=== PATIENT | male | born 1965 | race Caucasian/White ===

== ENCOUNTER → 2018-01-11 | Outpatient (CLI) | payer BC ==
[2018-01-11 09:31] LABS: Basophils # (A) 0.1 k/uL (0-0.2); Basophils % (A) 1 %; Eosinophils # (A) 0.2 k/uL (0-0.7); Eosinophils % (A) 3 %; HCT 49.6 % (39.0-53.0); HGB 16.3 gm/dL (13.0-17.5); Lymphocytes % (A) 35 %; MCH 33.2 pg (25.0-35.0); MCHC 32.8 g/dL (31.0-37.0); MCV 101.2 fL (80.0-100.0); Macrocytosis Slight; Mean Platelet Volume 6.8; Monocytes # (A) 0.3 k/uL (0-1.0); Monocytes % (A) 4 %; Neutrophils # (A) 4.7 k/uL (1.3-7.7); Neutrophils % (A) 56 %; Platelet Count 212 k/uL (150-450); RDW 14.2 % (11.5-15.5); WBC 8.5 k/uL (3.8-10.6)
== END | disposition home or self-care (01) ==
LOC: LABWHC1 08:38
PROVIDERS: ATTEND Surgery
DX: Z01.818 Encounter for other preprocedural examination (principal); F17.200 Nicotine dependence, unspecified, uncomplicated; D64.9 Anemia, unspecified; K43.2 Incisional hernia without obstruction or gangrene; Z01.812 Encounter for preprocedural laboratory examination
CPT/HCPCS: 36415; 85025; 93005

== ENCOUNTER 2018-01-12 08:30 | Inpatient (IN) | payer BC ==
[2018-01-10 15:21] VITALS: BMI 38.7
[~2018-01-12 08:30] MED LIST: HEPARIN SODIUM,PORCINE 5,000 UNIT/ML 1 ML VIAL SQ ONE; MORPHINE SULFATE 2 MG/ML SYRINGE IV PRN; ceFAZolin IN SWFI 2 GM/20 ML SYRINGE IVP ONE
[2018-01-12] MEDS: LACTATED RINGERS 1,000 ML IV SCH ×2 (09:44→18:01)
[2018-01-12 09:46] LABS: Glucose,Whole Blood 136 mg/dL (75-99)
[2018-01-12] MEDS ORDERED: DEXAMETHASONE SOD PHOSPHATE 10 MG/ML 1 ML VIAL IV ONE (10:00)
[2018-01-12] MEDS ORDERED: ONDANSETRON 4 MG/2 ML VIAL IVP ONE (10:00)
--- NOTE | 2018-01-12 10:08 | P.GSHP ---
History of Present Illness H&P Date: 01/12/18 Chief Complaint: Incisional hernia This is a 52-year-old male who's developed an incisional hernia in the upper midline. Patient is today for laparoscopic robotic system repair. Past Medical History Past Medical History: COPD, Diabetes Mellitus, Hyperlipidemia, Hypertension, Osteoarthritis (OA), Renal Disease, Sleep Apnea/CPAP/BIPAP Additional Past Medical History / Comment(s): CPAP MACHINE , acute renal failure 2014- History of Any Multi-Drug Resistant Organisms: None Reported Past Surgical History: Bowel Resection, Cholecystectomy Additional Past Surgical History / Comment(s): Laparoscopic R colectomy. HAD FRONT TEETH PULLED UNDER ANESTHESIA, COLONOSCOPY Past Anesthesia/Blood Transfusion Reactions: No Reported Reaction Additional Past Anesthesia/Blood Transfusion Reaction / Comment(s): Pt has never received blood. Smoking Status: Current every day smoker - Past Family History Father Family Medical History: Diabetes Mellitus, Prostate Disorder, Renal Disease Additional Family Medical History / Comment(s): Father is 72 yrs old. Mother Family Medical History: Diabetes Mellitus Additional Family Medical History / Comment(s): Mother is 72 yrs old. She has a murmur. Pt does not know what type of blood disorder but it causes her to bruise easily. Medications and Allergies Home Medications Medication Instructions Recorded Confirmed Type amLODIPine BES/OLMESARTAN MED 1 tab PO DAILY 01/14/15 11/14/15 History [Nica 10-40 mg Tablet] buPROPion XL [Wellbutrin XL] 150 mg PO DAILY 05/10/15 01/10/18 History Atorvastatin [Lipitor] 80 mg PO HS 11/14/15 01/12/18 History Glimepiride [Amaryl] 2 mg PO BID #60 tab 11/19/15 01/12/18 Rx Naproxen [Naprosyn] 500 mg PO Q12HR PRN 01/10/18 01/10/18 History Allergies Allergy/AdvReac Type Severity Reaction Status Date / Time No Known Allergies Allergy Verified 01/10/18 14:35 Surgical - Exam Vital Signs Temp Pulse Resp BP Pulse Ox 98.1 F 97 16 151/96 98 01/12/18 09:43 01/12/18 09:43 01/12/18 09:43 01/12/18 09:43 01/12/18 09:43 - General well developed, no distress - Eyes PERRL - ENT normal pinna - Neck no masses - Respiratory normal expansion - Cardiovascular Rhythm: regular - Abdomen Abdomen: soft, non tender Hernia: incisional (5 cm incisional hernia located in the midline above the umbilicus) Results - Labs Abnormal Lab Results - Last 24 Hours (Table) 01/12/18 Range/Units 09:41 POC Glucose (mg/dL) 136 H (75-99) mg/dL Assessment and Plan Assessment: Incisional hernia. We'll perform laparoscopic robotic system repair.
[2018-01-12] MEDS ORDERED: MIDAZOLAM 2 MG/2 ML VIAL IVP ONE (10:23)
[2018-01-12] MEDS ORDERED: SUCCINYLCHOLINE CHLORIDE 100 MG/5 ML SYR IV ONE (10:55)
[2018-01-12] MEDS ORDERED: NEOSTIGMINE 1 MG/ML 10 ML VIAL ONE (10:55)
[2018-01-12] MEDS ORDERED: ROCURONIUM BROMIDE 10 MG/ML 10 ML VIAL IV ONE (10:55)
[2018-01-12] MEDS ORDERED: ePHEDrine SULFATE/0.9% NACL/PF 50 MG/5 ML SYRINGE IV ONE (10:55)
[2018-01-12] MEDS ORDERED: PROPOFOL 10 MG/ML 20 ML VIAL IV ONE (10:55)
[2018-01-12] MEDS ORDERED: PHENYLEPHRINE-0.9% NACL SYG 1 MG/10 ML SYRINGE ONE (10:55)
[2018-01-12] MEDS ORDERED: MIDAZOLAM 2 MG/2 ML VIAL ONE (10:55)
[2018-01-12] MEDS ORDERED: fentaNYL (PF) 50 MCG/ML 2 ML AMP ONE (10:55)
[2018-01-12] MEDS ORDERED: KETOROLAC 30 MG/ML 1 ML VIAL ONE (10:55)
[2018-01-12] MEDS ORDERED: GLYCOPYRROLATE 0.2 MG/ML 2 ML VIAL ONE (10:55)
[2018-01-12] MEDS ORDERED: BUPIVACAIN-EPI 0.5%-1:200,000 30 ML VIAL SQ ONE (11:18)
[2018-01-12] MEDS: HYDROmorphone 0.5 MG/0.5 ML SYRINGE IVP PRN ×4 (12:48→13:13)
--- NOTE | 2018-01-12 12:49 | P.OP ---
Date of Procedure: 01/12/18 Preoperative Diagnosis: Incisional hernia Postoperative Diagnosis: Incisional hernia Procedure(s) Performed: Laparoscopic robotic repair of incisional hernia Anesthesia: PAT Surgeon: Tramaine Peña Estimated Blood Loss (ml): 5 Pathology: none sent Condition: stable Disposition: PACU Description of Procedure: The patient was placed on the operating table in the supine position. He received general anesthesia. His abdomen was prepped and draped usual fashion. Using a 5 mm optical trocar under direct visualization the peritoneal cavity was entered in the left upper quadrant. The abdomen was then insufflated. The laparoscope was placed back into the perineal cavity. Next a 8 mm robotic trocar was placed in the left lower quadrant and a 12 mm robotic trocar was placed in the left lateral position. The original 5 mm trocar was exchanged for a 8 mm robotic trocar. The patient's placed in the left side up position. And the patient was docked to the robot. The incisional hernia was visualized. Using hook cautery the peritoneum over the incisional hernia was excised. The fascial opening was repaired using 0V LOC suture. Next a piece of 11 cm round ventral light ST mesh was placed into the. Cavity and secured with 2 OV lock suture. The patient was undocked the robot. The needles were retrieved. The fascia of the 12 mm trocar site was closed with 0 Ethibond suture. Skin was closed interrupted 3-0 Monocryl suture. Dermabond dressings was applied. Patient tolerated procedure well and was sent to recovery room stable condition.
[2018-01-12] MEDS ORDERED: KETOROLAC 30 MG/ML 1 ML VIAL IVP ONE (13:56)
[2018-01-12] MEDS ORDERED: LACTATED RINGERS 1,000 ML IV ONE (14:09)
[2018-01-12 14:47] LABS: Glucose,Whole Blood 167 mg/dL (75-99)
[2018-01-12] MEDS ORDERED: HYDROcodone/APAP 5-325MG 1 EACH TAB PO ONE (15:01)
[2018-01-12] MEDS ORDERED: ONDANSETRON 4 MG/2 ML VIAL IVP PRN (16:45)
[2018-01-12] MEDS ORDERED: NAPROXEN 250 MG TAB PO PRN (17:04)
[2018-01-12] MEDS: HYDROmorphone 1 MG/ML 1 ML SYRINGE IVP PRN ×2 (18:07→21:07)
[2018-01-12] MEDS: GLIMEPIRIDE 2 MG TAB PO SCH (18:30)
[2018-01-12 19:56] LABS: Glucose,Whole Blood 157 mg/dL (75-99)
[2018-01-12] MEDS: ATORVASTATIN 80 MG TAB PO SCH (21:07)
[2018-01-12] MEDS: INSULIN ASPART 100 UNIT/ML 1 ML 10 ML VIAL SQ SCH (21:07)
[2018-01-13] MEDS: HYDROmorphone 1 MG/ML 1 ML SYRINGE IVP PRN ×8 (00:44→22:35)
[2018-01-13 06:56] LABS: Glucose,Whole Blood 115 mg/dL (75-99)
[2018-01-13] MEDS: INSULIN ASPART 100 UNIT/ML 1 ML 10 ML VIAL SQ SCH ×4 (07:47→21:11)
[2018-01-13] MEDS: LACTATED RINGERS 1,000 ML IV SCH ×3 (07:47→11:29)
[2018-01-13] MEDS: GLIMEPIRIDE 2 MG TAB PO SCH ×2 (07:54→17:35)
[2018-01-13] MEDS ORDERED: OLMESARTAN MED PO SCH (09:00)
[2018-01-13] MEDS ORDERED: AMLODIPINE BES PO SCH (09:00)
[2018-01-13] MEDS: LOSARTAN 50 MG TAB PO SCH (09:46)
[2018-01-13] MEDS: buPROPion XL 150 MG TAB.ER.24H PO SCH (09:46)
[2018-01-13] MEDS: amLODIPine 10 MG TAB PO SCH (09:46)
[2018-01-13] MEDS ORDERED: SODIUM CHLORIDE 0.9% 1,000 ML IV ONE (10:05)
[2018-01-13] MEDS: TAMSULOSIN 0.4 MG CAP.ER.24H PO SCH (10:29)
--- NOTE | 2018-01-13 11:42 | P.PN ---
Subjective Progress Note Date: 01/13/18 52-year-old male standing up at the bedside this morning attempting to urinate patient developed urinary retention straight cath last night. Currently abdomen is distended bladder scan postvoid residual greater than [address] catheter inserted with 600 returning surgical dressing sites dry. Abdominal binder in place Hypoactive bowel tones states not stooling but is passing gas Patient is postop laparoscopic repair of incisional hernia done on January 12 for incisional hernia. Objective - Vital Signs Vital signs: Vital Signs Temp 98.0 F 01/13/18 07:45 Pulse 67 01/13/18 07:45 Resp 18 01/13/18 07:45 BP 125/88 01/13/18 07:45 Pulse Ox 92 L 01/13/18 07:45 Intake & Output 01/12/18 01/13/18 01/13/18 18:59 06:59 18:59 Intake Total 1999 1945 320 Output Total 5 1520 550 Balance 1994 425 -230 Weight 115.666 kg Intake: IV 2000 Intake, IV Titration 975 Amount Lactated Ringers 1,000 ml 975 @ 75 mls/hr IV .[id number] [facility] Rx#:[id number] Oral 970 320 Output: Urine 1520 550 Straight 510 550 Estimated Blood Loss 5 Other: Voiding Method Urinal Urinal Urinal # Voids 1 - Exam GENERAL APPEARANCE:52 year old male standing at the edge of the bed states has a lot of abdominal pain "cannot urinate" VITAL SIGNS: Reviewed HEENT: Head is normocephalic and atraumatic. Pupils are equal and reactive. The nares are patent. Oropharynx is clear without lesions. NECK: Supple without lymphadenopathy. Traches midline. HEART: S1, S2. Regular rate and rhythm. No murmur denying chest pain LUNGS: Posterior diminished at the bases nasal cannula at 3 L sats are 92% ABDOMEN: Soft, obese diffuse tenderness mildly distended surgical dressing site dry states passing gas no stool nausea sensation no emesis. Hypoactive bowel tones. No peritoneal signs. No palpable organomegaly or masses. EXTREMITIES: Normal skin color and turgor. No cyanosis, rash, ulceration, clubbing or edema. Radial pedal pulses are 2/4 bilaterally. NEUROLOGICAL: No focal deficits. Strength and sensation are grossly intact. - Labs Labs: Abnormal Lab Results - Last 24 Hours (Table) 01/12/18 01/12/18 01/13/18 Range/Units 14:38 19:55 06:54 POC Glucose (mg/dL) 167 H 157 H 115 H (75-99) mg/dL Assessment and Plan Assessment: Impression Postop January 12 laparoscopic robotic repair of incisional hernia Morbid obesity BMI 39 History of sleep apnea with the use of CPAP therapy Urinary retention postop unexpected suspect due to anesthesia and analgesics History of incisional hernia Current have a day smoker History of a laparoscopic right colectomy Plan Pain control Continue postop surgical care Fluid bolus 1 L for poor oral intake Flomax 0.4mg daily start now Insert indwelling Street catheter now DVT and GI prophylaxis Encourage ambulation The above impression and plan of care have been discussed and directed by signing physician. Judith Roblero nurse practitioner acting as scribe for signing physician.
[2018-01-13] MEDS: FAMOTIDINE 20 MG TAB PO SCH (12:01)
[2018-01-13] MEDS: HEPARIN SODIUM,PORCINE 5,000 UNIT/ML 1 ML VIAL SQ SCH ×3 (12:01→23:27)
[2018-01-13 13:00] LABS: Glucose,Whole Blood 200 mg/dL (75-99)
[2018-01-13 17:23] LABS: Glucose,Whole Blood 94 mg/dL (75-99)
[2018-01-13 20:24] LABS: Glucose,Whole Blood 104 mg/dL (75-99)
[2018-01-13] MEDS: ATORVASTATIN 80 MG TAB PO SCH (21:15)
--- NOTE | 2018-01-13 22:47 | CONS ---
CONSULTATION I am covering for Dr. Tipton. DATE OF SERVICE: 01/13/2018. REASON FOR CONSULTATION: Advice regarding diabetes and other medical issues requested by Surgery. HISTORY OF PRESENT ILLNESS: This 52 -year-old gentleman with past history of COPD, diabetes, hypertension, hyperlipidemia, history of DJD, sleep apnea, history of anxiety being followed by Dr. Curtis Tipton in the outpatient setting underwent laparoscopic robotic repair of incisional hernia. The patient tolerated the procedure well. Patient being closely monitored. There is no history of chest pain. No history of palpitations, headache, loss of consciousness, seizures. Accu-Cheks have been 157, 159, 200. PAST MEDICAL HISTORY: History of COPD, diabetes, hypertension, hyperlipidemia, DJD, history of sleep apnea. MEDICATIONS ARE: 1. Wellbutrin XR 150 mg daily. 2. Naprosyn 500 mg b.i.d. 3. Amaryl 2 mg b.i.d. 4. Lipitor 80 mg b.i.d. 5. Boulevard 7.5 q.4h p.r.n. 6. Colace 100 mg b.i.d. ALLERGIES: None. FAMILY HISTORY: History of diabetes in the family. SOCIAL HISTORY: History of alcohol, TSH. History of smoking. REVIEW OF SYSTEMS: ENT: No diminished vision. No diminished hearing. CARDIOVASCULAR: No angina or palpitations. RESPIRATORY: No cough. No hemoptysis. GI no nausea or vomiting. no dysuria. Nervous system: No numbness or weakness. ALLERGY/IMMUNOLOGY: No asthma or hayfever. MUSCULOSKELETAL: As mentioned earlier. HEMATOLOGY/ONCOLOGY: No history of anemia. ENDOCRINE: As mentioned earlier. Constitutional: As mentioned earlier. DERMATOLOGY: Negative. RHEUMATOLOGY: Negative. PSYCHIATRIC: As mentioned earlier. PHYSICAL EXAMINATION: GENERAL: The patient is alert, oriented times three. VITAL SIGNS: Pulse 67, blood pressure 120/80, respiration 18, temperature 98 degrees, pulse ox 98% on 3 L. HEENT is conjunctivae normal. Oral mucosa moist. Neck is no jugular venous distention. No carotid bruit. No lymph node enlargement. CARDIOVASCULAR: S1, S2 muffled. RESPIRATORY: Breath sounds diminished in the bases. No rhonchi. No crackles. ABDOMEN: Soft, status post surgery. Legs are no edema. No swelling. NERVOUS SYSTEM: No focal deficits. Moves all four extremities. Lymphatics: No lymph nodes palpable in the neck, axillae or groin. LABS: The preop labs are CBC, MCV 101.2 otherwise, chemistry is sodium 147. Other labs are reviewed. ASSESSMENT: 1. Status post laparoscopic robotic repair of incisional hernia. 2. History of chronic obstructive pulmonary disease. 3. Diabetes mellitus type 2. 4. Hypertension. 5. Hyperlipidemia. 6. History of degenerative joint disease. 7. Sleep apnea. 8. CPAP machine. 9. History of cholecystectomy. 10.History of bowel resection. 11.History of laparoscopic right colectomy. 12.History of anxiety. RECOMMENDATIONS AND DISCUSSION: In this 52-year-old gentleman who presented with multiple complex medical issues, we will monitor the patient closely, continue the current medications, management and symptomatic treatment. Otherwise, at this time, I recommend monitor the blood sugars and resume the home medications. We will follow the patient closely with you. The patient may be asked to follow up with Dr. Tipton after discharge. Thank you Dr. Peña for letting us participate in the care of this patient. DVT prophylaxis. Incentive spirometry. MMODL / IJN: [id number] /
[2018-01-14] MEDS: HYDROmorphone 1 MG/ML 1 ML SYRINGE IVP PRN ×5 (01:48→23:33)
[2018-01-14] MEDS: HYDROcodone/APAP 5-325MG 1 EACH TAB PO PRN ×2 (06:03→12:25)
[2018-01-14 07:15] LABS: Glucose,Whole Blood 104 mg/dL (75-99)
[2018-01-14 07:53] LABS: Basophils # (A) 0.1 k/uL (0-0.2); Basophils % (A) 1 %; Eosinophils # (A) 0.2 k/uL (0-0.7); Eosinophils % (A) 2 %; HCT 45.4 % (39.0-53.0); HGB 14.3 gm/dL (13.0-17.5); Lymphocytes # (A) 3.3 k/uL (1.0-4.8); Lymphocytes % (A) 30 %; MCH 32.4 pg (25.0-35.0); MCHC 31.5 g/dL (31.0-37.0); MCV 102.9 fL (80.0-100.0); Macrocytosis Slight; Mean Platelet Volume 7.4; Monocytes # (A) 0.7 k/uL (0-1.0); Monocytes % (A) 6 %; Neutrophils # (A) 6.8 k/uL (1.3-7.7); Neutrophils % (A) 61 %; Platelet Count 200 k/uL (150-450); RBC 4.41 m/uL (4.30-5.90); WBC 11.1 k/uL (3.8-10.6)
[2018-01-14 08:08] LABS: ALT 37 U/L (21-72); AST 56 U/L (17-59); Albumin 3.7 g/dL (3.5-5.0); Alkaline Phosphatase 80 U/L (38-126); Anion Gap 7 mmol/L; Blood Urea Nitrogen 16 mg/dL (9-20); Calcium 8.8 mg/dL (8.4-10.2); Carbon Dioxide 30 mmol/L (22-30); Chloride 105 mmol/L (98-107); Glucose 101 mg/dL (74-99); Potassium 4.3 mmol/L (3.5-5.1); Sodium 142 mmol/L (137-145); Total Bilirubin 0.8 mg/dL (0.2-1.3); Total Protein 6.5 g/dL (6.3-8.2)
[2018-01-14] MEDS: HEPARIN SODIUM,PORCINE 5,000 UNIT/ML 1 ML VIAL SQ SCH ×4 (08:12→23:33)
[2018-01-14] MEDS: amLODIPine 10 MG TAB PO SCH (08:13)
[2018-01-14] MEDS: GLIMEPIRIDE 2 MG TAB PO SCH ×2 (08:13→18:02)
[2018-01-14] MEDS: LOSARTAN 50 MG TAB PO SCH (08:13)
[2018-01-14] MEDS: TAMSULOSIN 0.4 MG CAP.ER.24H PO SCH (08:13)
[2018-01-14] MEDS: FAMOTIDINE 20 MG TAB PO SCH (08:13)
--- NOTE | 2018-01-14 08:42 | P.PN ---
Subjective Progress Note Date: 01/14/18 52-year-old male seen at the bedside states he did ambulate in the hallway several times yesterday. Not passing gas no nausea vomiting tolerating a diet states no stool indwelling Street catheter in place abdomen obese soft surgical tenderness appropriate with an abdominal binder in place surgical dressing site dry few hypoactive bowel tones postop laparoscopic repair of incisional hernia done on January 12 for incisional hernia. Objective - Vital Signs Vital signs: Vital Signs Temp 98.3 F 01/14/18 08:01 Pulse 78 01/14/18 08:01 Resp 20 01/14/18 08:01 BP 146/92 01/14/18 08:01 Pulse Ox 95 01/14/18 08:01 Intake & Output 01/13/18 01/14/18 01/14/18 18:59 06:59 18:59 Intake Total 2275 900 Output Total 1000 875 580 Balance 1275 25 -580 Intake: Intake, IV Titration 1375 900 Amount Lactated Ringers 1,000 ml 375 900 @ 75 mls/hr IV .[id number] [facility] Rx#:[id number] Sodium Chloride 0.9% 1, 1000 000 ml @ 999 mls/hr IV . Q1H1M [facility] Rx#:[id number] Oral 900 Output: Urine 1000 875 580 Straight 1000 580 Other: Voiding Method Indwelling Catheter Indwelling Catheter - Exam GENERAL APPEARANCE:52 year old male resting in bed VITAL SIGNS: Reviewed reviewed HEENT: Head is normocephalic and atraumatic. Pupils are equal and reactive. The nares are patent. Oropharynx is clear without lesions. NECK: Supple without lymphadenopathy. Traches midline. HEART: S1, S2. Regular rate and rhythm. No murmur denying chest pain LUNGS: Posterior diminished at the bases nasal cannula at 3 L sats are 92% ABDOMEN: Soft, obese diffuse tenderness mildly distended surgical dressing site dry states passing gas no stool nausea sensation no emesis tolerating a diet. Hypoactive bowel tones. No peritoneal signs. No palpable organomegaly or masses. EXTREMITIES: Normal skin color and turgor. No cyanosis, rash, ulceration, clubbing or edema. Radial pedal pulses are 2/4 bilaterally. NEUROLOGICAL: No focal deficits. Strength and sensation are grossly intact. - Labs CBC & Chem 7: 01/14/18 07:01 01/14/18 07:01 Labs: Abnormal Lab Results - Last 24 Hours (Table) 01/13/18 01/13/18 01/14/18 Range/Units 12:58 20:22 07:01 WBC 11.1 H (3.8-10.6) k/uL MCV 102.9 H (80.0-100.0) fL Glucose (74-99) mg/dL POC Glucose (mg/dL) 200 H 104 H (75-99) mg/dL 01/14/18 01/14/18 Range/Units 07:01 07:13 WBC (3.8-10.6) k/uL MCV (80.0-100.0) fL Glucose 101 H (74-99) mg/dL POC Glucose (mg/dL) 104 H (75-99) mg/dL Assessment and Plan Assessment: Impression Postop January 12 laparoscopic robotic repair of incisional hernia Morbid obesity BMI 39 History of sleep apnea with the use of CPAP therapy Urinary retention postop unexpected suspect due to anesthesia and analgesics History of incisional hernia Current have a day smoker History of a laparoscopic right colectomy Plan Pain control Continue postop surgical care Flomax 0.4mg daily start now Remove Street catheter now check postvoid residuals Anticipate discharge in the next 24-48 hours DVT and GI prophylaxis Encourage ambulation The above impression and plan of care have been discussed and directed by signing physician. Judith Roblero nurse practitioner acting as scribe for signing physician.
[2018-01-14] MEDS: INSULIN ASPART 100 UNIT/ML 1 ML 10 ML VIAL SQ SCH ×4 (08:57→20:30)
[2018-01-14] MEDS: LACTATED RINGERS 1,000 ML IV SCH ×2 (09:37→16:39)
[2018-01-14] MEDS: buPROPion XL 150 MG TAB.ER.24H PO SCH (09:37)
[2018-01-14 12:26] LABS: Glucose,Whole Blood 110 mg/dL (75-99)
--- NOTE | 2018-01-14 12:54 | P.DS ---
Providers Date of admission: 01/13/18 13:45 Expected date of discharge: 01/14/18 Attending physician: Tramaine Peña Consults: 01/12/18 16:56 Consult Physician Stat Consulting Provider: Elis Strong Consult Reason/Comments: MEDICAL MANAGEMENT Do you want consulting provider notified?: Yes Primary care physician: [facility] Course: 52-year-old male who developed an incisional hernia in the upper midabdomen. Presented to undergo a elective laparoscopic robotic system repair of the incisional hernia done on January 12 postoperative patient developed unexpected urinary retention suspect due to anesthesia and analgesics. Patient was started on flomax . Street catheter was inserted. On the day of discharge the Street catheter was removed. Patient was able to void Impression discharge diagnosis Postop January 12 laparoscopic robotic repair of incisional hernia Morbid obesity BMI 39 History of sleep apnea with the use of CPAP therapy Urinary retention postop unexpected suspect due to anesthesia and analgesics History of incisional hernia Current have a day smoker History of a laparoscopic right colectomy The above impression and plan of care have been discussed and directed by signing physician. Judith Roblero nurse practitioner acting as scribe for signing physician. Plan - Discharge Summary Discharge Rx Participant: Yes New Discharge Prescriptions: New Docusate [Colace] 100 mg PO BID #20 capsule HYDROcodone/APAP 7.5-325MG [Follansbee 7.5-325] 1 tab PO Q4H PRN 3 Days #18 tab PRN Reason: Pain No Action buPROPion XL [Wellbutrin XL] 150 mg PO DAILY Atorvastatin [Lipitor] 80 mg PO HS Glimepiride [Amaryl] 2 mg PO BID #60 tab Naproxen [Naprosyn] 500 mg PO Q12HR PRN PRN Reason: Pain Discharge Medication List buPROPion XL [Wellbutrin XL] 150 mg PO DAILY 05/10/15 [History] Atorvastatin [Lipitor] 80 mg PO HS 11/14/15 [History] Glimepiride [Amaryl] 2 mg PO BID #60 tab 11/19/15 [Rx] Naproxen [Naprosyn] 500 mg PO Q12HR PRN 01/10/18 [History] Docusate [Colace] 100 mg PO BID #20 capsule 01/12/18 [Rx] HYDROcodone/APAP 7.5-325MG [Follansbee 7.5-325] 1 tab PO Q4H PRN 3 Days #18 tab 01/12 [Rx] Follow up Appointment(s)/Referral(s): Tramaine Peña MD [STAFF PHYSICIAN] - 01/18/18 3:20 pm Patient Instructions/Handouts: *Surgery [facility] - (Anesthesia) Discharge Instructions Outpatient Surgery, Laparoscopic Herniorrhaphy (DC) Activity/Diet/Wound Care/Special Instructions: ICE TO ABDOMEN TODAY OK SHOWER 24HR KEEP BINDER ON ALL TIMES EXCEPT WHEN SHOWERING, NO TUB BATH OR POOL. NO HEAVY LIFTING
--- NOTE | 2018-01-14 15:18 | PN ---
PROGRESS NOTE I am covering for Dr. Tipton. DATE OF SERVICE: 01/14/2018 This 52-year-old gentleman who was admitted after laparoscopic robotic repair of incisional hernia is improving significantly. No chest pain. No palpitations. No fever. On exam, alert and oriented x3. Pulse 78, blood pressure 146/92, respiration 20, temperature 98.3, pulse ox 94% on 4 L. HEENT: Conjunctivae normal. Oral mucosa moist. NECK: No jugular venous distention. No carotid bruit. No lymph node enlargement. CARDIOVASCULAR SYSTEM: S1, S2 muffled. RESPIRATORY SYSTEM: Breath sounds diminished at the bases. No rhonchi. No crackles. ABDOMEN: Soft. Status post surgery. LEGS: No edema. No swelling. NERVOUS SYSTEM: No focal deficit. LABS: WBC 11.1. Glucose 101. ASSESSMENT: 1. Status post laparoscopic robotic repair of incisional hernia. 2. History of chronic obstructive pulmonary disease. 3. Diabetes mellitus, type 2. 4. Hypertension. 5. Hyperlipidemia. 6. History of degenerative joint disease. 7. Sleep apnea, on CPAP machine. 8. History of cholecystectomy. 9. History of bowel resection. 10.History of laparoscopic right colectomy. 11.History of anxiety. RECOMMENDATIONS AND DISCUSSION: I recommend to continue current medication, continue with the monitoring, symptomatic treatment. Otherwise at this time I would recommend incentive spirometry. Resume the home medication. Follow closely with Dr. Tipton next week. Further recommendations to follow. MMODL / IJN: [id number] /
[2018-01-14 17:16] LABS: Glucose,Whole Blood 89 mg/dL (75-99)
[2018-01-14] MEDS: ATORVASTATIN 80 MG TAB PO SCH (20:24)
[2018-01-14 20:25] LABS: Glucose,Whole Blood 161 mg/dL (75-99)
[2018-01-15] MEDS: HYDROmorphone 1 MG/ML 1 ML SYRINGE IVP PRN ×3 (02:31→08:23)
[2018-01-15 07:05] LABS: Glucose,Whole Blood 86 mg/dL (75-99)
[2018-01-15] MEDS: INSULIN ASPART 100 UNIT/ML 1 ML 10 ML VIAL SQ SCH ×2 (08:16→13:00)
[2018-01-15 08:19] VITALS: BP 156/95; PULSE 87; RESP 17; TEMP 98.7
[2018-01-15] MEDS: HEPARIN SODIUM,PORCINE 5,000 UNIT/ML 1 ML VIAL SQ SCH (08:23)
[2018-01-15] MEDS: LOSARTAN 50 MG TAB PO SCH (08:24)
[2018-01-15] MEDS: TAMSULOSIN 0.4 MG CAP.ER.24H PO SCH (08:24)
[2018-01-15] MEDS: amLODIPine 10 MG TAB PO SCH (08:24)
[2018-01-15] MEDS: FAMOTIDINE 20 MG TAB PO SCH (08:24)
[2018-01-15] MEDS: buPROPion XL 150 MG TAB.ER.24H PO SCH (08:24)
[2018-01-15] MEDS: GLIMEPIRIDE 2 MG TAB PO SCH (08:24)
[2018-01-15] MEDS: LACTATED RINGERS 1,000 ML IV SCH (08:25)
--- NOTE | 2018-01-15 09:24 | P.PN ---
Progress Note - Text Progress Note Date: 01/15/18 The patient resting comfortably his bed. His vital signs are stable. On exam his vital abdomen is soft. Incision sites clean and intact. Patiently discharged home today. He'll follow-up in one week.
[2018-01-15 11:55] LABS: Glucose,Whole Blood 134 mg/dL (75-99)
[2018-01-15] MEDS: HYDROcodone/APAP 5-325MG 1 EACH TAB PO PRN (12:44)
== END 2018-01-15 13:10 | disposition home or self-care (01) | DRG 355 ==
LOC: OR 08:30 → 3SUR 12:46 → OR 01-13 02:41 → 3SUR 01-13 07:43 → OBSVTOIN 01-13 13:45
PROVIDERS: ADMIT Surgery; ATTEND Surgery
PROC: 0WUF4JZ Supplement Abdominal Wall with Synthetic Substitute, Percutaneous Endoscopic Approach (ICD-10-PCS; principal; 2018-01-12 10:35)
PROC: 8E0W4CZ Robotic Assisted Procedure of Trunk Region, Percutaneous Endoscopic Approach (ICD-10-PCS; principal; 2018-01-12 10:35)
PROC: 3E0M45Z Introduction of Adhesion Barrier into Peritoneal Cavity, Percutaneous Endoscopic Approach (ICD-10-PCS; principal; 2018-01-12 10:35)
DX: K43.2 Incisional hernia without obstruction or gangrene (principal); E11.9 Type 2 diabetes mellitus without complications; E66.01 Morbid (severe) obesity due to excess calories; E78.5 Hyperlipidemia, unspecified; F17.200 Nicotine dependence, unspecified, uncomplicated; G47.30 Sleep apnea, unspecified; Z99.89 Dependence on other enabling machines and devices; I10 Essential (primary) hypertension; J44.9 Chronic obstructive pulmonary disease, unspecified; Z68.39 Body mass index [BMI] 39.0-39.9, adult; Z83.3 Family history of diabetes mellitus; Z90.49 Acquired absence of other specified parts of digestive tract; Z79.84 Long term (current) use of oral hypoglycemic drugs; R33.0 Drug induced retention of urine; T41.205A Adverse effect of unspecified general anesthetics, initial encounter; T39.95XA Adverse effect of unspecified nonopioid analgesic, antipyretic and antirheumatic, initial encounter
CPT/HCPCS: 64488; 80053; 83036; 85025; 86850; 86900; 86901; 94760; 94762

== ENCOUNTER → 2024-03-20 | Outpatient (CLI) | payer BC ==
--- NOTE | 2024-03-21 09:16 | MR ---
EXAMINATION TYPE: MR nicci/lspine wo con DATE OF EXAM: 03/20/2024 7:20 PM COMPARISON: 02/14/2024. CLINICAL INDICATION: Male, 59 years old with history of M47.816, R29.6, M54.50, M54.6, M54.16; mid a nd low back pain that radiates down right leg TECHNIQUE: Multi planar, multi sequence imaging was performed utilizing: T1-weighted, T2-weighted, a nd turbo inversion recovery imaging of the thoracic and lumbar spine. IV Contrast: mL (None, if empty) FINDINGS: Alignment: The thoracic and lumbar vertebral bodies have preserved heights. There is grade 1 atrial l isthesis of L5 and S1. Cord: The conus medullaris and the distal spinal cord appear unremarkable with regards to their signa l intensity and morphology. Bones/Discs: Bone signal is within normal limits. Moderate multilevel disc space narrowing osteophyte formation Modic endplate changes throughout the spine. There is bony edema on the midthoracic spine at T5 tod7. THORACIC: Multilevel disc bulging throughout the spine without significant spinal canal stenosis. Mul tiple levels disc bulging encroaches on the ventral subarachnoid space. The neural foramen throughout the thoracic spine are patent with a few areas of mild stenosis suggested. No high-grade neural fora marlo stenosis. LUMBAR: T12-L1: No evidence of significant spinal canal stenosis or neural foraminal stenosis. L1-L2: No evidence of significant spinal canal stenosis or neural foraminal stenosis. L2-L3: Disc bulge and facet joint arthropathy result in mild spinal canal and mild bilateral neural f oraminal stenosis. L3-L4: Disc bulge and facet joint arthropathy result in mild spinal canal and mild bilateral neural f oraminal stenosis. L4-L5: Disc bulge and facet joint arthropathy result in mild spinal canal and mild bilateral neural f oraminal stenosis. L5-S1: Disc uncovering from grade 1 anterolisthesis and facet joint arthropathy with mild spinal diana l stenosis and severe bilateral neural foraminal stenosis. Other findings: Adenopathy throughout the retroperitoneum with large conglomerate lymph nodes identi fied. Including bilateral external iliac measuring up to 13 mm on the left and 15 mm in the right marcelino und the aorta measuring up to 33 mm and IVC measuring up to 18 mm. IMPRESSION: 1. Motion limited exam. 2. Lymphadenopathy throughout the retroperitoneum correlate with history of malignancy. Further work up recommended. 3. Bony edema in T5, T6 and T7. Findings favored to be on a degenerative basis. 4. Grade 1 anterolisthesis of L5 on S1 with severe bilateral neural foraminal stenosis. The spinal c anal is patent at this level. 5. No evidence for significant spinal canal stenosis. 6. No evidence for disc herniation. Findings communicated to Dr. He Chery DO on 03/21/2024 9:[address] Paul Tucker. [facility], , 03/21/2024 9:13 AM
== END | disposition home or self-care (01) ==
LOC: RADMRIMAIN 17:43
PROVIDERS: ATTEND Orthopaedic Surgery
DX: M47.26 Other spondylosis with radiculopathy, lumbar region (principal); M43.17 Spondylolisthesis, lumbosacral region; R29.6 Repeated falls; R59.1 Generalized enlarged lymph nodes; R06.9 Unspecified abnormalities of breathing; M99.73 Connective tissue and disc stenosis of intervertebral foramina of lumbar region; R60.9 Edema, unspecified
CPT/HCPCS: 72146; 72148

== ENCOUNTER 2024-04-03 15:52 | Inpatient (IN) | payer BC ==
--- NOTE | 2024-04-03 16:22 | ED ---
Abdominal Pain HPI - General Source: patient Mode of arrival: ambulatory Limitations: no limitations <Ray Robles - Last Filed: 04/03/24 16:22> <Paul Monte - Last Filed: 04/03/24 23:42> - General Chief Complaint: Abdominal Pain Stated Complaint: Abd pain Time Seen by Provider: 04/03/24 16:22 - History of Present Illness Initial Comments: 59-year-old male presenting with chief complaint of abdominal pain. Pain has been ongoing for 4 months and has been getting progressively worse. He does have some diarrhea. No nausea or vomiting. (Ray Robles) 59-year-old male, current smoker presenting with generalized abdominal pain which has been worsening over the past 4 months and has significantly worsened recently. Patient has also had hematuria for some time. He has had associated nausea and vomiting. No measured fever. (Paul Monte) - Related Data Home Medications Medication Instructions Recorded Confirmed buPROPion XL [Wellbutrin XL] 150 mg PO DAILY 05/10/15 01/13/18 Atorvastatin [Lipitor] 80 mg PO HS 11/14/15 01/13/18 Naproxen [Naprosyn] 500 mg PO Q12HR PRN 01/10/18 01/13/18 Previous Rx's Medication Instructions Recorded Glimepiride [Amaryl] 2 mg PO BID #60 tab 11/19/15 Docusate [Colace] 100 mg PO BID #20 capsule 01/12/18 HYDROcodone/APAP 7.5-325MG [[place] 1 tab PO Q4H PRN 3 Days #18 tab 01/12/18 7.5-325] Allergies Allergy/AdvReac Type Severity Reaction Status Date / Time No Known Allergies Allergy Verified 04/03/24 16:10 Review of Systems ROS Other: All systems not noted in ROS Statement are negative. <Ray Robles - Last Filed: 04/03/24 16:22> ROS Other: All systems not noted in ROS Statement are negative. <Paul Monte - Last Filed: 04/03/24 23:42> ROS Statement: Those systems with pertinent positive or pertinent negative responses have been documented in the HPI. Past Medical History Past Medical History: COPD, Diabetes Mellitus, Hyperlipidemia, Hypertension, Osteoarthritis (OA), Renal Disease, Sleep Apnea/CPAP/BIPAP Additional Past Medical History / Comment(s): CPAP MACHINE , acute renal failure 2014- History of Any Multi-Drug Resistant Organisms: None Reported Past Surgical History: Bowel Resection, Cholecystectomy Additional Past Surgical History / Comment(s): Laparoscopic R colectomy. HAD FRONT TEETH PULLED UNDER ANESTHESIA, COLONOSCOPY Past Anesthesia/Blood Transfusion Reactions: No Reported Reaction Additional Past Anesthesia/Blood Transfusion Reaction / Comment(s): Pt has never received blood. Past Psychological History: Anxiety Past Alcohol Use History: Occasional Past Drug Use History: Marijuana - Past Family History Father Family Medical History: Diabetes Mellitus, Prostate Disorder, Renal Disease Additional Family Medical History / Comment(s): Father is 72 yrs old. Mother Family Medical History: Diabetes Mellitus Additional Family Medical History / Comment(s): Mother is 72 yrs old. She has a murmur. Pt does not know what type of blood disorder but it causes her to bruise easily. <Ray Robles - Last Filed: 04/03/24 16:22> General Exam Limitations: no limitations <Ray Robles - Last Filed: 04/03/24 16:22> General appearance: alert, in distress Head exam: Present: atraumatic, normocephalic Eye exam: Present: normal appearance, PERRL ENT exam: Present: mucous membranes dry Neck exam: Present: normal inspection. Absent: tenderness, meningismus Respiratory exam: Present: decreased breath sounds. Absent: respiratory distress, wheezes Cardiovascular Exam: Present: normal rhythm, tachycardia GI/Abdominal exam: Present: soft, tenderness, guarding Neurological exam: Present: alert, oriented X3 Psychiatric exam: Present: normal affect, normal mood Skin exam: Present: warm, dry, intact <OttoanhPaul jewell - Last Filed: 04/03/24 23:42> - General Exam Comments Initial Comments: Visual Physical Exam Vital signs reviewed General: Well-appearing, nontoxic, no acute distress. Head: Normocephalic, atraumatic Eyes: PERRLA, EOMI ENT: Airway patent Chest: Nonlabored breathing Skin: No visual rash, normal skin tone Neuro: Alert and oriented 3 Musculoskeletal: No gross abnormalities (Ray Robles) Course Vital Signs 04/03/24 04/03/24 16:08 20:35 Temperature 98.6 F 98.4 F Pulse Rate 105 H 104 H Respiratory 18 12 Rate Blood Pressure 111/81 98/68 O2 Sat by Pulse 99 96 Oximetry Medical Decision Making <Ray Robles - Last Filed: 04/03/24 16:22> - Lab Data Result diagrams: 04/03/24 19:00 04/03/24 19:00 <Paul Monte - Last Filed: 04/03/24 23:42> - Medical Decision Making I performed the quick note portion of this visit, electronically signed Rya Robles PA-C (Ray Robles) Was pt. sent in by a medical professional or institution (ADITI Callahan, SUBGRADE ROLLER OPERATOR, urgent care, hospital, or skilled nursing...) When possible be specific @ -No Did you speak to anyone other than the patient for history (EMS, parent, family, police, friend...)? What history was obtained from this source @ -No Did you review nursing and triage notes (agree or disagree)? Why? @ -I reviewed and agree with nursing and triage notes Were old charts reviewed (outside hosp., previous admission, EMS record, old EKG, old radiological studies, urgent care reports/EKG's, skilled nursing records)? Report findings @ -No old charts were reviewed Differential Abdominal Pain Men: Appendicitis, cholecystitis, diverticulosis, ischemic bowel, pancreatitis, hepatitis, UTI, gastroenteritis, AAA, incarcerated hernia, bowel obstruction, constipation, inflammatory bowel, hepatitis, peptic ulcer disease, splenic infarction, perforated viscus, testicular torsion, this is not meant to be an all-inclusive list EKG interpreted by me (3pts min.). @ -As above X-rays interpreted by me (1pt min.). @ -None done CT interpreted by me (1pt min.). @CT abdomen pelvis showing lymphadenopathy and bladder wall thickening concerning for neoplasm. U/S interpreted by me (1pt. min.). @ -None done What testing was considered but not performed or refused? (CT, X-rays, U/S, labs)? Why? @ -None What meds were considered but not given or refused? Why? @ -None Did you discuss the management of the patient with other professionals (professionals i.e. , ADITI, SUBGRADE ROLLER OPERATOR, lab, RT, psych nurse, high school social studies tutor, internal security manager, teacher, eeo officer, case packer)? Give summary @ -Case discussed with Dr. Pete who will admit. Was smoking cessation discussed for >3mins.? @ -No Was critical care preformed (if so, how long)? @ -No Were there social determinants of health that impacted care today? How? (Homelessness, low income, unemployed, alcoholism, drug addiction, transportation, low edu. Level, literacy, decrease access to med. care, [facility], rehab)? @ -No Was there de-escalation of care discussed even if they declined (Discuss DNR or withdrawal of care, Hospice)? DNR status @ -No What co-morbidities impacted this encounter? (DM, HTN, Smoking, COPD, CAD, Cancer, CVA, ARF, Chemo, Hep., AIDS, mental health diagnosis, sleep apnea, morbid obesity)? @ -[Current smoker Was patient admitted / discharged? Hospital course, mention meds given and route, prescriptions, significant lab abnormalities, going to OR and other pertinent info. @ -Ho 59-year-old male with 4 months of worsening abdominal pain and hematuria. Patient is very uncomfortable on exam with generalized abdominal tenderness. Workup reveals a mild leukocytosis, at 15, stable hemoglobin, urinalysis is positive both for RBCs and WBCs without bacteria. Urine culture is obtained. CT of the abdomen pelvis showing adenopathy and bladder wall thickening. Patient is very uncomfortable in the emergency department will be admitted for pain control and evaluation of bladder wall thickening, with lymphadenopathy. Undiagnosed new problem with uncertain prognosis? @ -[No Drug Therapy requiring intensive monitoring for toxicity (Heparin, Nitro, Insulin, Cardizem)? @ -No Were any procedures done? @ -No Diagnosis/symptom? @Intractable abdominal pain, lymphadenopathy, bladder wall thickening Acute, or Chronic, or Acute on Chronic? @ -Acute Uncomplicated (without systemic symptoms) or Complicated (systemic symptoms)? @ -Default Side effects of treatment? @ -No Exacerbation, Progression, or Severe Exacerbation? @ -No Poses a threat to life or bodily function? How? (Chest pain, [place], [place], pneumonia, PE, COPD, DKA, ARF, appy, cholecystitis, CVA, Diverticulitis, Homicidal, Suicidal, threat to staff... and all critical care pts) @Yes, concern for neoplasm (Paul Monte) - Lab Data Lab Results 04/03/24 04/03/24 04/03/24 Range/Units 19:00 19:00 19:00 WBC 14.9 H (3.8-10.6) k/uL RBC 4.83 (4.30-5.90) m/uL Hgb 13.6 (13.0-17.5) gm/dL Hct 43.1 (39.0-53.0) % MCV 89.1 (80.0-100.0) fL MCH 28.2 (25.0-35.0) pg MCHC 31.7 (31.0-37.0) g/dL RDW 13.6 (11.5-15.5) % Plt Count 500 H (150-450) k/uL MPV 6.1 Neutrophils % 71 % Lymphocytes % 21 % Monocytes % 4 % Eosinophils % 2 % Basophils % 1 % Neutrophils # 10.6 H (1.3-7.7) k/uL Lymphocytes # 3.1 (1.0-4.8) k/uL Monocytes # 0.6 (0-1.0) k/uL Eosinophils # 0.4 (0-0.7) k/uL Basophils # 0.1 (0-0.2) k/uL Sodium 138 (137-145) mmol/L Potassium 4.8 (3.5-5.1) mmol/L Chloride 103 (98-107) mmol/L Carbon Dioxide 25 (22-30) mmol/L Anion Gap 10 mmol/L BUN 23 H (9-20) mg/dL Creatinine 1.00 (0.66-1.25) mg/dL Est GFR (CKD-EPI)AfAm >90 (>60 ml/min/1.73 sqM) Est GFR (CKD-EPI)NonAf 81 (>60 ml/min/1.73 sqM) Glucose 93 (74-99) mg/dL Plasma Lactic Acid R[place] 1.6 (0.7-2.0) mmol/L Calcium 10.3 H (8.4-10.2) mg/dL Total Bilirubin 0.4 (0.2-1.3) mg/dL AST 17 (17-59) U/L ALT 10 (4-49) U/L Alkaline Phosphatase 104 (38-126) U/L Total Protein 7.6 (6.3-8.2) g/dL Albumin 4.1 (3.5-5.0) g/dL Amylase 60 (30-110) U/L Lipase 83 (23-300) U/L Urine Color Urine Appearance (Clear) Urine pH (5.0-8.0) Ur Specific [place] (1.001-1.035) Urine Protein (Negative) Urine Glucose (UA) (Negative) Urine Ketones (Negative) Urine Blood (Negative) Urine Nitrite (Negative) Urine Bilirubin (Negative) Urine Urobilinogen (<2.0) mg/dL Ur Leukocyte Esterase (Negative) Urine RBC (0-5) /hpf Urine WBC (0-5) /hpf Urine Mucus (None) /hpf 04/03/24 Range/Units 21:22 WBC (3.8-10.6) k/uL RBC (4.30-5.90) m/uL Hgb (13.0-17.5) gm/dL Hct (39.0-53.0) % MCV (80.0-100.0) fL MCH (25.0-35.0) pg MCHC (31.0-37.0) g/dL RDW (11.5-15.5) % Plt Count (150-450) k/uL MPV Neutrophils % % Lymphocytes % % Monocytes % % Eosinophils % % Basophils % % Neutrophils # (1.3-7.7) k/uL Lymphocytes # (1.0-4.8) k/uL Monocytes # (0-1.0) k/uL Eosinophils # (0-0.7) k/uL Basophils # (0-0.2) k/uL Sodium (137-145) mmol/L Potassium (3.5-5.1) mmol/L Chloride (98-107) mmol/L Carbon Dioxide (22-30) mmol/L Anion Gap mmol/L BUN (9-20) mg/dL Creatinine (0.66-1.25) mg/dL Est GFR (CKD-EPI)AfAm (>60 ml/min/1.73 sqM) Est GFR (CKD-EPI)NonAf (>60 ml/min/1.73 sqM) Glucose (74-99) mg/dL Plasma Lactic Acid [place] (0.7-2.0) mmol/L Calcium (8.4-10.2) mg/dL Total Bilirubin (0.2-1.3) mg/dL AST (17-59) U/L ALT (4-49) U/L Alkaline Phosphatase (38-126) U/L Total Protein (6.3-8.2) g/dL Albumin (3.5-5.0) g/dL Amylase (30-110) U/L Lipase (23-300) U/L Urine Color Light Red Urine Appearance Cloudy (Clear) Urine pH 6.0 (5.0-8.0) Ur Specific [place] 1.018 (1.001-1.035) Urine Protein 2+ H (Negative) Urine Glucose (UA) Negative (Negative) Urine Ketones Negative (Negative) Urine Blood Large H (Negative) Urine Nitrite Negative (Negative) Urine Bilirubin Negative (Negative) Urine Urobilinogen <2.0 (<2.0) mg/dL Ur Leukocyte Esterase Moderate H (Negative) Urine RBC >182 H (0-5) /hpf Urine WBC >182 H (0-5) /hpf Urine Mucus Many H (None) /hpf Disposition <Ray Robles - Last Filed: 04/03/24 16:22> Is patient prescribed a controlled substance at d/c from ED?: No Time of Disposition: 23:42 <Paul Monte - Last Filed: 04/03/24 23:42> Clinical Impression: Dehydration, Nausea & vomiting, Abdominal lymphadenopathy, Bladder wall thickening Disposition: ADMITTED IP TO THIS HOSP Referrals: Curtis Tipton DO [Primary Care Provider] - 1-2 days
[2024-04-03 19:10] LABS: Basophils # (A) 0.1 k/uL (0-0.2); Basophils % (A) 1 %; Eosinophils # (A) 0.4 k/uL (0-0.7); Eosinophils % (A) 2 %; HCT 43.1 % (39.0-53.0); HGB 13.6 gm/dL (13.0-17.5); Lymphocytes # (A) 3.1 k/uL (1.0-4.8); Lymphocytes % (A) 21 %; MCH 28.2 pg (25.0-35.0); MCHC 31.7 g/dL (31.0-37.0); MCV 89.1 fL (80.0-100.0); Mean Platelet Volume 6.1; Monocytes # (A) 0.6 k/uL (0-1.0); Monocytes % (A) 4 %; Neutrophils # (A) 10.6 k/uL (1.3-7.7); Neutrophils % (A) 71 %; Platelet Count 500 k/uL (150-450); RBC 4.83 m/uL (4.30-5.90); RDW 13.6 % (11.5-15.5); WBC 14.9 k/uL (3.8-10.6)
[2024-04-03 19:27] LABS: ALT 10 U/L (4-49); AST 17 U/L (17-59); African American GFR (CKD) >90 (>60 ml/min/1.73 sqM); Albumin 4.1 g/dL (3.5-5.0); Alkaline Phosphatase 104 U/L (38-126); Amylase 60 U/L (30-110); Anion Gap 10 mmol/L; Blood Urea Nitrogen 23 mg/dL (9-20); Calcium 10.3 mg/dL (8.4-10.2); Carbon Dioxide 25 mmol/L (22-30); Chloride 103 mmol/L (98-107); Glucose 93 mg/dL (74-99); Lipase 83 U/L (23-300); Non-African American GFR(CKD) 81 (>60 ml/min/1.73 sqM); Potassium 4.8 mmol/L (3.5-5.1); Sodium 138 mmol/L (137-145); Total Bilirubin 0.4 mg/dL (0.2-1.3); Total Protein 7.6 g/dL (6.3-8.2)
[2024-04-03 22:03] LABS: Appearance,Urine Cloudy (Clear); Bilirubin,Urine Negative (Negative); Blood,Urine Large (Negative); Color,Urine Light Red; Glucose,Urine (UA) Negative (Negative); Ketones,Urine Negative (Negative); Leukocyte Esterase,Urine Moderate (Negative); Mucus,Urine Many /hpf; Nitrite,Urine Negative (Negative); Protein,Urine 2+ (Negative); RBC,Urine >182 /hpf (0-5); Specific Gravity,Urine 1.018 (1.001-1.035); Urobilinogen,Urine <2.0 mg/dL (<2.0); WBC,Urine >182 /hpf (0-5)
--- NOTE | 2024-04-03 22:26 | CT ---
EXAMINATION TYPE: CT abdomen pelvis w con DATE OF EXAM: 04/03/2024 9:00 PM COMPARISON: None. CLINICAL INDICATION: Male, 59 years old with history of abdominal pain, Abdominal pain for 4 months, no NVD. Pain seems to migrate around abdomen. TECHNIQUE: Axial images were obtained from above the diaphragm to the pubic rami in the axial plane a t 5 mm thick sections. Reconstructed images are reviewed on the computer in the coronal plane. CONTRAST: 100 ml mL of Isovue 300. Study performed without Oral Contrast DLP: 1306.4 mGycm, Automated exposure control for dose reduction was used. FINDINGS: Limited CT sections are obtained the lung bases. The lung bases are clear. CT ABDOMEN: Extensive para-aortic and some retrocaval adenopathy is present. Additional workup for ly mphoma is recommended. Metastasis should be considered Liver: Normal Spleen: Normal. Small splenule is adjacent. Pancreas: Normal Adrenal glands: The adrenal glands are normal. Gallbladder: Normal Kidneys: No masses are evident. No hydronephrosis is present. Cortical renal cysts are present. De layed images were obtained through the kidneys, which remain unremarkable. Aorta: Vascular calcification is within the aorta. Inferior vena cava: Normal. CT PELVIS: Diverticuli sigmoid colon. Some mild diffuse wall thickening may be present on previous can be relate d to incomplete distention. Small bowel loops contain fluid. No obstruction is evident. Appendix: Normal as visualized. Urinary bladder: Wall irregularity is present along the inferior and dependent portions. Mild diffuse wall thickening and remaining urinary bladder. Additional workup neoplasm is recommended. Genitourinary structures: Prostate is prominent. Osseous structures: No suspicious lytic or sclerotic lesions. IMPRESSION: 1. Irregular wall thickening within urinary bladder. Workup for neoplasm is recommended. 2. Extensive periaortic adenopathy. Consider lymphoma and metastasis within the differential. 3. Prostate prominence. 4. Diverticulosis without acute diverticulitis. 5. Some mild diffuse wall thickening through the sigmoid colon is not excluded. [facility], , 04/03/2024 10:24 PM
[2024-04-03] MEDS: MORPHINE SULFATE 4 MG/ML SYRINGE IVP STA (22:46)
[2024-04-03] MEDS ORDERED: NALOXONE 0.4 MG/ML 1 ML VIAL IV PRN (23:37)
[2024-04-03] MEDS ORDERED: ACETAMINOPHEN TAB 325 MG TAB PO PRN (23:37)
[2024-04-04] MEDS: HYDROmorphone 1 MG/ML 1 ML SYRINGE IVP PRN (00:25)
[2024-04-04] MEDS: SODIUM CHLORIDE 0.9% 1,000 ML IV SCH (02:47)
[2024-04-04] MEDS: ONDANSETRON 4 MG/2 ML VIAL IVP PRN (07:49)
[2024-04-04 10:00] LABS: Basophils # (A) 0.1 k/uL (0-0.2); Basophils % (A) 0 %; Eosinophils # (A) 0.3 k/uL (0-0.7); Eosinophils % (A) 2 %; HCT 38.9 % (39.0-53.0); HGB 12.5 gm/dL (13.0-17.5); Lymphocytes # (A) 1.6 k/uL (1.0-4.8); Lymphocytes % (A) 10 %; MCH 28.6 pg (25.0-35.0); MCHC 32.3 g/dL (31.0-37.0); MCV 88.6 fL (80.0-100.0); Mean Platelet Volume 6.2; Monocytes # (A) 0.7 k/uL (0-1.0); Monocytes % (A) 4 %; Neutrophils # (A) 13.3 k/uL (1.3-7.7); Neutrophils % (A) 83 %; Platelet Count 427 k/uL (150-450); RBC 4.39 m/uL (4.30-5.90); RDW 13.6 % (11.5-15.5)
[2024-04-04 10:38] LABS: Ionized Calcium 5.2 mg/dL (4.5-5.3)
[2024-04-04] MEDS ORDERED: DICYCLOMINE 10 MG CAP PO PRN (12:37)
[2024-04-04] MEDS ORDERED: HYDROcodone/APAP 5-325MG 1 EACH TAB PO PRN (12:38)
[2024-04-04] MEDS ORDERED: DEXTROSE 50% SYRINGE 50 ML IVP PRN ×2 (13:36)
[2024-04-04] MEDS ORDERED: ALBUTEROL NEBULIZED 2.5 MG/3 ML INHALATION PRN (13:37)
--- NOTE | 2024-04-04 14:08 | P.HPIM ---
History of Present Illness H&P Date: 04/04/24 Chief Complaint: Abdominal pain Patient is a 59 year old male with past medical history of gastric ulcers, diabetes mellitus, hyperlipidemia, hypertension, LICHA on CPAP, osteoarthritis, tobacco dependence presented to the ED with abdominal pain. Patient states the pain started 4-5 months ago. The pain is in the umbilical region more to the left side. He mentions the pain has worsened in the past few days making him unable to do anything but sleep. Currently denies any changes in bowel habits, nausea, vomiting, hematochezia, melena. He mentions having a colonoscopy done about 10 years ago when a large colon mass was found that was unable to be removed via the colonoscope and he had to undergo laparoscopic right colectomy. At the time he also had to undergo laparoscopic umbilical hernia repair and a couple months later he had laparoscopic cholecystectomy. He hasn't had a colonoscopy since. However he does have hematuria and he endorses suprapubic pain while urinating along with increased frequency since 6-8 months. Moreover, he has a family history of prostatic cancer. He also reports back and shoulder pain for which he had an MRI done two weeks ago that also showed retroperitoneal lymphadenopathy. Denies fever, chills, shortness of breath, cough, chest pain, palpitations, dysuria, headache, slurred speech, numbness, tingling, dizziness, lightheadednes s. ED documentation reviewed. In the ED patient was treated with dilaudid, morphine, Zofran and 0.9 normal saline. Vitals on admission T 98.6 F, MD 105 bpm, RR 18, BP 111/81, O2 sat 99% on room air Abdomen and pelvis CT shows irregular wall thickening within urinary bladder, recommend neoplasm workup. Extensive fatou aortic adenopathy, consider lymphoma and metastasis in the differential. Prostate prominence. Diverticulosis without acute diverticulitis. Mild diffuse wall thickening through the sigmoid colon is not excluded Labs on admission show WBC 14.9, platelet 500, sodium 138, potassium 4.8, BUN 23, amylase 60, lipase 83, calcium 10.3 UA shows 2+ protein, large blood, moderate leukocyte esterase, more than 182 RBC and WBC, many mucus Review of systems: Pertinent positives and negatives as discussed in HPI, a complete review of systems was performed and all other systems are negative. Social history: Tobacco: Current smoker, 1 PPD Alcohol: Occasional Recreational drugs: Marijuana daily Travel: No recent travel history Sick contacts: None Physical examination: Vital signs reviewed General: nontoxic, no distress, appears at stated age, overweight Derm: warm, dry, intact Head: atraumatic, normocephalic, symmetric Eyes: EOMI, anicteric sclera Mouth: no lip lesion, mucus membranes moist Cardiovascular: S1 S2 reg, no murmur Lungs: diminished lung sounds Abdominal: soft, tender to palpation in the umbilical region Extremities: No cyanosis, clubbing, or pedal edema Neuro: Alert, Oriented, Gross neurological examination did not reveal any focal deficits. Psych: well appearing, appropriate affect Assessment/Plan: Patient is a 59 year old male with past medical history of COPD, diabetes mellitus, hyperlipidemia, hypertension, on CPAP, osteoarthritis presented to the ED with abdominal pain. He is found to have abdominal lymphadenopathy and is admitted for further workup for neoplasm. Active: #. Abdominal lymphadenoapthy #. Urinary bladder wall thickening #. Hematuria #. Leukocytosis -Abdomen and pelvis CT shows irregular wall thickening within urinary bladder, recommend neoplasm workup. Extensive fatou aortic adenopathy, consider lymphoma and metastasis in the differential. Prostate prominence. Diverticulosis without acute diverticulitis. Mild diffuse wall thickening through the sigmoid colon is not excluded -UA shows 2+ protein, large blood, moderate leukocyte esterase, more than 182 RBC and WBC, many mucus WBC 14.9 -Continue Acetaminophen 650 mg p.o. every 6 hours as needed, Dilaudid 0.5 mg IVP every 3 hours as needed (PS 4-6), Dilaudid 1 mg IVP every 3 hours as needed (PS 7-10), [place] 5-325 PO Q6HR PRN, Dicyclomine 10 mg PO TID PRN, Pyridium 100 mg PO TID PRN for pain management -Obtain TIFFANY, PSA and urine culture -Monitor CBC and BMP -Consult Oncology and Urology #. Acute hypoxic respiratory failure -Continue supplemental oxygen as needed -Albuterol 2.5 mg inhalation QID PRN -Obtain Chest X-ray #. Nausea and vomiting -Continue Zofran 4 mg IVP Q8HR PRN #. Hypercalcemia -Ca 10.3 -Obtain vitamin D 25-hydroxy, vitamin D 1, 25 dihydroxy, ionized calcium, parathyroid hormone, rheumatoid factor and repeat calcium Chronic: #. Diabetes mellitus #. Hypertension #. Hyperlipidemia #. Anxiety #. Tobacco dependence -Insulin sliding scale with ACHS blood glucose monitoring, Hold home glimepiride -Continue home meds [id number] p.o. daily, atorvastatin 80 mg p.o. at bedtime, Bupropion 150 mg PO daily F: 0.9 normal saline at 75 mL/h E: Replete as required N: Regular diet GI prophylaxis: Pantoprazole 40 mg p.o. daily The patient is admitted with an anticipated more than 2 midnight stay for evaluation of abdominal pain CODE STATUS: FULL CODE Discussed with: Patient Anticipated discharge place: Home Attestation I have seen and examined this patient with my resident , discussed the same with the resident/YAZAN, and agree with the dictator's assessment and plan as written Dr. Terrence pandya Past Medical History Past Medical History: COPD, Diabetes Mellitus, Hyperlipidemia, Hypertension, Osteoarthritis (OA), Renal Disease, Sleep Apnea/CPAP/BIPAP Additional Past Medical History / Comment(s): CPAP MACHINE , acute renal failure 2014- History of Any Multi-Drug Resistant Organisms: None Reported Past Surgical History: Bowel Resection, Cholecystectomy Additional Past Surgical History / Comment(s): Laparoscopic R colectomy. HAD FRONT TEETH PULLED UNDER ANESTHESIA, COLONOSCOPY Past Anesthesia/Blood Transfusion Reactions: No Reported Reaction Additional Past Anesthesia/Blood Transfusion Reaction / Comment(s): Pt has never received blood. Past Psychological History: Anxiety Past Alcohol Use History: Occasional Past Drug Use History: Marijuana - Past Family History Father Family Medical History: Diabetes Mellitus, Prostate Disorder, Renal Disease Additional Family Medical History / Comment(s): Father is 72 yrs old. Mother Family Medical History: Diabetes Mellitus Additional Family Medical History / Comment(s): Mother is 72 yrs old. She has a murmur. Pt does not know what type of blood disorder but it causes her to bruise easily. Medications and Allergies Home Medications Medication Instructions Recorded Confirmed Type buPROPion XL [Wellbutrin XL] 150 mg PO DAILY 05/10/15 04/04/24 History Atorvastatin [Lipitor] 80 mg PO HS 11/14/15 04/04/24 History Glimepiride [Amaryl] 2 mg PO BID #60 tab 11/19/15 04/04/24 Rx amLODIPine BES/OLMESARTAN MED 1 tab PO DAILY 04/04/24 04/04/24 History [amLODIPine BES/OLMESARTAN MED 10-40 mg] Allergies Allergy/AdvReac Type Severity Reaction Status Date / Time No Known Allergies Allergy Verified 04/04/24 09:00 Physical Exam Vitals: Vital Signs Temp Pulse Resp BP Pulse Ox 04/04/24 08:40 94 L 04/04/24 08:38 84 L 04/04/24 08:21 98.2 F 04/04/24 06:37 87 18 93/82 97 04/04/24 03:57 84 18 91/72 94 L 04/04/24 01:55 59 L 16 96/68 97 04/03/24 20:35 98.4 F 104 H 12 98/68 96 04/03/24 16:08 98.6 F 105 H 18 111/81 99 Intake and Output 04/03/24 04/04/24 04/04/24 22:59 06:59 14:59 Other: Weight 87.09 kg Results CBC & Chem 7: 04/05/24 02:55 04/05/24 02:55 Labs: Abnormal Lab Results - Last 24 Hours (Table) 04/03/24 04/03/24 04/03/24 Range/Units 19:00 19:00 21:22 WBC 14.9 H (3.8-10.6) k/uL Plt Count 500 H (150-450) k/uL Neutrophils # 10.6 H (1.3-7.7) k/uL BUN 23 H (9-20) mg/dL Calcium 10.3 H (8.4-10.2) mg/dL Urine Protein 2+ H (Negative) Urine Blood Large H (Negative) Ur Leukocyte Esterase Moderate H (Negative) Urine RBC >182 H (0-5) /hpf Urine WBC >182 H (0-5) /hpf Urine Mucus Many H (None) /hpf
--- NOTE | 2024-04-04 15:09 | P.GSCN ---
History of Present Illness Consult date: 04/04/24 Reason for Consult: Hematuria Requesting physician: Tristan E Sheet History of present illness: The patient is a 59-year-old white male admitted for evaluation of abdominal pain. The pain is suprapubic and periumbilical, and has been present for several months. He also reports gross painless hematuria for a duration of approximately 8 months. He states that he has passed some kidney stones, none recently. He denies any prior history of UTIs. He has smoked 1 pack of cigarettes daily for 40 years. Review of Systems - Constitutional Denies chills, Denies fever - Cardiovascular Reports high blood pressure - Gastrointestinal Reports abdominal pain, Reports diarrhea, Denies nausea, Denies vomiting - Genitourinary Reports hematuria, Denies dysuria, Denies flank pain Past Medical History Past Medical History: COPD, Diabetes Mellitus, Hyperlipidemia, Hypertension, Osteoarthritis (OA), Renal Disease, Sleep Apnea/CPAP/BIPAP Additional Past Medical History / Comment(s): CPAP MACHINE , acute renal failure 2014- History of Any Multi-Drug Resistant Organisms: None Reported Past Surgical History: Bowel Resection, Cholecystectomy Additional Past Surgical History / Comment(s): Laparoscopic R colectomy. HAD FRONT TEETH PULLED UNDER ANESTHESIA, COLONOSCOPY Past Anesthesia/Blood Transfusion Reactions: No Reported Reaction Additional Past Anesthesia/Blood Transfusion Reaction / Comm: Pt has never received blood. Past Psychological History: Anxiety Past Alcohol Use History: Occasional Past Drug Use History: Marijuana - Past Family History Father Family Medical History: Diabetes Mellitus, Prostate Disorder, Renal Disease Additional Family Medical History / Comment(s): Father is 72 yrs old. Mother Family Medical History: Diabetes Mellitus Additional Family Medical History / Comment(s): Mother is 72 yrs old. She has a murmur. Pt does not know what type of blood disorder but it causes her to bruise easily. Medications and Allergies Home Medications Medication Instructions Recorded Confirmed Type buPROPion XL [Wellbutrin XL] 150 mg PO DAILY 05/10/15 04/04/24 History Atorvastatin [Lipitor] 80 mg PO HS 11/14/15 04/04/24 History Glimepiride [Amaryl] 2 mg PO BID #60 tab 11/19/15 04/04/24 Rx amLODIPine BES/OLMESARTAN MED 1 tab PO DAILY 04/04/24 04/04/24 History [amLODIPine BES/OLMESARTAN MED 10-40 mg] Allergies Allergy/AdvReac Type Severity Reaction Status Date / Time No Known Allergies Allergy Verified 04/04/24 09:00 Surgical - Exam Vital Signs Temp Pulse Resp BP Pulse Ox 98.6 F 105 H 18 111/81 99 04/03/24 16:08 04/03/24 16:08 04/03/24 16:08 04/03/24 16:08 04/03/24 16:08 - General well developed, well nourished, moderate distress - Respiratory normal respiratory effort - Abdomen Soft, non-distended, no mass. Suprapubic tenderness is noted, without guarding or rebound. - Genitourinary normal penis with no external lesions, testicles non-tender - Psychiatric oriented to time, oriented to person, oriented to place, speech is normal, memory intact Results - Labs 04/04/24 09:47 04/03/24 19:00 Abnormal Lab Results - Last 24 Hours (Table) 04/03/24 04/03/24 04/03/24 Range/Units 19:00 19:00 21:22 WBC 14.9 H (3.8-10.6) k/uL Hgb (13.0-17.5) gm/dL Hct (39.0-53.0) % Plt Count 500 H (150-450) k/uL Neutrophils # 10.6 H (1.3-7.7) k/uL BUN 23 H (9-20) mg/dL Calcium 10.3 H (8.4-10.2) mg/dL Urine Protein 2+ H (Negative) Urine Blood Large H (Negative) Ur Leukocyte Esterase Moderate H (Negative) Urine RBC >182 H (0-5) /hpf Urine WBC >182 H (0-5) /hpf Urine Mucus Many H (None) /hpf 04/04/24 Range/Units 09:47 WBC 16.0 H (3.8-10.6) k/uL Hgb 12.5 L (13.0-17.5) gm/dL Hct 38.9 L (39.0-53.0) % Plt Count (150-450) k/uL Neutrophils # 13.3 H (1.3-7.7) k/uL BUN (9-20) mg/dL Calcium (8.4-10.2) mg/dL Urine Protein (Negative) Urine Blood (Negative) Ur Leukocyte Esterase (Negative) Urine RBC (0-5) /hpf Urine WBC (0-5) /hpf Urine Mucus (None) /hpf Diabetes panel 04/03/24 Range/Units 19:00 Sodium 138 (137-145) mmol/L Potassium 4.8 (3.5-5.1) mmol/L Chloride 103 (98-107) mmol/L Carbon Dioxide 25 (22-30) mmol/L BUN 23 H (9-20) mg/dL Creatinine 1.00 (0.66-1.25) mg/dL Glucose 93 (74-99) mg/dL Calcium 10.3 H (8.4-10.2) mg/dL AST 17 (17-59) U/L ALT 10 (4-49) U/L Alkaline Phosphatase 104 (38-126) U/L Total Protein 7.6 (6.3-8.2) g/dL Albumin 4.1 (3.5-5.0) g/dL Calcium panel 04/03/24 04/04/24 Range/Units 19:00 09:47 Calcium 10.3 H (8.4-10.2) mg/dL Ionized Calcium Megan 5.2 (4.5-5.3) mg/dL Albumin 4.1 (3.5-5.0) g/dL Pituitary panel 04/03/24 Range/Units 19:00 Sodium 138 (137-145) mmol/L Potassium 4.8 (3.5-5.1) mmol/L Chloride 103 (98-107) mmol/L Carbon Dioxide 25 (22-30) mmol/L BUN 23 H (9-20) mg/dL Creatinine 1.00 (0.66-1.25) mg/dL Glucose 93 (74-99) mg/dL Calcium 10.3 H (8.4-10.2) mg/dL Adrenal panel 04/03/24 Range/Units 19:00 Sodium 138 (137-145) mmol/L Potassium 4.8 (3.5-5.1) mmol/L Chloride 103 (98-107) mmol/L Carbon Dioxide 25 (22-30) mmol/L BUN 23 H (9-20) mg/dL Creatinine 1.00 (0.66-1.25) mg/dL Glucose 93 (74-99) mg/dL Calcium 10.3 H (8.4-10.2) mg/dL Total Bilirubin 0.4 (0.2-1.3) mg/dL AST 17 (17-59) U/L ALT 10 (4-49) U/L Alkaline Phosphatase 104 (38-126) U/L Total Protein 7.6 (6.3-8.2) g/dL Albumin 4.1 (3.5-5.0) g/dL - Imaging CT scan - abdomen: report reviewed, image reviewed Assessment and Plan (1) Gross hematuria Current Visit: Yes Status: Acute Code(s): R31.0 - GROSS HEMATURIA SNOMED Code(s): 278337750 (2) Abnormal radiologic findings on diagnostic imaging of renal pelvis, ureter, or bladder Current Visit: Yes Status: Acute Code(s): R93.41 - ABN RADLGC FIND ON DX IMAGING RENAL PELV, URETER, OR BLDDR SNOMED Code(s): 611556828 Plan: Review of the CT scan shows irregularity at the bladder base, suspicious for urothelial carcinoma. Para-aortic and retrocaval lymphadenopathy is also noted. This raises the possibility of metastatic urothelial carcinoma of the bladder. I have recommended that the patient undergo cystoscopy with possible bladder tumor resection for further evaluation, and I hope to be able to schedule this later in the week. Time with Patient: Greater than 30
[2024-04-04 15:24] LABS: Rheumatoid Factor, Qnt <15 IU/mL (0-15)
[2024-04-04] MEDS: INSULIN ASPART (NovoLOG) 100 UNIT/ML VIAL SQ SCH (17:45)
[2024-04-04 18:18] LABS: Glucose,Whole Blood 137 mg/dL (70-110)
[2024-04-04] MEDS: ATORVASTATIN 80 MG TAB PO SCH (20:09)
[2024-04-05 03:59] LABS: HCT 36.3 % (39.0-53.0); HGB 11.8 gm/dL (13.0-17.5); MCH 28.9 pg (25.0-35.0); MCHC 32.5 g/dL (31.0-37.0); MCV 89.1 fL (80.0-100.0); Mean Platelet Volume 6.5; Platelet Count 407 k/uL (150-450); RBC 4.08 m/uL (4.30-5.90); RDW 13.7 % (11.5-15.5); WBC 12.6 k/uL (3.8-10.6)
[2024-04-05 04:54] LABS: African American GFR (CKD) >90 (>60 ml/min/1.73 sqM); Anion Gap 10 mmol/L; Blood Urea Nitrogen 24 mg/dL (9-20); Calcium 9.4 mg/dL (8.4-10.2); Carbon Dioxide 24 mmol/L (22-30); Chloride 102 mmol/L (98-107); Glucose 86 mg/dL (74-99); Non-African American GFR(CKD) 89 (>60 ml/min/1.73 sqM); Potassium 4.7 mmol/L (3.5-5.1); Sodium 136 mmol/L (137-145)
[2024-04-05 06:12] LABS: Glucose,Whole Blood 97 mg/dL (70-110)
[2024-04-05] MEDS: PANTOPRAZOLE 40 MG TABLET PO SCH (06:48)
[2024-04-05] MEDS: buPROPion XL 150 MG TAB.ER.24H PO SCH (09:08)
[2024-04-05] MEDS: amLODIPine 10 MG TAB PO SCH (09:08)
--- NOTE | 2024-04-05 09:32 | XR ---
EXAMINATION TYPE: XR chest 1V portable DATE OF EXAM: 04/05/2024 5:43 AM COMPARISON: 02/23/2016 CLINICAL INDICATION: Male, 59 years old with history of shortness of breath, TECHNIQUE: XR chest 1V portable view(s) obtained. FINDINGS: The heart size is normal. The pulmonary vasculature is normal. There are linear opacities at the left diaphragm. Correlate for atelectasis. Developing pneumonia steven uld be considered. Follow-up can be performed as clinically indicated. IMPRESSION: 1. Developing left lower lobe infiltrate. Follow-up can be performed. [facility], Workstation: [id number], 04/05/2024 9:30 AM
[2024-04-05 11:47] LABS: Glucose,Whole Blood 142 mg/dL (70-110)
[2024-04-05] MEDS ORDERED: AZITHROMYCIN 500 MG in SODIUM CHLORIDE 0.9% 250 ML IVPB SCH (12:15)
--- NOTE | 2024-04-05 12:16 | P.PN ---
Subjective Progress Note Date: 04/05/24 Principal diagnosis: Hospital course: Patient is a 59 year old male with past medical history of gastric ulcers, diabetes mellitus, hyperlipidemia, hypertension, LICHA on CPAP, osteoarthritis, tobacco dependence presented to the ED with abdominal pain. Patient states the pain started 4-5 months ago. The pain is in the umbilical region more to the left side. He mentions the pain has worsened in the past few days making him unable to do anything but sleep. Currently denies any changes in bowel habits, nausea, vomiting, hematochezia, melena. He mentions having a colonoscopy done about 10 years ago when a large colon mass was found that was unable to be removed via the colonoscope and he had to undergo laparoscopic right colectomy. At the time he also had to undergo laparoscopic umbilical hernia repair and a couple months later he had laparoscopic cholecystectomy. He hasn't had a colonoscopy since. However he does have hematuria and he endorses suprapubic pain while urinating along with increased frequency since 6-8 months. Moreover, he has a family history of prostatic cancer. He also reports back and shoulder pain for which he had an MRI done two weeks ago that also showed retroperitoneal lymphadenopathy. Denies fever, chills, shortness of breath, cough, chest pain, palpitations, dysuria, headache, slurred speech, numbness, tingling, dizziness, lightheadedness. ED documentation reviewed. In the ED patient was treated with dilaudid, morphine, Zofran and 0.9 normal saline. Vitals on admission T 98.6 F, ND 105 bpm, RR 18, BP 111/81, O2 sat 99% on room air Abdomen and pelvis CT shows irregular wall thickening within urinary bladder, recommend neoplasm workup. Extensive fatou aortic adenopathy, consider lymphoma and metastasis in the differential. Prostate prominence. Diverticulosis without acute diverticulitis. Mild diffuse wall thickening through the sigmoid colon is not excluded Labs on admission show WBC 14.9, platelet 500, sodium 138, potassium 4.8, BUN 23, amylase 60, lipase 83, calcium 10.3 UA shows 2+ protein, large blood, moderate leukocyte esterase, more than 182 RBC and WBC, many mucus 04/05/24: Patient seen and examined today. He is currently on 2L oxygen via nasal cannula and saturating at 98%. He endorses back pain and dizziness with any movement, that is limiting his ability to ambulate. Labs today show WBC 12.6, hemoglobin 11.8, sodium of 136, BUN 24. Calcium 9.4, ionized calcium 5.2, lactate dehydrogenase 203, PTH 39.9, vitamin D 25-hydroxy 24.1, rheumatoid factor less than 15, TIFFANY screen negative. Urine culture shows no growth after 18 hours. Chest Xray shows developing left lower lobe infiltrate. Review of systems: Pertinent positives and negatives as discussed in HPI, a complete review of systems was performed and all other systems are negative. Vitals: Signs Reviewed Physical examination: Vital signs reviewed General: nontoxic, no distress, appears at stated age, overweight Derm: warm, dry, intact Head: atraumatic, normocephalic, symmetric Eyes: EOMI, anicteric sclera Mouth: no lip lesion, mucus membranes moist Cardiovascular: S1 S2 reg, no murmur Lungs: diminished lung sounds Abdominal: soft, tender to palpation in the umbilical region Extremities: No cyanosis, clubbing, or pedal edema Neuro: Alert, Oriented, Gross neurological examination did not reveal any focal deficits. Psych: well appearing, appropriate affect Assessment/Plan: Patient is a 59 year old male with past medical history of COPD, diabetes mellitus, hyperlipidemia, hypertension, on CPAP, osteoarthritis presented to the ED with abdominal pain. He is found to have abdominal lymphadenopathy and is admitted for further workup for neoplasm. Urology recommends cystoscopy with possible bladder tumor resection. Active: #. Abdominal lymphadenoapthy #. Urinary bladder wall thickening -Abdomen and pelvis CT shows irregular wall thickening within urinary bladder, recommend neoplasm workup. Extensive fatou aortic adenopathy, consider lymphoma and metastasis in the differential. Prostate prominence. Diverticulosis without acute diverticulitis. Mild diffuse wall thickening through the sigmoid colon is not excluded -Continue Acetaminophen 650 mg p.o. every 6 hours as needed, Dilaudid 0.5 mg IVP every 3 hours as needed (PS 4-6), Dilaudid 1 mg IVP every 3 hours as needed (PS 7-10), [place] 5-325 PO Q6HR PRN, Dicyclomine 10 mg PO TID PRN, Pyridium 100 mg PO TID PRN for pain management -TIFFANY screen negative -Pending PSA -Monitor CBC and BMP -Urology consulted, recommended cystoscopy with possible bladder tumor resection to be scheduled later in the week -Consult Oncology #. UTI #. Hematuria #. Leukocytosis -UA shows 2+ protein, large blood, moderate leukocyte esterase, more than 182 RBC and WBC, many mucus -WBC 14.9 -Urine culture shows no growth after 18 hours. -Continue IV Rocephin for 3 days, Day 2/3 #. Acute hypoxic respiratory failure #. Possible pneumonia -Chest Xray shows developing left lower lobe infiltrate -Continue supplemental oxygen as needed, currently on 2L oxygen via nasal cannula -Albuterol 2.5 mg inhalation QID PRN -Azithromycin 500 mg PO for 3 days -Symbicort added #. Nausea and vomiting -Continue Zofran 4 mg IVP Q8HR PRN #. Hypercalcemia #. Vitamin D deficiency -Ca 10.3 -Ionized calcium 5.2, lactate dehydrogenase 203, PTH 39.9, vitamin D 25-hydroxy 24.1, rheumatoid factor less than 15, repeat calcium 9.4 -Vitamin D supplementation Chronic: #. Diabetes mellitus #. Hypertension #. Hyperlipidemia #. Anxiety #. Tobacco dependence -Insulin sliding scale with ACHS blood glucose monitoring, Hold home glimepiride -Continue home meds [id number] p.o. daily, atorvastatin 80 mg p.o. at bedtime, Bupropion 150 mg PO daily F: 0.9 normal saline at 75 mL/h E: Replete as required N: Regular diet GI prophylaxis: Pantoprazole 40 mg p.o. daily Attestation I have seen and examined this patient with my resident , discussed the same with the resident/YAZAN, and agree with the dictator's assessment and plan as written Dr. Terrence pandya Objective - Vital Signs Vital signs: Vital Signs Temp 98.6 F 04/05/24 02:00 Pulse 83 04/05/24 02:00 Resp 20 04/05/24 02:00 BP 109/71 04/05/24 02:00 Pulse Ox 98 04/05/24 02:00 FiO2 Intake & Output 04/04/24 04/05/24 04/05/24 18:59 06:59 18:59 Intake Total 1305 Output Total 325 425 Balance -325 880 Weight 87.09 kg Intake: Intake, IV Titration 825 Amount Sodium Chloride 0.9% 1, 825 000 ml @ 75 mls/hr IV . [id number] HEMALATHA Rx#:[id number] Oral 480 Output: Urine 325 425 Other: Voiding Method Urinal - Labs CBC & Chem 7: 04/05/24 02:55 04/05/24 02:55 Labs: Abnormal Lab Results - Last 24 Hours (Table) 04/04/24 04/04/24 04/04/24 Range/Units 09:47 09:47 18:12 WBC 16.0 H (3.8-10.6) k/uL RBC (4.30-5.90) m/uL Hgb 12.5 L (13.0-17.5) gm/dL Hct 38.9 L (39.0-53.0) % Neutrophils # 13.3 H (1.3-7.7) k/uL Sodium (137-145) mmol/L BUN (9-20) mg/dL POC Glucose (mg/dL) 137 H (70-110) mg/dL Vitamin D 25-Hydroxy 24.1 L (30.0-100.0) ng/mL 04/05/24 04/05/24 Range/Units 02:55 02:55 WBC 12.6 H (3.8-10.6) k/uL RBC 4.08 L (4.30-5.90) m/uL Hgb 11.8 L (13.0-17.5) gm/dL Hct 36.3 L (39.0-53.0) % Neutrophils # (1.3-7.7) k/uL Sodium 136 L (137-145) mmol/L BUN 24 H (9-20) mg/dL POC Glucose (mg/dL) (70-110) mg/dL Vitamin D 25-Hydroxy (30.0-100.0) ng/mL
[2024-04-05] MEDS: AZITHROMYCIN 500 MG TAB PO SCH (13:27)
--- NOTE | 2024-04-05 13:58 | P.CONS ---
History of Present Illness - Reason for Consult Consult date: 04/04/24 LAD, bladder thickening Requesting physician: Paul Monte - Chief Complaint abd pain, hematuria - History of Present Illness Patient is a 59 year old male with a past medical history of diabetes mellitus, hyperlipidemia, hypertension, LICHA on CPAP, and nicotine dependence (50 pack years). Consult placed for lymphadenopathy and bladder wall thickening. Patient presented to the ER c/o abdominal pain. He states pain is periumbical and has been ongoing over the last couple months but began to worsen over the last couple days. Also reports ongoing hematuria >6 months, but does have history of frequent kidney stones and attributed hematuria to this. Reports last colonoscopy was approx 10 years ago due to obstruction and underwent colectomy. On admit CT abdomen pelvis with contrast showing irregular wall thickening within urinary bladder. Extensive periaortic adenopathy. Prostate prominence. Diverticulosis without acute diverticulitis and mild diffuse wall thickening through the sigmoid colon. Urology has been consulted, and plans for cystoscopy with possible bladder tumor resection later this week. Of note, patient had MRI of T-spine and L-spine on 03/20/2024 showing lymphadenopathy throughout the retroperitoneum, greatest measuring at 33 mm. Bony edema in T5, T6 and T7, favored to be degenerative. Labs reviewed, UA showing RBC > 182, WBC > 182 and moderate leukocyte esterase. Urine culture pending. WBC 16.0, hemoglobin 12.5, MCV 88.6, platelets 427,000. Creatinine 1.0, GFR > 90. Bilirubin 0.4, LFTs, lipase, amylase WNL. Calcium mildly elevated at 10.3, ionized calcium normal at 5.2. PTH 39.9. Review of Systems 10 point ROS is negative except as stated in the HPI Past Medical History Past Medical History: COPD, Diabetes Mellitus, Hyperlipidemia, Hypertension, Osteoarthritis (OA), Renal Disease, Sleep Apnea/CPAP/BIPAP Additional Past Medical History / Comment(s): CPAP MACHINE , acute renal failure 2014- History of Any Multi-Drug Resistant Organisms: None Reported Past Surgical History: Bowel Resection, Cholecystectomy Additional Past Surgical History / Comment(s): Laparoscopic R colectomy. HAD FRONT TEETH PULLED UNDER ANESTHESIA, COLONOSCOPY Past Anesthesia/Blood Transfusion Reactions: No Reported Reaction Additional Past Anesthesia/Blood Transfusion Reaction / Comm: Pt has never received blood. Past Psychological History: Anxiety Past Alcohol Use History: Occasional Past Drug Use History: Marijuana - Past Family History Father Family Medical History: Diabetes Mellitus, Prostate Disorder, Renal Disease Additional Family Medical History / Comment(s): Father is 72 yrs old. Mother Family Medical History: Diabetes Mellitus Additional Family Medical History / Comment(s): Mother is 72 yrs old. She has a murmur. Pt does not know what type of blood disorder but it causes her to bruise easily. Medications and Allergies Home Medications Medication Instructions Recorded Confirmed Type buPROPion XL [Wellbutrin XL] 150 mg PO DAILY 05/10/15 04/04/24 History Atorvastatin [Lipitor] 80 mg PO HS 11/14/15 04/04/24 History Glimepiride [Amaryl] 2 mg PO BID #60 tab 11/19/15 04/04/24 Rx amLODIPine BES/OLMESARTAN MED 1 tab PO DAILY 04/04/24 04/04/24 History [amLODIPine BES/OLMESARTAN MED 10-40 mg] Allergies Allergy/AdvReac Type Severity Reaction Status Date / Time No Known Allergies Allergy Verified 04/04/24 09:00 Physical Exam Vitals: Vital Signs Temp Pulse Resp BP Pulse Ox 04/04/24 11:12 89 18 110/79 97 04/04/24 08:40 94 L 04/04/24 08:38 84 L 04/04/24 08:21 98.2 F 04/04/24 06:37 87 18 93/82 97 04/04/24 03:57 84 18 91/72 94 L 04/04/24 01:55 59 L 16 96/68 97 04/03/24 20:35 98.4 F 104 H 12 98/68 96 04/03/24 16:08 98.6 F 105 H 18 111/81 99 Intake and Output 04/03/24 04/04/24 04/04/24 22:59 06:59 14:59 Other: Weight 87.09 kg - Constitutional General appearance: mild distress - EENT Eyes: anicteric sclerae, EOMI ENT: hearing grossly normal - Respiratory breathing is even and unlabored - Cardiovascular well perfused - Gastrointestinal General gastrointestinal: no distended, no hepatomegaly, soft, tenderness Localized gastrointestinal: tender: LLQ, epigastric periumbilical - Integumentary Integumentary: no cyanotic, no jaundiced - Psychiatric Psychiatric: A&O x's 3 Results CBC & Chem 7: 04/05/24 02:55 04/05/24 02:55 Labs: Abnormal Lab Results - Last 24 Hours (Table) 04/03/24 04/03/24 04/03/24 Range/Units 19:00 19:00 21:22 WBC 14.9 H (3.8-10.6) k/uL Hgb (13.0-17.5) gm/dL Hct (39.0-53.0) % Plt Count 500 H (150-450) k/uL Neutrophils # 10.6 H (1.3-7.7) k/uL BUN 23 H (9-20) mg/dL Calcium 10.3 H (8.4-10.2) mg/dL Urine Protein 2+ H (Negative) Urine Blood Large H (Negative) Ur Leukocyte Esterase Moderate H (Negative) Urine RBC >182 H (0-5) /hpf Urine WBC >182 H (0-5) /hpf Urine Mucus Many H (None) /hpf 04/04/24 Range/Units 09:47 WBC 16.0 H (3.8-10.6) k/uL Hgb 12.5 L (13.0-17.5) gm/dL Hct 38.9 L (39.0-53.0) % Plt Count (150-450) k/uL Neutrophils # 13.3 H (1.3-7.7) k/uL BUN (9-20) mg/dL Calcium (8.4-10.2) mg/dL Urine Protein (Negative) Urine Blood (Negative) Ur Leukocyte Esterase (Negative) Urine RBC (0-5) /hpf Urine WBC (0-5) /hpf Urine Mucus (None) /hpf Comments: MRI T/L spine reviewed CT scan - abdomen: report reviewed CT scan - pelvis: report reviewed Assessment and Plan (1) Abdominal lymphadenopathy Current Visit: Yes Status: Acute Priority: High Code(s): R59.0 - LOCALIZED ENLARGED LYMPH NODES SNOMED Code(s): 066134188 (2) Bladder wall thickening Current Visit: Yes Status: Acute Priority: High Code(s): N32.89 - OTHER SPECIFIED DISORDERS OF BLADDER SNOMED Code(s): 514415239 (3) Gross hematuria Current Visit: Yes Status: Acute Priority: High Code(s): R31.0 - GROSS HEMATURIA SNOMED Code(s): 694624314 (4) Anemia Current Visit: Yes Status: Acute Priority: Medium Code(s): D64.9 - ANEMIA, UNSPECIFIED SNOMED Code(s): 326756106 Plan: Bladder wall thickening, lymphadenopathy: Presented to the ER c/o abdominal pain. He states pain is periumbical and has been ongoing over the last couple months but began to worsen over the last couple days. Also reports ongoing hematuria approx 8 months. Last colonoscopy was approx 10 years ago due to obstruction and underwent colectomy at that time. History of 50 pack year smoking, denies ETOH abuse. Reports 5-10lb weight loss with associated diminished appetite -On admit CT abdomen pelvis with contrast showing irregular wall thickening within urinary bladder. Extensive periaortic adenopathy. Prostate prominence. Diverticulosis without acute diverticulitis and mild diffuse wall thickening through the sigmoid colon. -MRI of T-spine and L-spine obtained on 03/20/2024 showed lymphadenopathy throughout the retroperitoneum, greatest measuring at 33 mm. Bony edema in T5, T6 and T7, favored to be degenerative. -Urology has been consulted, and plans for cystoscopy with possible bladder tumor resection later this week. -UA showing RBC > 182, WBC > 182 and moderate leukocyte esterase. Urine culture pending. -Creatinine 1.0, GFR > 90. Bilirubin 0.4, LFTs/lipase/amylase WNL. Calcium mildly elevated at 10.3, ionized calcium normal at 5.2. PTH 39.9. LDH 203 -Last PSA was 1.9 on 10/26/22. Will repeat PSA Discussed findings and concerns for malignancy with patient and family. Agree with plan for cystoscopy. Will also need to obtain staging scans. Patient was agreeable with plan of care. All questions and concerns were addressed Normocytic anemia: -WBC 16.0, hemoglobin 12.5, MCV 88.6, platelets 427,000. Differential showing neutrophilia, otherwise no significant abnormalities -Upon trending labs, hgb typically in the 15-16 range, hgb was 15.5 on 09/20/23 -Anemia likely r/t ongoing hematuria. Anemia labs will be obtained to r/o nutritional deficiencies -Monitor CBC
--- NOTE | 2024-04-05 14:35 | P.PN ---
Subjective Progress Note Date: 04/05/24 Principal diagnosis: Hematuria Mr. Cowan's condition is unchanged. Specifically, he continues to report abdominal pain and gross hematuria. He denies dysuria. Objective - Vital Signs Vital signs: Vital Signs Temp 97.2 F L 04/05/24 07:49 Pulse 88 04/05/24 07:49 Resp 17 04/05/24 07:49 BP 102/67 04/05/24 07:49 Pulse Ox 97 04/05/24 07:49 FiO2 Intake & Output 04/04/24 04/05/24 04/05/24 18:59 06:59 18:59 Intake Total 1305 Output Total 325 425 Balance -325 880 Weight 87.09 kg Intake: Intake, IV Titration 825 Amount Sodium Chloride 0.9% 1, 825 000 ml @ 75 mls/hr IV . [id number] [facility] Rx#:[id number] Oral 480 Output: Urine 325 425 Other: Voiding Method Urinal Urinal - Constitutional General appearance: Present: average body habitus, cooperative, mild distress - Psychiatric Psychiatric: Present: A&O x's 3 - Labs CBC & Chem 7: 04/05/24 02:55 04/05/24 02:55 Labs: Abnormal Lab Results - Last 24 Hours (Table) 04/04/24 04/04/24 04/05/24 Range/Units 09:47 18:12 02:55 WBC 12.6 H (3.8-10.6) k/uL RBC 4.08 L (4.30-5.90) m/uL Hgb 11.8 L (13.0-17.5) gm/dL Hct 36.3 L (39.0-53.0) % Sodium (137-145) mmol/L BUN (9-20) mg/dL POC Glucose (mg/dL) 137 H (70-110) mg/dL Vitamin D 25-Hydroxy 24.1 L (30.0-100.0) ng/mL 04/05/24 04/05/24 Range/Units 02:55 11:45 WBC (3.8-10.6) k/uL RBC (4.30-5.90) m/uL Hgb (13.0-17.5) gm/dL Hct (39.0-53.0) % Sodium 136 L (137-145) mmol/L BUN 24 H (9-20) mg/dL POC Glucose (mg/dL) 142 H (70-110) mg/dL Vitamin D 25-Hydroxy (30.0-100.0) ng/mL Microbiology - Last 24 Hours (Table) 04/04/24 02:50 Urine Culture - Final Urine,Clean Catch Assessment and Plan (1) Gross hematuria Current Visit: Yes Status: Acute Priority: High Code(s): R31.0 - GROSS HEMATURIA SNOMED Code(s): 512413276 (2) Abnormal radiologic findings on diagnostic imaging of renal pelvis, ureter, or bladder Current Visit: Yes Status: Acute Code(s): R93.41 - ABN RADLGC FIND ON DX IMAGING RENAL PELV, URETER, OR BLDDR SNOMED Code(s): 280858693 Plan: I have advised the patient to undergo cystoscopy with possible bladder tumor resection. I have reviewed the rationale for the procedure, along with potential risks, with the patient, his , and his sister. I am hopeful that this can be performed tomorrow.
[2024-04-05 16:35] LABS: Glucose,Whole Blood 108 mg/dL (70-110)
[2024-04-05] MEDS: SYMBICORT 80-4.5 MCG INHALER INHALATION SCH (21:21)
[2024-04-05 21:48] LABS: Glucose,Whole Blood 141 mg/dL (70-110)
[2024-04-06] MEDS: HYDROmorphone 0.5 MG/0.5 ML SYRINGE IVP PRN (04:33)
[2024-04-06 06:42] LABS: Glucose,Whole Blood 100 mg/dL (70-110)
[2024-04-06 09:10] LABS: HCT 35.9 % (39.6-50.0); HGB 10.9 g/dL (13.0-17.0); MCH 27.5 pg (27.0-32.0); MCHC 30.4 g/dL (32.0-37.0); MCV 90.4 FL (80.0-97.0); Mean Platelet Volume 8.6 FL (9.5-12.2); NRBC Per 100 WBC 0 X 10*3/uL (0.00-0.01); Platelet Count 356 X 10*3/uL (140-440); RBC 3.97 X 10*6/uL (4.40-5.60); RDW 13.6 % (11.5-14.5); WBC 13.03 X 10*3/uL (4.50-10.00)
[2024-04-06 09:33] LABS: Glucose,Whole Blood 117 mg/dL (70-110)
[2024-04-06] MEDS: IV FLUID CONTINUATION 1,000 ML IV ONE ×2 (09:33→11:18)
[2024-04-06] MEDS: DEXAMETHASONE SOD PHOSPHATE 4 MG/ML 1 ML VIAL IVP STA (10:04)
[2024-04-06 10:07] LABS: % Iron Saturation 6.67 (15.00-50.00)
[2024-04-06] MEDS ORDERED: LIDOCAINE 1% INJ 10MG/ML (20 ML MDV) ONE (11:17)
[2024-04-06] MEDS ORDERED: SUCCINYLCHOLINE CHLORIDE 200 MG/10 ML VIAL IV ONE (11:17)
[2024-04-06] MEDS ORDERED: ROCURONIUM 10 MG/ML (5 ML VIAL) IV ONE (11:17)
[2024-04-06] MEDS ORDERED: GLYCOPYRROLATE 0.2 MG/ML 2 ML VIAL ONE (11:17)
[2024-04-06] MEDS ORDERED: fentaNYL (PF) 50 MCG/ML 2 ML AMP ONE (11:17)
[2024-04-06] MEDS ORDERED: NEOSTIGMINE 1 MG/ML 10 ML VIAL ONE (11:17)
[2024-04-06] MEDS ORDERED: MIDAZOLAM 2 MG/2 ML VIAL ONE (11:17)
[2024-04-06] MEDS ORDERED: PROPOFOL 10 MG/ML 20 ML VIAL IV ONE (11:17)
[2024-04-06] MEDS ORDERED: FUROSEMIDE 10 MG/ML 2 ML VIAL ONE (11:17)
[2024-04-06 11:20] LABS: Blood Urea Nitrogen 18.4 mg/dL (9.0-27.0); Calcium 9.1 mg/dL (8.7-10.3); Carbon Dioxide 24.3 mmol/L (21.6-31.8); Chloride 104 mmol/L (96-109); Glucose 89 mg/dL (70-110); Potassium 4.6 mmol/L (3.5-5.5); Sodium 137 mmol/L (135-145)
--- NOTE | 2024-04-06 11:42 | P.PN ---
Subjective Progress Note Date: 04/06/24 Principal diagnosis: Hospital course: Patient is a 59 year old male with past medical history of gastric ulcers, diabetes mellitus, hyperlipidemia, hypertension, LICHA on CPAP, osteoarthritis, tobacco dependence presented to the ED with abdominal pain. Patient states the pain started 4-5 months ago. The pain is in the umbilical region more to the left side. He mentions the pain has worsened in the past few days making him unable to do anything but sleep. Currently denies any changes in bowel habits, nausea, vomiting, hematochezia, melena. He mentions having a colonoscopy done about 10 years ago when a large colon mass was found that was unable to be removed via the colonoscope and he had to undergo laparoscopic right colectomy. At the time he also had to undergo laparoscopic umbilical hernia repair and a couple months later he had laparoscopic cholecystectomy. He hasn't had a colonoscopy since. However he does have hematuria and he endorses suprapubic pain while urinating along with increased frequency since 6-8 months. Moreover, he has a family history of prostatic cancer. He also reports back and shoulder pain for which he had an MRI done two weeks ago that also showed retroperitoneal lymphadenopathy. Denies fever, chills, shortness of breath, cough, chest pain, palpitations, dysuria, headache, slurred speech, numbness, tingling, dizziness, lightheadedness. ED documentation reviewed. In the ED patient was treated with dilaudid, morphine, Zofran and 0.9 normal saline. Vitals on admission T 98.6 F, TX 105 bpm, RR 18, BP 111/81, O2 sat 99% on room air Abdomen and pelvis CT shows irregular wall thickening within urinary bladder, recommend neoplasm workup. Extensive fatou aortic adenopathy, consider lymphoma and metastasis in the differential. Prostate prominence. Diverticulosis without acute diverticulitis. Mild diffuse wall thickening through the sigmoid colon is not excluded Labs on admission show WBC 14.9, platelet 500, sodium 138, potassium 4.8, BUN 23, amylase 60, lipase 83, calcium 10.3 UA shows 2+ protein, large blood, moderate leukocyte esterase, more than 182 RBC and WBC, many mucus 04/05/24: Patient seen and examined today. He is currently on 2L oxygen via nasal cannula and saturating at 98%. He endorses back pain and dizziness with any movement, that is limiting his ability to ambulate. Labs today show WBC 12.6, hemoglobin 11.8, sodium of 136, BUN 24. Calcium 9.4, ionized calcium 5.2, lactate dehydrogenase 203, PTH 39.9, vitamin D 25-hydroxy 24.1, rheumatoid factor less than 15, TIFFANY screen negative. Urine culture shows no growth after 18 hours. Chest Xray shows developing left lower lobe infiltrate. 04/06/24: Patient will undergo transurethral resection of bladder tumor today. He continues to be on 2 L of oxygen by nasal cannula and is saturating at 95%. A1c is 5.7. Labs today show WBC 13.03, hemoglobin 10.9. Review of systems: Pertinent positives and negatives as discussed in HPI, a complete review of systems was performed and all other systems are negative. Vitals: Signs Reviewed Physical examination: Vital signs reviewed General: nontoxic, no distress, appears at stated age, overweight Derm: warm, dry, intact Head: atraumatic, normocephalic, symmetric Eyes: EOMI, anicteric sclera Mouth: no lip lesion, mucus membranes moist Cardiovascular: S1 S2 reg, no murmur Lungs: diminished lung sounds Abdominal: soft, tender to palpation in the umbilical region Extremities: No cyanosis, clubbing, or pedal edema Neuro: Alert, Oriented, Gross neurological examination did not reveal any focal deficits. Psych: well appearing, appropriate affect Assessment/Plan: Patient is a 59 year old male with past medical history of COPD, diabetes mellitus, hyperlipidemia, hypertension, on CPAP, osteoarthritis presented to the ED with abdominal pain. He is found to have abdominal lymphadenopathy and is admitted for further workup for neoplasm. Urology recommends cystoscopy with possible bladder tumor resection tomorrow. Active: #. Abdominal lymphadenoapthy #. Urinary bladder tumor -Abdomen and pelvis CT shows irregular wall thickening within urinary bladder, recommend neoplasm workup. Extensive fatou aortic adenopathy, consider lymphoma and metastasis in the differential. Prostate prominence. Diverticulosis without acute diverticulitis. Mild diffuse wall thickening through the sigmoid colon is not excluded -Continue Acetaminophen 650 mg p.o. every 6 hours as needed, Dilaudid 0.5 mg IVP every 3 hours as needed (PS 4-6), Dilaudid 1 mg IVP every 3 hours as needed (PS 7-10), [place] 5-325 PO Q6HR PRN, Dicyclomine 10 mg PO TID PRN, Pyridium 100 mg PO TID PRN for pain management -TIFFANY screen negative -Pending PSA -Monitor CBC and BMP -Urology consulted, recommended cystoscopy with possible bladder tumor resection, TUR-BT today -Consult Oncology #. UTI #. Hematuria #. Leukocytosis -UA shows 2+ protein, large blood, moderate leukocyte esterase, more than 182 RBC and WBC, many mucus -WBC 14.9 -Urine culture shows no growth after 18 hours. -Continue IV Rocephin for 3 days, Day 06/05 #. Acute hypoxic respiratory failure #. Possible pneumonia -Chest Xray shows developing left lower lobe infiltrate -Continue supplemental oxygen as needed, currently on 2L oxygen via nasal ca nnula -Albuterol 2.5 mg inhalation QID PRN -Azithromycin 500 mg PO for 3 days, Day 05/08 -Continue Symbicort 2 puff BID #. Normocytic anemia, due to QUINCY and mitch anemia turia -Iron 18, TIBC 270, percent saturation 6.67, transferrin 193, ferritin 497, vitamin B12 760 -Venofer 125 mg daily added #. Nausea and vomiting -Continue Zofran 4 mg IVP Q8HR PRN #. Hypercalcemia, resolved #. Vitamin D deficiency -Ca 10.3 -Ionized calcium 5.2, lactate dehydrogenase 203, PTH 39.9, vitamin D 25-hydroxy 24.1, rheumatoid factor less than 15, repeat calcium 9.4 -Vitamin D supplementation Chronic: #. Diabetes mellitus #. Hypertension #. Hyperlipidemia #. Anxiety #. Tobacco dependence -Insulin sliding scale with ACHS blood glucose monitoring, Hold home glimepiride -Continue home meds [id number] p.o. daily, atorvastatin 80 mg p.o. at bedtime, Bupropion 150 mg PO daily F: 0.9 normal saline at 75 mL/h E: Replete as required N: NPO after midnight GI prophylaxis: Pantoprazole 40 mg p.o. daily Objective - Vital Signs Vital signs: Vital Signs Temp 98.3 F 04/06/24 00:55 Pulse 86 04/06/24 00:55 Resp 20 04/06/24 00:55 BP 127/86 04/06/24 00:55 Pulse Ox 95 04/06/24 00:55 FiO2 Intake & Output 04/05/24 04/06/24 04/06/24 18:59 06:59 18:59 Output Total 350 Balance -350 Output: Urine 350 Other: Voiding Method Urinal Urinal # Voids 1 3 - Labs CBC & Chem 7: 04/06/24 04:52 04/06/24 04:52 Labs: Abnormal Lab Results - Last 24 Hours (Table) 04/05/24 04/05/24 Range/Units 11:45 21:47 POC Glucose (mg/dL) 142 H 141 H (70-110) mg/dL Microbiology - Last 24 Hours (Table) 04/04/24 02:50 Urine Culture - Final Urine,Clean Catch
[2024-04-06] MEDS: LACTATED RINGERS 1,000 ML IV ONE (13:25)
[2024-04-06 14:03] LABS: Glucose,Whole Blood 145 mg/dL (70-110)
[2024-04-06] MEDS: CHOLECALCIFEROL 25 MCG (1000 IU) TABLET PO SCH (15:00)
[2024-04-06] MEDS: SODIUM FERRIC GLUCONAT-SUCROSE 125 MG in SODIUM CHLORIDE 0.9% 100 ML IVPB SCH (15:00)
[2024-04-06] MEDS: CALCIUM CARB-VIT D 500 MG-5 MCG TAB PO SCH (15:13)
[2024-04-06 17:06] LABS: Glucose,Whole Blood 157 mg/dL (70-110)
[2024-04-06 19:38] LABS: Glucose,Whole Blood 197 mg/dL (70-110)
[2024-04-07 06:23] LABS: Glucose,Whole Blood 177 mg/dL (70-110)
[2024-04-07 08:57] LABS: BUN/Creat Ratio 13.58 Ratio (12.00-20.00); Blood Urea Nitrogen 16.3 mg/dL (9.0-27.0); Carbon Dioxide 25.7 mmol/L (21.6-31.8); Chloride 104 mmol/L (96-109); Glucose 110 mg/dL (70-110); Potassium 4.4 mmol/L (3.5-5.5); Sodium 139 mmol/L (135-145)
[2024-04-07 09:05] LABS: HCT 33.9 % (39.6-50.0); HGB 10.8 g/dL (13.0-17.0); MCH 27.8 pg (27.0-32.0); MCHC 31.9 g/dL (32.0-37.0); MCV 87.4 FL (80.0-97.0); Mean Platelet Volume 8.3 FL (9.5-12.2); NRBC Per 100 WBC 0 X 10*3/uL (0.00-0.01); Platelet Count 333 X 10*3/uL (140-440); RBC 3.88 X 10*6/uL (4.40-5.60); RDW 13.7 % (11.5-14.5); WBC 14.04 X 10*3/uL (4.50-10.00)
[2024-04-07] MEDS ORDERED: HYDROcodone/APAP 5-325MG 1 EACH TAB PO PRN (11:36)
[2024-04-07] MEDS ORDERED: polyethylene glycoL 3350 17 GM POWD.PACK PO PRN (11:39)
[2024-04-07] MEDS ORDERED: RX INFO: IV CONTRAST WAS GIVEN 1 EACH MISC MISCELLANE PRN (11:42)
[2024-04-07 11:43] LABS: Glucose,Whole Blood 221 mg/dL (70-110)
[2024-04-07] MEDS: HYDROmorphone 0.5 MG/0.5 ML SYRINGE IVP PRN (11:44)
[2024-04-07] MEDS: DOCUSATE 100 MG CAP PO SCH (11:44)
[2024-04-07] MEDS ORDERED: polyethylene glycoL 3350 17 GM POWD.PACK PO SCH (11:45)
--- NOTE | 2024-04-07 11:58 | P.PN ---
Subjective Progress Note Date: 04/07/24 Principal diagnosis: Hospital course: Patient is a 59 year old male with past medical history of gastric ulcers, diabetes mellitus, hyperlipidemia, hypertension, LICHA on CPAP, osteoarthritis, tobacco dependence presented to the ED with abdominal pain. Patient states the pain started 4-5 months ago. The pain is in the umbilical region more to the left side. He mentions the pain has worsened in the past few days making him unable to do anything but sleep. Currently denies any changes in bowel habits, nausea, vomiting, hematochezia, melena. He mentions having a colonoscopy done about 10 years ago when a large colon mass was found that was unable to be removed via the colonoscope and he had to undergo laparoscopic right colectomy. At the time he also had to undergo laparoscopic umbilical hernia repair and a couple months later he had laparoscopic cholecystectomy. He hasn't had a colonoscopy since. However he does have hematuria and he endorses suprapubic pain while urinating along with increased frequency since 6-8 months. Moreover, he has a family history of prostatic cancer. He also reports back and shoulder pain for which he had an MRI done two weeks ago that also showed retroperitoneal lymphadenopathy. Denies fever, chills, shortness of breath, cough, chest pain, palpitations, dysuria, headache, slurred speech, numbness, tingling, dizziness, lightheadedness. ED documentation reviewed. In the ED patient was treated with dilaudid, morphine, Zofran and 0.9 normal saline. Vitals on admission T 98.6 F, OR 105 bpm, RR 18, BP 111/81, O2 sat 99% on room air Abdomen and pelvis CT shows irregular wall thickening within urinary bladder, recommend neoplasm workup. Extensive fatou aortic adenopathy, consider lymphoma and metastasis in the differential. Prostate prominence. Diverticulosis without acute diverticulitis. Mild diffuse wall thickening through the sigmoid colon is not excluded Labs on admission show WBC 14.9, platelet 500, sodium 138, potassium 4.8, BUN 23, amylase 60, lipase 83, calcium 10.3 UA shows 2+ protein, large blood, moderate leukocyte esterase, more than 182 RBC and WBC, many mucus 04/05/24: Patient seen and examined today. He is currently on 2L oxygen via nasal cannula and saturating at 98%. He endorses back pain and dizziness with any movement, that is limiting his ability to ambulate. Labs today show WBC 12.6, hemoglobin 11.8, sodium of 136, BUN 24. Calcium 9.4, ionized calcium 5.2, lactate dehydrogenase 203, PTH 39.9, vitamin D 25-hydroxy 24.1, rheumatoid factor less than 15, TIFFANY screen negative. Urine culture shows no growth after 18 hours. Chest Xray shows developing left lower lobe infiltrate. 04/06/24: Patient will undergo transurethral resection of bladder tumor today. He continues to be on 2 L of oxygen by nasal cannula and is saturating at 95%. A1c is 5.7. Labs today show WBC 13.03, hemoglobin 10.9. 04/07/24: Patient evaluated at bedside. He is currently saturating at 97% on 2L oxygen via nasal cannula. Patient tolerated the procedure well yesterday but currently he reports pain in the right side of umbilical region of abdomen. He has not had a bowel movement post procedure. Urinary catheter is draining red urine. Labs today show WBC 14.04, hemoglobin 10.8, sodium 139, BUN 16.3. Patient reports [place]udd[place] makes him sick. Review of systems: Pertinent positives and negatives as discussed in HPI, a complete review of systems was performed and all other systems are negative. Vitals: Signs Reviewed Physical examination: Vital signs reviewed General: nontoxic, no distress, appears at stated age, overweight Derm: warm, dry, intact Head: atraumatic, normocephalic, symmetric Eyes: EOMI, anicteric sclera Mouth: no lip lesion, mucus membranes moist Cardiovascular: S1 S2 reg, no murmur Lungs: diminished lung sounds Abdominal: soft, tender to palpation in the umbilical region Extremities: No cyanosis, clubbing, or pedal edema Neuro: Alert, Oriented, Gross neurological examination did not reveal any focal deficits. Psych: well appearing, appropriate affect Assessment/Plan: Patient is a 59 year old male with past medical history of COPD, diabetes mellitus, hyperlipidemia, hypertension, on CPAP, osteoarthritis presented to the ED with abdominal pain. He is found to have abdominal lymphadenopathy and is admitted for further workup for neoplasm. Urology recommends cystoscopy with possible bladder tumor resection tomorrow. Active: #. Abdominal lymphadenoapthy #. Urinary bladder tumor, S/p transurethral resection of bladder tumor -Abdomen and pelvis CT shows irregular wall thickening within urinary bladder, recommend neoplasm workup. Extensive fatuo aortic adenopathy, consider lymphoma and metastasis in the differential. Prostate prominence. Diverticulosis without acute diverticulitis. Mild diffuse wall thickening through the sigmoid colon is not excluded -Continue Acetaminophen 650 mg p.o. every 6 hours as needed, Dilaudid 0.5 mg IVP every 4 hours as needed (PS 4-6), Dilaudid 1 mg IVP every 4 hours as needed (PS 7-10), [place] 5-325 PO Q4HR PRN, Dicyclomine 10 mg PO TID PRN, Pyridium 100 mg PO TID PRN, Oxycodone 5 mg Q6HR PRN for pain management -TIFFANY screen negative -Pending PSA -Monitor CBC and BMP -Urology and Oncology following #. UTI #. Hematuria #. Leukocytosis -UA shows 2+ protein, large blood, moderate leukocyte esterase, more than 182 RBC and WBC, many mucus -WBC 14.9 -Urine culture shows no growth after 18 hours. -Given IV Rocephin 2gm for 3 days #. Acute hypoxic respiratory failure #. Possible pneumonia -Chest Xray shows developing left lower lobe infiltrate -Continue supplemental oxygen as needed, currently on 2L oxygen via nasal cannula -Albuterol 2.5 mg inhalation QID PRN -Azithromycin 500 mg PO for 3 days, Day 3/3 -Continue Symbicort 2 puff BID -CT Chest with contrast ordered #. Normocytic anemia, due to QUINCY and mitch anemia turia -Iron 18, TIBC 270, percent saturation 6.67, transferrin 193, ferritin 497, vitamin B12 760 -Venofer 125 mg daily added #. Nausea and vomiting -Continue Zofran 4 mg IVP Q8HR PRN #. Hypercalcemia, resolved #. Vitamin D deficiency -Ca 10.3 -Ionized calcium 5.2, lactate dehydrogenase 203, PTH 39.9, vitamin D 25-hydroxy 24.1, rheumatoid factor less than 15, repeat calcium 9.4 -Vitamin D supplementation #. Constipation -Docusate 100 mg PO BID -Miralax 17 gm PO Daily PRN Chronic: #. Diabetes mellitus #. Hypertension #. Hyperlipidemia #. Anxiety #. Tobacco dependence -Insulin sliding scale with ACHS blood glucose monitoring, Hold home glimepiride -Continue home meds [id number] p.o. daily, atorvastatin 80 mg p.o. at bedtime, Bupropion 150 mg PO daily F: 0.9 normal saline at 75 mL/h E: Replete as required N: Regular diet GI prophylaxis: Pantoprazole 40 mg p.o. daily Attestation I have seen and examined this patient with my resident , discussed the same with the resident/YAZAN, and agree with the dictator's assessment and plan as written Dr. Terrence pandya Objective - Vital Signs Vital signs: Vital Signs Temp 97.8 F 04/07/24 08:00 Pulse 68 04/07/24 08:00 Resp 18 04/07/24 08:00 BP 109/67 04/07/24 08:00 Pulse Ox 97 04/07/24 08:00 FiO2 Intake & Output 04/06/24 04/07/24 04/07/24 18:59 06:59 18:59 Intake Total 2000 480 Output Total 1350 1350 Balance 650 -870 Intake: IV 2000 Oral 480 Output: Urine 1300 1350 Estimated Blood Loss 50 Other: Voiding Method Urinal Urinal - Labs CBC & Chem 7: 04/07/24 05:18 04/07/24 05:18 Labs: Abnormal Lab Results - Last 24 Hours (Table) 04/04/24 04/05/24 04/06/24 Range/Units 11:08 15:07 04:52 WBC 13.03 H (4.50-10.00) X 10*3/uL RBC 3.97 L (4.40-5.60) X 10*6/uL Hgb 10.9 L (13.0-17.0) g/dL Hct 35.9 L (39.6-50.0) % MCHC 30.4 L (32.0-37.0) g/dL MPV 8.6 L (9.5-12.2) FL BUN/Creatinine Ratio (12.00-20.00) Ratio POC Glucose (mg/dL) (70-110) mg/dL Iron 18 L (65-175) UG/DL % Saturation 6.67 L (15.00-50.00) Transferrin 193.0 L (204.0-354.0) mg/dL Ferritin 597.0 H (22.0-322.0) ng/mL Total PSA 4.3 H (<=4.0) ng/mL 04/06/24 04/06/24 04/06/24 Range/Units 04:52 09:30 14:01 WBC (4.50-10.00) X 10*3/uL RBC (4.40-5.60) X 10*6/uL Hgb (13.0-17.0) g/dL Hct (39.6-50.0) % MCHC (32.0-37.0) g/dL MPV (9.5-12.2) FL BUN/Creatinine Ratio 23.00 H (12.00-20.00) Ratio POC Glucose (mg/dL) 117 H 145 H (70-110) mg/dL Iron (65-175) UG/DL % Saturation (15.00-50.00) Transferrin (204.0-354.0) mg/dL Ferritin (22.0-322.0) ng/mL Total PSA (<=4.0) ng/mL 04/06/24 04/06/24 04/07/24 Range/Units 17:04 19:37 06:22 WBC (4.50-10.00) X 10*3/uL RBC (4.40-5.60) X 10*6/uL Hgb (13.0-17.0) g/dL Hct (39.6-50.0) % MCHC (32.0-37.0) g/dL MPV (9.5-12.2) FL BUN/Creatinine Ratio (12.00-20.00) Ratio POC Glucose (mg/dL) 157 H 197 H 177 H (70-110) mg/dL Iron (65-175) UG/DL % Saturation (15.00-50.00) Transferrin (204.0-354.0) mg/dL Ferritin (22.0-322.0) ng/mL Total PSA (<=4.0) ng/mL
[2024-04-07] MEDS: PHENAZOPYRIDINE 100 MG TAB PO PRN (12:32)
--- NOTE | 2024-04-07 13:04 | P.PN ---
Subjective Progress Note Date: 04/07/24 Principal diagnosis: Hematuria due to multifocal bladder tumors Mr. Cowan presented with a long history of gross hematuria. Cystoscopy confirmed the presence of multiple bladder tumors, some of which appear to be muscle invasive. He underwent bladder tumor resection in April 06, 2024 but the resection was incomplete given the volume of disease. Objective - Vital Signs Vital signs: Vital Signs Temp 98.9 F 04/07/24 01:19 Pulse 72 04/07/24 01:19 Resp 20 04/07/24 01:19 BP 105/74 04/07/24 01:19 Pulse Ox 96 04/07/24 01:19 FiO2 Intake & Output 04/06/24 04/07/24 04/07/24 18:59 06:59 18:59 Intake Total 2000 480 Output Total 1350 1350 Balance 650 -870 Intake: IV 2000 Oral 480 Output: Urine 1300 1350 Estimated Blood Loss 50 Other: Voiding Method Urinal Urinal - Constitutional General appearance: Present: average body habitus, mild distress - Gastrointestinal Gastrointestinal Comment(s): Soft, tender, no guarding or rebound. No distention. - Genitourinary Genitourinary Comment(s): Street catheter is draining urine with mild to moderate hematuria, without clots. - Psychiatric Psychiatric: Present: A&O x's 3 - Labs CBC & Chem 7: 04/07/24 05:18 04/07/24 05:18 Labs: Abnormal Lab Results - Last 24 Hours (Table) 04/04/24 04/05/24 04/06/24 Range/Units 11:08 15:07 04:52 WBC 13.03 H (4.50-10.00) X 10*3/uL RBC 3.97 L (4.40-5.60) X 10*6/uL Hgb 10.9 L (13.0-17.0) g/dL Hct 35.9 L (39.6-50.0) % MCHC 30.4 L (32.0-37.0) g/dL MPV 8.6 L (9.5-12.2) FL BUN/Creatinine Ratio (12.00-20.00) Ratio POC Glucose (mg/dL) (70-110) mg/dL Iron 18 L (65-175) UG/DL % Saturation 6.67 L (15.00-50.00) Transferrin 193.0 L (204.0-354.0) mg/dL Ferritin 597.0 H (22.0-322.0) ng/mL Total PSA 4.3 H (<=4.0) ng/mL 04/06/24 04/06/24 04/06/24 Range/Units 04:52 09:30 14:01 WBC (4.50-10.00) X 10*3/uL RBC (4.40-5.60) X 10*6/uL Hgb (13.0-17.0) g/dL Hct (39.6-50.0) % MCHC (32.0-37.0) g/dL MPV (9.5-12.2) FL BUN/Creatinine Ratio 23.00 H (12.00-20.00) Ratio POC Glucose (mg/dL) 117 H 145 H (70-110) mg/dL Iron (65-175) UG/DL % Saturation (15.00-50.00) Transferrin (204.0-354.0) mg/dL Ferritin (22.0-322.0) ng/mL Total PSA (<=4.0) ng/mL 04/06/24 04/06/24 04/07/24 Range/Units 17:04 19:37 06:22 WBC (4.50-10.00) X 10*3/uL RBC (4.40-5.60) X 10*6/uL Hgb (13.0-17.0) g/dL Hct (39.6-50.0) % MCHC (32.0-37.0) g/dL MPV (9.5-12.2) FL BUN/Creatinine Ratio (12.00-20.00) Ratio POC Glucose (mg/dL) 157 H 197 H 177 H (70-110) mg/dL Iron (65-175) UG/DL % Saturation (15.00-50.00) Transferrin (204.0-354.0) mg/dL Ferritin (22.0-322.0) ng/mL Total PSA (<=4.0) ng/mL Assessment and Plan (1) Gross hematuria Current Visit: Yes Status: Acute Priority: High Code(s): R31.0 - GROSS HEM ATURIA SNOMED Code(s): 624418622 (2) Abnormal radiologic findings on diagnostic imaging of renal pelvis, ureter, or bladder Current Visit: Yes Status: Acute Code(s): R93.41 - ABN RADLGC FIND ON DX IMAGING RENAL PELV, URETER, OR BLDDR SNOMED Code(s): 864934451 Plan: Mr. Fuller underwent bladder tumor resection in April 06, 2024. 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 I believe his abdominal pain is due to the retroperitoneal adenopathy. He may be discharged home with the Street catheter from a urologic perspective, but pain control will need to be addressed.
[2024-04-07] MEDS: HYDROmorphone 0.5 MG/0.5 ML SYRINGE IVP STA (13:26)
--- NOTE | 2024-04-07 15:43 | P.OP ---
Date of Procedure: 04/06/24 Preoperative Diagnosis: Bladder Tumors Postoperative Diagnosis: Same Procedure(s) Performed: Cystoscopy, TURBT (Large) Anesthesia: PAT Surgeon: Johnny Cuello Estimated Blood Loss (ml): 50 IV fluids (ml): 1,200 Condition: stable Disposition: PACU Indications for Procedure: The patient is a 59-year-old white male admitted for evaluation of abdominal pain. The pain is suprapubic and periumbilical, and has been present for several months. He also reports gross painless hematuria for a duration of approximately 8 months. He states that he has passed some kidney stones, none recently. He denies any prior history of UTIs. He has smoked 1 pack of cigarettes daily for 40 years. Operative Findings: Multiple tumors seen throughout the bladder, involving primarily the bladder dome, posterior bladder wall, left lateral bladder wall, and right lateral bladder wall. The tumors on the right posterolateral bladder wall were sessile and likely muscle invasive. Description of Procedure: The patient was taken in the operating room and placed in the dorsal lithotomy position, with his legs supported in Carmine stirrups. The external genitalia was prepped and draped sterilely. 30 degree lens was used to introduce the [address] cystoscopic sheath through the urethra and into the bladder under direct vision. Multiple tumors were seen within the bladder. The cystoscope was removed. The [place] urethrotome was used to incise the urethra to 26 Turkish. The 25-Turkish [facility] resectoscope sheath was introduced into the bladder. The bladder was inspected. The left ureteral orifice was identified and appeared normal. The right ureteral orifice could not be identified. Multiple tumors were seen at the bladder dome and posterior bladder wall. Tumors were seen on the left lateral bladder wall and trigone, though the left ureteral orifice was spared. Extensive tumors overlie the right posterolateral bladder wall, obscuring the right ureteral orifice. These tumors had a sessile appearance. The prostatic urethra showed evidence of by lobar enlargement. No urothelial changes were seen within the prostatic urethra. Using the bipolar cutting loop, the tumors were resected down to the muscle. The resection was very extensive, involving much of the bladder. In the course of the resection of the right bladder trigone, the right ureteral orifice was identified and appeared patent. The resected tissue was saved and sent for pathologic examination. It was not possible to resect all of the tumors. The resection beds were fulgurated, attaining good hemostasis. Care was taken not to cauterize the area surrounding the right ureteral orifice. At no point was there a concern of bladder perforation. The abdomen remained soft and nondistended throughout the procedure. At the end of the procedure, Lasix 10 mg was given intravenously. A [address] catheter was inserted. The return was light pink in color. The patient tolerated the procedure well and was taken to the recovery room in stable condition.
--- NOTE | 2024-04-07 15:45 | CT ---
EXAMINATION TYPE: CT ChestAbdPelvis w con DATE OF EXAM: 04/07/2024 3:30 PM COMPARISON: 04/03/2024 CLINICAL INDICATION: Male, 59 years old with history of shortness of breath; PHH, SOB, Blood in urine . Technique: CT ChestAbdPelvis w con; Multiple axial images were obtained. Two-dimensional coronal and sagittal reconstructions were obtained. Contrast used:100 ml mL of Isovue 300 with IV Contrast, (None if empty) Oral contrast used: without Oral Contrast CT DLP: 1416.2 mGycm, Automated exposure control for dose reduction was used. Findings: CHEST: LUNGS/ PLEURA: Mild suspected atelectasis changes in the lung bases left greater than right. No focal consolidation, pneumothorax or pleural effusion. AIRWAY: Patent and unremarkable. HEART: Size within normal limits. MEDIASTINUM: No gross evidence of adenopathy. VASCULATURE: No aortic aneurysm. MUSCULOSKELETAL: No acute osseous abnormalities. SOFT TISSUES/LYMPH NODES: Unremarkable. LOWER NECK: No significant findings. ABDOMEN: ABDOMEN LIVER: Unremarkable GALLBLADDER AND BILE DUCTS: Unremarkable. PANCREAS: Unremarkable. SPLEEN: Unremarkable. ADRENAL GLANDS: Unremarkable. KIDNEYS AND URETERS: No evidence of hydronephrosis or renal calculus. The ureters are unremarkable. M oderate mild left hydronephrosis possibly secondary to distal ureter/bladder outlet obstruction. Mult iple distal right renal calculi in the ureter 1 similar prior measuring 5 and another near the ureter orifice measuring up to 3 mm. No left renal calculi. PELVIS BLADDER: Street catheter in place with high density material in the bladder lumen. Urinary bladder dec ompression with circumferential wall thickening. REPRODUCTIVE: Prostate is enlarged in size measuring 5.2 cm in transverse dimension. ABDOMEN & PELVIS STOMACH AND BOWEL: No evidence of bowel obstruction. Scattered colonic diverticula. PERITONEUM/RETROPERITONEUM: No evidence of pneumoperitoneum or free fluid. VASCULATURE: No evidence of aortic aneurysm. MUSCULOSKELETAL: No acute osseous abnormalities. Moderate disc degeneration changes are present throu ghout the thoracolumbar spine. Grade 1 anterolisthesis of L5 on S1 with bilateral spondylolysis. LYMPH NODES: Conglomerate lymphadenopathy throughout the retroperitoneum as seen on prior,r lymph nod es Extends down into the bilateral common iliac and external iliac artery chains. SOFT TISSUE/ABDOMINAL WALL: Fat-containing umbilical hernia. IMPRESSION: 1. Moderate right and mild left hydronephrosis possibly secondary to debris in the urinary bladder. There remains calculi in the distal right ureter now 2 discrete calculi are visualized. Correlate for ascending infection. 2. Street catheter in place with high density material in the bladder lumen. And bladder wall thicken ing and nondistended bladder correlate with urinalysis for blood products and cystitis. Conglomerate lymphadenopathy throughout the retroperitoneum as seen on prior. Correlate for malignancy/lymphoma 3. No evidence for acute process within the lungs there is some mild atelectasis changes in the lung bases. Correlate for superimposed infection. 4. Prostatomegaly, correlate with serum PSA. 5. Grade 1 anterolisthesis of L5 on S1 with bilateral spondylolysis. [facility], , 04/07/2024 3:42 PM
[2024-04-07] MEDS: HYDROmorphone 1 MG/ML 1 ML SYRINGE IVP PRN (15:46)
[2024-04-07 16:28] LABS: Glucose,Whole Blood 141 mg/dL (70-110)
--- NOTE | 2024-04-07 19:31 | P.PN ---
Subjective Progress Note Date: 04/07/24 At today's visit, pt reporting significant worsening of right sided abd pain since this morning. Denies n/v. STAT CT abd/pelvis ordered. Street in placed, with bloody urine output. S/p cystoscopy with bladder tumor resection. Hgb stable, 10.8 today, plt 333, WBC 14.0, creatinine 1.2, GFR 69. Pt afebrile Objective - Vital Signs Vital signs: Vital Signs Temp 97.3 F L 04/07/24 14:00 Pulse 63 04/07/24 14:00 Resp 18 04/07/24 14:00 BP 126/82 04/07/24 14:00 Pulse Ox 93 L 04/07/24 14:00 FiO2 Intake & Output 04/06/24 04/07/24 04/07/24 18:59 06:59 18:59 Intake Total 2000 480 Output Total 1350 1350 Balance 650 -870 Intake: IV 2000 Oral 480 Output: Urine 1300 1350 Estimated Blood Loss 50 Other: Voiding Method Urinal Urinal - Constitutional General appearance: Present: severe distress - EENT Eyes: Present: anicteric sclerae, EOMI ENT: Present: hearing grossly normal - Respiratory Details: hyperventilating, r/t acute pain - Cardiovascular Details: skin warm and dry - Gastrointestinal General gastrointestinal: Present: soft, tenderness Localized gastrointestinal: tender: RUQ, RLQ - Integumentary Integumentary: Absent: cyanotic - Psychiatric Psychiatric: Present: A&O x's 3 - Labs CBC & Chem 7: 04/07/24 05:18 04/07/24 05:18 Labs: Abnormal Lab Results - Last 24 Hours (Table) 04/06/24 04/06/24 04/07/24 Range/Units 17:04 19:37 05:18 WBC 14.04 H (4.50-10.00) X 10*3/uL RBC 3.88 L (4.40-5.60) X 10*6/uL Hgb 10.8 L (13.0-17.0) g/dL Hct 33.9 L (39.6-50.0) % MCHC 31.9 L (32.0-37.0) g/dL MPV 8.3 L (9.5-12.2) FL POC Glucose (mg/dL) 157 H 197 H (70-110) mg/dL 04/07/24 04/07/24 Range/Units 06:22 11:42 WBC (4.50-10.00) X 10*3/uL RBC (4.40-5.60) X 10*6/uL Hgb (13.0-17.0) g/dL Hct (39.6-50.0) % MCHC (32.0-37.0) g/dL MPV (9.5-12.2) FL POC Glucose (mg/dL) 177 H 221 H (70-110) mg/dL Assessment and Plan (1) Abdominal lymphadenopathy Current Visit: Yes Status: Acute Priority: High Code(s): R59.0 - LOCALIZED ENLARGED LYMPH NODES SNOMED Code(s): 981436641 (2) Bladder wall thickening Current Visit: Yes Status: Acute Priority: High Code(s): N32.89 - OTHER SPECIFIED DISORDERS OF BLADDER SNOMED Code(s): 289744114 (3) Gross hematuria Current Visit: Yes Status: Acute Priority: High Code(s): R31.0 - GROSS HEMATURIA SNOMED Code(s): 051213699 (4) Anemia Current Visit: Yes Status: Acute Priority: Medium Code(s): D64.9 - ANEMIA, UNSPECIFIED SNOMED Code(s): 375269466 Plan: Bladder wall thickening, lymphadenopathy: Presented to the ER c/o abdominal pain. He states pain is periumbical and has b een ongoing over the last couple months but began to worsen over the last couple days. Also reports ongoing hematuria approx 8 months. Last colonoscopy was approx 10 years ago due to obstruction and underwent colectomy at that time. History of 50 pack year smoking, denies ETOH abuse. Reports 5-10lb weight loss with associated diminished appetite -On admit CT abdomen pelvis with contrast showing irregular wall thickening within urinary bladder. Extensive periaortic adenopathy. Prostate prominence. Diverticulosis without acute diverticulitis and mild diffuse wall thickening through the sigmoid colon. -MRI of T-spine and L-spine obtained on 03/20/2024 showed lymphadenopathy throughout the retroperitoneum, greatest measuring at 33 mm. Bony edema in T5, T6 and T7, favored to be degenerative. -UA showing RBC > 182, WBC > 182 and moderate leukocyte esterase. Urine culture negative -Creatinine 1.0, GFR > 90. Bilirubin 0.4, LFTs/lipase/amylase WNL. Calcium mildly elevated at 10.3, ionized calcium normal at 5.2. PTH 39.9. LDH 203 -Last PSA was 1.9 on 10/26/22. PSA obtained, mildly elevated at 4.3 -Urology following, s/p cystoscopy and bladder tumor resection. Path pending -Due to acute onset of significant right sided abd pain this morning, STAT CT abd/pelvis ordered. CT chest has also been ordered by admitting team. Once pt more stable, will obtain NM bone scan to complete staging Discussed findings and concerns for malignancy with patient and family. All questions and concerns were addressed. Further recommendations pending path and remaining workup Normocytic anemia: -On admit, WBC 16.0, hemoglobin 12.5, MCV 88.6, platelets 427,000. Differential showing neutrophilia, otherwise no significant abnormalities -Upon trending labs, hgb typically in the 15-16 range, hgb was 15.5 on 09/20/23 -Anemia likely r/t ongoing hematuria. Anemia labs obtained to r/o nutritional deficiencies -Iron saturation 6.3%, ferritin 597. IV iron ordered by admitting team. No Vit B12 or folate def. noted -Continue to monitor CBC
[2024-04-07 20:01] LABS: Glucose,Whole Blood 279 mg/dL (70-110)
[2024-04-08 06:23] LABS: Glucose,Whole Blood 103 mg/dL (70-110)
[2024-04-08 09:53] LABS: HCT 37.1 % (39.6-50.0); HGB 11.3 g/dL (13.0-17.0); MCH 27.6 pg (27.0-32.0); MCHC 30.5 g/dL (32.0-37.0); MCV 90.5 FL (80.0-97.0); Mean Platelet Volume 8.8 FL (9.5-12.2); NRBC Per 100 WBC 0 X 10*3/uL (0.00-0.01); Platelet Count 330 X 10*3/uL (140-440); RDW 13.6 % (11.5-14.5); WBC 13.84 X 10*3/uL (4.50-10.00)
[2024-04-08 10:06] LABS: BUN/Creat Ratio 10.33 Ratio (12.00-20.00); Blood Urea Nitrogen 15.5 mg/dL (9.0-27.0); Calcium 9.1 mg/dL (8.7-10.3); Chloride 105 mmol/L (96-109); Glucose 91 mg/dL (70-110); Potassium 4.2 mmol/L (3.5-5.5); Sodium 138 mmol/L (135-145)
[2024-04-08 10:30] LABS: Methylmalonic Acid 0.18 umol/L (<0.40)
[2024-04-08] MEDS: LACTULOSE 20 GM/30 ML CUP PO PRN (11:06)
[2024-04-08 11:28] LABS: Glucose,Whole Blood 253 mg/dL (70-110)
--- NOTE | 2024-04-08 11:51 | P.PN ---
Subjective Progress Note Date: 04/08/24 Principal diagnosis: Hospital course: Patient is a 59 year old male with past medical history of gastric ulcers, diabetes mellitus, hyperlipidemia, hypertension, LICHA on CPAP, osteoarthritis, tobacco dependence presented to the ED with abdominal pain. Patient states the pain started 4-5 months ago. The pain is in the umbilical region more to the left side. He mentions the pain has worsened in the past few days making him unable to do anything but sleep. Currently denies any changes in bowel habits, nausea, vomiting, hematochezia, melena. He mentions having a colonoscopy done about 10 years ago when a large colon mass was found that was unable to be removed via the colonoscope and he had to undergo laparoscopic right colectomy. At the time he also had to undergo laparoscopic umbilical hernia repair and a couple months later he had laparoscopic cholecystectomy. He hasn't had a colonoscopy since. However he does have hematuria and he endorses suprapubic pain while urinating along with increased frequency since 6-8 months. Moreover, he has a family history of prostatic cancer. He also reports back and shoulder pain for which he had an MRI done two weeks ago that also showed retroperitoneal lymphadenopathy. Denies fever, chills, shortness of breath, cough, chest pain, palpitations, dysuria, headache, slurred speech, numbness, tingling, dizziness, lightheadedness. ED documentation reviewed. In the ED patient was treated with dilaudid, morphine, Zofran and 0.9 normal saline. Vitals on admission T 98.6 F, MI 105 bpm, RR 18, BP 111/81, O2 sat 99% on room air Abdomen and pelvis CT shows irregular wall thickening within urinary bladder, recommend neoplasm workup. Extensive fatou aortic adenopathy, consider lymphoma and metastasis in the differential. Prostate prominence. Diverticulosis without acute diverticulitis. Mild diffuse wall thickening through the sigmoid colon is not excluded Labs on admission show WBC 14.9, platelet 500, sodium 138, potassium 4.8, BUN 23, amylase 60, lipase 83, calcium 10.3 UA shows 2+ protein, large blood, moderate leukocyte esterase, more than 182 RBC and WBC, many mucus 04/05/24: Patient seen and examined today. He is currently on 2L oxygen via nasal cannula and saturating at 98%. He endorses back pain and dizziness with any movement, that is limiting his ability to ambulate. Labs today show WBC 12.6, hemoglobin 11.8, sodium of 136, BUN 24. Calcium 9.4, ionized calcium 5.2, lactate dehydrogenase 203, PTH 39.9, vitamin D 25-hydroxy 24.1, rheumatoid factor less than 15, TIFFANY screen negative. Urine culture shows no growth after 18 hours. Chest Xray shows developing left lower lobe infiltrate. 04/06/24: Patient will undergo transurethral resection of bladder tumor today. He continues to be on 2 L of oxygen by nasal cannula and is saturating at 95%. A1c is 5.7. Labs today show WBC 13.03, hemoglobin 10.9. 04/07/24: Patient evaluated at bedside. He is currently saturating at 97% on 2L oxygen via nasal cannula. Patient tolerated the procedure well yesterday but currently he reports pain in the right side of umbilical region of abdomen. He has not had a bowel movement post procedure. Urinary catheter is draining red urine. Labs today show WBC 14.04, hemoglobin 10.8, sodium 139, BUN 16.3. Patient reports Girard makes him sick. 04/08/24: Patient examined today. He notes an improvement in his abdominal pain but reports pain in the epigastrium. Patient continues to be on 2 L of oxygen nasal cannula and is saturating at 96%. Labs today show WBC 13.84, hemoglobin 11.3, creatinine 1.5. Repeat CT scan was obtained yesterday, showing moderate right hydronephrosis with right perinephric stranding and mild left hydronephrosis. There is no evidence of a bladder perforation.There is no evidence for acute process within the lungs. Prostatomegaly. Grade 1 anterolisthesis of L5 on S1 with bilateral spondylolysis. Review of systems: Pertinent positives and negatives as discussed in HPI, a complete review of systems was performed and all other systems are negative. Vitals: Signs Reviewed Physical examination: General: nontoxic, no distress, appears at stated age, overweight Derm: warm, dry, intact Head: atraumatic, normocephalic, symmetric Eyes: EOMI, anicteric sclera Mouth: no lip lesion, mucus membranes moist Cardiovascular: S1 S2 reg, no murmur Lungs: diminished lung sounds Abdominal: soft, tender to palpation in the umbilical region Extremities: No cyanosis, clubbing, or pedal edema Neuro: Alert, Oriented, Gross neurological examination did not reveal any focal deficits. Psych: well appearing, appropriate affect Assessment/Plan: Patient is a 59 year old male with past medical history of COPD, diabetes mellitus, hyperlipidemia, hypertension, on CPAP, osteoarthritis presented to the ED with abdominal pain. He is found to have abdominal lymphadenopathy and is admitted for further workup for neoplasm. Urology recommends cystoscopy with possible bladder tumor resection tomorrow. Active: #. Abdominal lymphadenoapthy #. Urinary bladder tumor, S/p transurethral resection of bladder tumor -Abdomen and pelvis CT shows irregular wall thickening within urinary bladder, recommend neoplasm workup. Extensive fatou aortic adenopathy, consider lymphoma and metastasis in the differential. Prostate prominence. Diverticulosis without acute diverticulitis. Mild diffuse wall thickening through the sigmoid colon is not excluded -Continue Acetaminophen 650 mg p.o. every 6 hours as needed, Dilaudid 0.5 mg IVP every 4 hours as needed (PS 4-6), Dilaudid 1 mg IVP every 4 hours as needed (PS 7-10), Girard 5-325 PO Q4HR PRN, Dicyclomine 10 mg PO TID PRN, Pyridium 100 mg PO TID PRN, Oxycodone 5 mg Q6HR PRN for pain management -TIFFANY screen negative -PSA 4.3, mildly elevated -Repeat CT scan was obtained yesterday, showing moderate right hydronephrosis with right perinephric stranding and mild left hydronephrosis. There is no evidence of a bladder perforation. Prostatomegaly. -Monitor CBC and BMP -Oncology following, recommending NM Bone scan to complete staging -Urology following, recommending possible ureteral stent placement #. UTI #. Hematuria #. Leukocytosis -UA shows 2+ protein, large blood, moderate leukocyte esterase, more than 182 RBC and WBC, many mucus -WBC 14.9 -Urine culture shows no growth after 18 hours. -Given IV Rocephin 2gm for 3 days #. Acute hypoxic respiratory failure #. Possible pneumonia -Chest Xray shows developing left lower lobe infiltrate -CT Chest shows there is no evidence for acute process within the lungs -Given Azithromycin 500 mg PO for 3 days -Continue supplemental oxygen as needed, currently on 2L oxygen via nasal cannula -Albuterol 2.5 mg inhalation QID PRN -Continue Symbicort 2 puff BID -CT Chest with contrast ordered #. ANGIE #. Contrast induced nephropathy Creatinine 1.5 Consult nephrology #. Normocytic anemia, due to QUINCY and mitch anemia turia -Iron 18, TIBC 270, percent saturation 6.67, transferrin 193, ferritin 497, vitamin B12 760, RBC Folate 606 -Venofer 125 mg daily added #. Nausea and vomiting -Continue Zofran 4 mg IVP Q8HR PRN #. Hypercalcemia, resolved #. Vitamin D deficiency -Ca 10.3 -Ionized calcium 5.2, lactate dehydrogenase 203, PTH 39.9, vitamin D 25-hydroxy 24.1, rheumatoid factor less than 15, repeat calcium 9.4 -Vitamin D supplementation #. Constipation -Docusate 100 mg PO BID, Miralax 17 gm PO Daily PRN, Lactulose 20 gm PO BID PRN Chronic: #. Diabetes mellitus #. Hypertension #. Hyperlipidemia #. Anxiety #. Tobacco dependence -Insulin sliding scale with ACHS blood glucose monitoring, Hold home glimepiride -Continue home meds [id number] p.o. daily, atorvastatin 80 mg p.o. at bedtime, Bupropion 150 mg PO daily F: 0.9 normal saline at 75 mL/h E: Replete as required N: Regular diet GI prophylaxis: Pantoprazole 40 mg p.o. daily Objective - Vital Signs Vital signs: Vital Signs Temp 97.6 F 04/08/24 07:09 Pulse 73 04/08/24 07:09 Resp 18 04/08/24 07:09 BP 119/82 04/08/24 07:09 Pulse Ox 96 04/08/24 08:44 FiO2 Intake & Output 04/07/24 04/08/24 04/08/24 18:59 06:59 18:59 Intake Total 540 Output Total 1280 1750 Balance -1280 -1210 Intake: Oral 540 Output: Urine 1280 1750 Other: Voiding Method Urinal Indwelling Catheter Indwelling Catheter - Labs CBC & Chem 7: 04/08/24 05:53 04/08/24 05:53 Labs: Abnormal Lab Results - Last 24 Hours (Table) 04/07/24 04/07/24 04/07/24 Range/Units 11:42 16:26 19:59 WBC (4.50-10.00) X 10*3/uL RBC (4.40-5.60) X 10*6/uL Hgb (13.0-17.0) g/dL Hct (39.6-50.0) % MCHC (32.0-37.0) g/dL MPV (9.5-12.2) FL Est GFR (CKD-EPI) (>=60) BUN/Creatinine Ratio (12.00-20.00) Ratio POC Glucose (mg/dL) 221 H 141 H 279 H (70-110) mg/dL 04/08/24 04/08/24 Range/Units 05:53 05:53 WBC 13.84 H (4.50-10.00) X 10*3/uL RBC 4.10 L (4.40-5.60) X 10*6/uL Hgb 11.3 L (13.0-17.0) g/dL Hct 37.1 L (39.6-50.0) % MCHC 30.5 L (32.0-37.0) g/dL MPV 8.8 L (9.5-12.2) FL Est GFR (CKD-EPI) 53 L (>=60) BUN/Creatinine Ratio 10.33 L (12.00-20.00) Ratio POC Glucose (mg/dL) (70-110) mg/dL
--- NOTE | 2024-04-08 13:12 | P.PN ---
Subjective Progress Note Date: 04/08/24 Principal diagnosis: Hematuria due to multifocal bladder tumors Mr. Cowan presented with a long history of gross hematuria. Cystoscopy confirmed the presence of multiple bladder tumors, some of which appear to be muscle invasive. He underwent bladder tumor resection in April 06, 2024 but the resection was incomplete given the volume of disease. Postoperatively, he has developed bilateral hydronephrosis. He experienced significant abdominal pain yesterday, which is essentially resolved today. However, his serum creatinine level has risen to 1.5 today. Objective - Vital Signs Vital signs: Vital Signs Temp 97.6 F 04/08/24 07:09 Pulse 73 04/08/24 07:09 Resp 18 04/08/24 07:09 BP 119/82 04/08/24 07:09 Pulse Ox 96 04/08/24 08:44 FiO2 Intake & Output 04/07/24 04/08/24 04/08/24 18:59 06:59 18:59 Intake Total 540 Output Total 1280 1750 Balance -1280 -1210 Intake: Oral 540 Output: Urine 1280 1750 Other: Voiding Method Urinal Indwelling Catheter - Constitutional General appearance: Present: average body habitus, cooperative, no acute distress - Gastrointestinal Gastrointestinal Comment(s): Soft, non-tender, non-distended, no mass. No CVA tenderness. - Genitourinary Genitourinary Comment(s): Street catheter intact, draining urine which is light red in color without clots. - Psychiatric Psychiatric: Present: A&O x's 3 - Labs CBC & Chem 7: 04/08/24 05:53 04/08/24 05:53 Labs: Abnormal Lab Results - Last 24 Hours (Table) 04/07/24 04/07/24 04/07/24 Range/Units 11:42 16:26 19:59 WBC (4.50-10.00) X 10*3/uL RBC (4.40-5.60) X 10*6/uL Hgb (13.0-17.0) g/dL Hct (39.6-50.0) % MCHC (32.0-37.0) g/dL MPV (9.5-12.2) FL Est GFR (CKD-EPI) (>=60) BUN/Creatinine Ratio (12.00-20.00) Ratio POC Glucose (mg/dL) 221 H 141 H 279 H (70-110) mg/dL 04/08/24 04/08/24 Range/Units 05:53 05:53 WBC 13.84 H (4.50-10.00) X 10*3/uL RBC 4.10 L (4.40-5.60) X 10*6/uL Hgb 11.3 L (13.0-17.0) g/dL Hct 37.1 L (39.6-50.0) % MCHC 30.5 L (32.0-37.0) g/dL MPV 8.8 L (9.5-12.2) FL Est GFR (CKD-EPI) 53 L (>=60) BUN/Creatinine Ratio 10.33 L (12.00-20.00) Ratio POC Glucose (mg/dL) (70-110) mg/dL Assessment and Plan (1) Gross hematuria Current Visit: Yes Status: Acute Priority: High Code(s): R31.0 - GROSS HEMATURIA SNOMED Code(s): 639221411 (2) Abnormal radiologic findings on diagnostic imaging of renal pelvis, ureter, or bladder Current Visit: Yes Status: Acute Code(s): R93.41 - ABN RADLGC FIND ON DX IMAGING RENAL PELV, URETER, OR BLDDR SNOMED Code(s): 660582371 Plan: Mr. Fuller underwent bladder tumor resection in April 06, 2024. 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 I believe his abdominal pain is due to the retroperitoneal adenopathy. He developed hydronephrosis with impaired renal function following bladder tumor resection. His pain is much improved today. If his renal function worsens tomorrow, I have recommended he undergo cystoscopy with bilateral ureteral stent insertion. I explained that identification of the ureteral orifices in this postoperative period may be difficult. He will be made n.p.o. after midnight given the possibility of a procedure tomorrow.
[2024-04-08 16:34] LABS: Glucose,Whole Blood 162 mg/dL (70-110)
[2024-04-08 21:18] LABS: Glucose,Whole Blood 180 mg/dL (70-110)
[2024-04-09 06:28] LABS: Glucose,Whole Blood 110 mg/dL (70-110)
[2024-04-09 09:49] LABS: HCT 34.5 % (39.6-50.0); HGB 10.7 g/dL (13.0-17.0); MCH 27.8 pg (27.0-32.0); MCV 89.6 FL (80.0-97.0); Mean Platelet Volume 8.8 FL (9.5-12.2); NRBC Per 100 WBC 0 X 10*3/uL (0.00-0.01); Platelet Count 341 X 10*3/uL (140-440); RBC 3.85 X 10*6/uL (4.40-5.60); RDW 13.8 % (11.5-14.5); WBC 12.51 X 10*3/uL (4.50-10.00)
--- NOTE | 2024-04-09 11:05 | P.NPCON ---
History of Present Illness - Reason for Consult acute renal failure - History of Present Illness Reason for consultation: Acute kidney injury History of present illness: Patient is a 59-year-old male seen in renal consultation for acute kidney injury. Patient came to the hospital on April 03, 2024 with abdominal pain. Patient is resting in bed and does not provide much history. is present at bedside. According to abdominal pain has been going on for about 4 months and has been progressively getting worse. He was also having loose bowel movements intermittently. He has been having gross hematuria for several months now. Patient is being followed by urology and underwent a cystoscopy which showed multiple bladder tumors, muscle invasive. He did undergo bladder tumor resection on April 06, 2024. Patient now has developed bilateral hydronephrosis and has a Street catheter. He is nonoliguric. He did receive IV contrast on April 03, 2024 as well as April 07, 2024. Oral intake has been poor. Hemodynamically stable. He is on 2 L nasal cannula. Denies use of nonsteroidals. Patient does have history of diabetes. Denies history of coronary artery disease. Vital signs are stable. General: The no acute distress. HEENT: Head exam is unremarkable. LUNGS: No audible rhonchi or wheezes. HEART: Rate and Rhythm are regular. ABDOMEN: Generalized tenderness present. EXTREMITITES: No edema. Past Medical History Past Medical History: COPD, Diabetes Mellitus, Hyperlipidemia, Hypertension, Osteoarthritis (OA), Renal Disease, Sleep Apnea/CPAP/BIPAP Additional Past Medical History / Comment(s): CPAP MACHINE , acute renal failure 2014- History of Any Multi-Drug Resistant Organisms: None Reported Past Surgical History: Bowel Resection, Cholecystectomy Additional Past Surgical History / Comment(s): Laparoscopic R colectomy. HAD FRONT TEETH PULLED UNDER ANESTHESIA, COLONOSCOPY Past Anesthesia/Blood Transfusion Reactions: No Reported Reaction Additional Past Anesthesia/Blood Transfusion Reaction / Comment(s): Pt has never received blood. Past Psychological History: Anxiety Past Alcohol Use History: Occasional Past Drug Use History: Marijuana - Past Family History Father Family Medical History: Diabetes Mellitus, Prostate Disorder, Renal Disease Additional Family Medical History / Comment(s): Father is 72 yrs old. Mother Family Medical History: Diabetes Mellitus Additional Family Medical History / Comment(s): Mother is 72 yrs old. She has a murmur. Pt does not know what type of blood disorder but it causes her to bruise easily. Medications and Allergies Home Medications Medication Instructions Recorded Confirmed Type buPROPion XL [Wellbutrin XL] 150 mg PO DAILY 05/10/15 04/04/24 History Atorvastatin [Lipitor] 80 mg PO HS 11/14/15 04/04/24 History Glimepiride [Amaryl] 2 mg PO BID #60 tab 11/19/15 04/04/24 Rx amLODIPine BES/OLMESARTAN MED 1 tab PO DAILY 04/04/24 04/04/24 History [amLODIPine BES/OLMESARTAN MED 10-40 mg] Allergies Allergy/AdvReac Type Severity Reaction Status Date / Time No Known Allergies Allergy Verified 04/06/24 09:27 Physical Exam Vitals: Vital Signs Temp Pulse Resp BP Pulse Ox 04/09/24 07:18 97.7 F 81 18 127/90 98 04/09/24 01:42 98.4 F 88 17 132/91 96 04/08/24 19:52 99.1 F 69 16 118/81 97 04/08/24 13:37 98.6 F 86 18 118/79 96 Intake and Output 04/08/24 04/09/24 04/09/24 22:59 06:59 14:59 Output Total 1000 1050 Balance -1000 -1050 Output: Urine 1000 1050 Other: Voiding Method Indwelling Catheter Results - Lab Results Most recent lab results Calcium 9.1 mg/dL (8.7-10.3) 04/08/24 05:53 04/09/24 02:46 04/08/24 05:53 Assessment and Plan Plan: Assessment: 1. Acute kidney injury secondary to ATN secondary to contrast associated acute kidney injury as well as obstructive uropathy with bilateral hydronephrosis. Baseline creatinine near 1 and up to 1.5 yesterday. 2. 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 3. Bilateral hydronephrosis being followed by urology. 4. Diabetes mellitus. 5. Benign hypertension. Controlled. Plan: Start normal saline at 60 cc an hour. Avoid nephrotoxins. Follow-up morning labs. If renal function continues to worsen, will need ureteral stents placement. Case discussed with urology. Thank you for the consultation. I will continue to follow the patient with you during his hospital stay.
[2024-04-09 11:26] LABS: Blood Urea Nitrogen 14.4 mg/dL (9.0-27.0); Carbon Dioxide 23.6 mmol/L (21.6-31.8); Chloride 105 mmol/L (96-109); Glucose 85 mg/dL (70-110); Potassium 4.3 mmol/L (3.5-5.5); Sodium 140 mmol/L (135-145)
[2024-04-09] MEDS ORDERED: HYDROmorphone 0.5 MG/0.5 ML SYRINGE IVP PRN (11:30)
[2024-04-09] MEDS: HYDROmorphone 1 MG/ML 1 ML SYRINGE IVP PRN (11:48)
[2024-04-09 11:49] LABS: African American GFR (CKD) 61 (>60 ml/min/1.73 sqM); Anion Gap 4 mmol/L; Blood Urea Nitrogen 16 mg/dL (9-20); Calcium 9.2 mg/dL (8.4-10.2); Carbon Dioxide 29 mmol/L (22-30); Chloride 104 mmol/L (98-107); Glucose 90 mg/dL (74-99); Non-African American GFR(CKD) 53 (>60 ml/min/1.73 sqM); Potassium 4.2 mmol/L (3.5-5.1); Sodium 137 mmol/L (137-145)
[2024-04-09 11:55] LABS: Glucose,Whole Blood 128 mg/dL (70-110)
--- NOTE | 2024-04-09 13:38 | P.PN ---
Subjective Progress Note Date: 04/09/24 Principal diagnosis: Hematuria due to multifocal bladder tumors Mr. Cowan presented with a long history of gross hematuria. Cystoscopy confirmed the presence of multiple bladder tumors, some of which appear to be muscle invasive. He underwent bladder tumor resection in April 06, 2024 but the resection was incomplete given the volume of disease. Postoperatively, he developed bilateral hydronephrosis. He experienced significant abdominal pain on POD #1, which is gradually improving to his baseline. His serum creatinine level yesterday was 1.5. It peaked at 1.6 early this morning (blood draw at 3 AM ), and improved to 1.43 late this morning. Objective - Vital Signs Vital signs: Vital Signs Temp 97.7 F 04/09/24 07:18 Pulse 81 04/09/24 07:18 Resp 18 04/09/24 07:18 BP 127/90 04/09/24 07:18 Pulse Ox 98 04/09/24 07:18 FiO2 Intake & Output 04/08/24 04/09/24 04/09/24 18:59 06:59 18:59 Output Total 1000 1050 Balance -1000 -1050 Output: Urine 1000 1050 Other: Voiding Method Indwelling Catheter Indwelling Catheter - Constitutional General appearance: Present: average body habitus, cooperative, mild distress - Gastrointestinal Gastrointestinal Comment(s): Soft, non-tender, non-distended. - Psychiatric Psychiatric: Present: A&O x's 3 - Labs CBC & Chem 7: 04/09/24 02:46 04/09/24 11:15 Labs: Abnormal Lab Results - Last 24 Hours (Table) 04/08/24 04/08/24 04/09/24 Range/Units 16:32 21:17 02:46 WBC 12.51 H (4.50-10.00) X 10*3/uL RBC 3.85 L (4.40-5.60) X 10*6/uL Hgb 10.7 L (13.0-17.0) g/dL Hct 34.5 L (39.6-50.0) % MCHC 31.0 L (32.0-37.0) g/dL MPV 8.8 L (9.5-12.2) FL Creatinine (0.6-1.5) mg/dL Est GFR (CKD-EPI) (>=60) BUN/Creatinine Ratio (12.00-20.00) Ratio POC Glucose (mg/dL) 162 H 180 H (70-110) mg/dL 04/09/24 04/09/24 04/09/24 Range/Units 02:46 11:15 11:54 WBC (4.50-10.00) X 10*3/uL RBC (4.40-5.60) X 10*6/uL Hgb (13.0-17.0) g/dL Hct (39.6-50.0) % MCHC (32.0-37.0) g/dL MPV (9.5-12.2) FL Creatinine 1.6 H 1.43 H (0.6-1.5) mg/dL Est GFR (CKD-EPI) 49 L (>=60) BUN/Creatinine Ratio 9.00 L (12.00-20.00) Ratio POC Glucose (mg/dL) 128 H (70-110) mg/dL Assessment and Plan (1) Gross hematuria Current Visit: Yes Status: Acute Priority: High Code(s): R31.0 - GROSS HEMATURIA SNOMED Code(s): 131936097 (2) Abnormal radiologic findings on diagnostic imaging of renal pelvis, ureter, or bladder Current Visit: Yes Status: Acute Code(s): R93.41 - ABN RADLGC FIND ON DX IMAGING RENAL PELV, URETER, OR BLDDR SNOMED Code(s): 072306743 Plan: Mr. Fuller underwent bladder tumor resection in April 06, 2024. 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 I believe the abdominal pain he presented with was due to the retroperitoneal adenopathy. He developed hydronephrosis with impaired renal function following bladder tumor resection, and his pain worsened following that procedure. It is felt that the hydronephrosis is due to bladder wall edema from the resection. The right ureteral orifice was resected and was widely patent following resection. He does appear to have 1 or 2 small right distal ureteral calculi. The Street catheter is draining urine which has essentially cleared. His pain has gradually improved since it peaked Wednesday afternoon. Consideration was given to placing ureteral stents today, but given that he is clinically improved and his renal function appears to have plateaued he will continue to be observed closely.
--- NOTE | 2024-04-09 15:20 | P.PN ---
Subjective Progress Note Date: 04/09/24 Patient evaluated today resting in bed with at the bedside. He does continue to report significant abdominal discomfort states that Dilaudid is wearing off after 3 hours so we will increase it up to 1 mg every 3 hours patient can continue with the Oxy every 6 hours as needed. Blood work today reveals a white blood cell count of 12.51, hemoglobin 10.7, BUN of 14 and a creatinine of 1.6. Patient was evaluated by nephrology recommending to continue normal saline at 60 mL/h and monitor renal function closely. Urology following and monitoring the need for bilateral ureteral stenting. Pathology is currently pending from his bladder resection. Review of Systems Constitutional: Denied any fatigue denied any fever. Cardio vascular: denied any chest pain, palpitations Gastrointestinal: denied any nausea, vomiting, diarrhea Pulmonary: Denied any shortness of breath cough Neurologic denied any new focal deficits All inpatient medications were reviewed and appropriate changes in these medicat ions as dictated in the interval history and assessment and plan. PHYSICAL EXAMINATION: GENERAL: The patient is alert and oriented x3, not in any acute distress. Well developed, well nourished. HEENT: Pupils are round and equally reacting to light. EOMI. No scleral icterus. No conjunctival pallor. Normocephalic, atraumatic. No pharyngeal erythema. No thyromegaly. CARDIOVASCULAR: S1 and S2 present. No murmurs, rubs, or gallops. PULMONARY: Chest is clear to auscultation, no wheezing or crackles. ABDOMEN: Soft, nontender, nondistended, normoactive bowel sounds. No palpable organomegaly. MUSCULOSKELETAL: No joint swelling or deformity. EXTREMITIES: No cyanosis, clubbing, or pedal edema. NEUROLOGICAL: Gross neurological examination did not reveal any focal deficits. SKIN: No rashes. Assessment and plan Abdominal lymphadenopathy Urinary bladder tumor Post transurethral resection of bladder tumor Moderate hydronephrosis postprocedure Acute urinary tract infection present on admission Hematuria Leukocytosis Acute hypoxemic respiratory failure with concern for developing left lower lobe infiltrate continues on azithromycin Acute kidney injury and contrast-induced nephropathy as well as obstructive uropathy Normocytic anemia Nausea vomiting Hypercalcemia resolved Vitamin D deficiency Constipation Diabetes mellitus type 2 Hypertension Hyperlipidemia Anxiety Tobacco dependence GI prophylaxis Prophylaxis Full code Plan Neurology following closely and monitoring daily for need for your bilateral ureteral stenting Nephrology consultation patient will continue on normal saline Monitor renal function and electrolytes closely Continue Oxy IR every 6 hours as needed with Dilaudid 1 mg every 3 hours for breakthrough pain patient also has [place] 5 every 4 hours as needed for pain. Pathology pending from the transurethral bladder resection Oncology following Continue Accu-Cheks and sliding scale insulin The impression and plan of care has been dictated by Opal Alan, Nurse Practitioner as directed. Dr. Yassine MD I have performed a history and physical examination and medical decision making of this patient, discussed the same with the dictator, and agree with the dictators assessment and plan as written, documented as a scribe. Based on total visit time, I have performed more than 50% of this visit. Objective - Vital Signs Vital signs: Vital Signs Temp 98.0 F 04/09/24 13:47 Pulse 72 04/09/24 13:47 Resp 20 04/09/24 13:47 BP 119/80 04/09/24 13:47 Pulse Ox 98 04/09/24 13:47 FiO2 Intake & Output 04/08/24 04/09/24 04/09/24 18:59 06:59 18:59 Output Total 1000 1050 Balance -1000 -1050 Output: Urine 1000 1050 Other: Voiding Method Indwelling Catheter Indwelling Catheter - Labs CBC & Chem 7: 04/09/24 02:46 04/09/24 11:15 Labs: Abnormal Lab Results - Last 24 Hours (Table) 04/08/24 04/08/24 04/09/24 Range/Units 16:32 21:17 02:46 WBC 12.51 H (4.50-10.00) X 10*3/uL RBC 3.85 L (4.40-5.60) X 10*6/uL Hgb 10.7 L (13.0-17.0) g/dL Hct 34.5 L (39.6-50.0) % MCHC 31.0 L (32.0-37.0) g/dL MPV 8.8 L (9.5-12.2) FL Creatinine (0.6-1.5) mg/dL Est GFR (CKD-EPI) (>=60) BUN/Creatinine Ratio (12.00-20.00) Ratio POC Glucose (mg/dL) 162 H 180 H (70-110) mg/dL 04/09/24 04/09/24 04/09/24 Range/Units 02:46 11:15 11:54 WBC (4.50-10.00) X 10*3/uL RBC (4.40-5.60) X 10*6/uL Hgb (13.0-17.0) g/dL Hct (39.6-50.0) % MCHC (32.0-37.0) g/dL MPV (9.5-12.2) FL Creatinine 1.6 H 1.43 H (0.6-1.5) mg/dL Est GFR (CKD-EPI) 49 L (>=60) BUN/Creatinine Ratio 9.00 L (12.00-20.00) Ratio POC Glucose (mg/dL) 128 H (70-110) mg/dL Assessment and Plan Time with Patient: Less than 30
[2024-04-09 16:52] LABS: Glucose,Whole Blood 168 mg/dL (70-110)
[2024-04-09 21:18] LABS: Glucose,Whole Blood 132 mg/dL (70-110)
[2024-04-10 06:37] LABS: Glucose,Whole Blood 111 mg/dL (70-110)
[2024-04-10 08:43] LABS: BUN/Creat Ratio 11.07 Ratio (12.00-20.00); Blood Urea Nitrogen 16.6 mg/dL (9.0-27.0); Calcium 9.1 mg/dL (8.7-10.3); Carbon Dioxide 26.2 mmol/L (21.6-31.8); Chloride 103 mmol/L (96-109); Glucose 92 mg/dL (70-110); Magnesium 1.7 mg/dL (1.5-2.4); Potassium 4.7 mmol/L (3.5-5.5); Sodium 138 mmol/L (135-145)
[2024-04-10 09:25] LABS: HCT 35.7 % (39.6-50.0); MCH 27.8 pg (27.0-32.0); MCHC 30.8 g/dL (32.0-37.0); MCV 90.4 FL (80.0-97.0); Mean Platelet Volume 9.3 FL (9.5-12.2); NRBC Per 100 WBC 0 X 10*3/uL (0.00-0.01); Platelet Count 329 X 10*3/uL (140-440); RBC 3.95 X 10*6/uL (4.40-5.60); RDW 13.7 % (11.5-14.5)
[2024-04-10 11:23] LABS: Glucose,Whole Blood 161 mg/dL (70-110)
--- NOTE | 2024-04-10 13:47 | P.PN ---
Subjective Patient is seen for follow-up for acute kidney injury. Serum creatinine at 1.5 mg/dL. Maintained on IV fluids Urine continues to be bloody. Patient has indwelling Street catheter. 24-hour urine output at 1950ml Objective - Vital Signs Vital signs: Vital Signs Temp 97.0 F L 04/10/24 07:48 Pulse 80 04/10/24 08:43 Resp 16 04/10/24 08:43 BP 128/84 04/10/24 07:48 Pulse Ox 97 04/10/24 07:48 FiO2 Intake & Output 04/09/24 04/10/24 04/10/24 18:59 06:59 18:59 Output Total 900 1050 Balance -900 -1050 Output: Urine 900 1050 Other: Voiding Method Indwelling Catheter Indwelling Catheter Indwelling Catheter # Bowel Movements 1 - Exam Patient is awake, comfortable, no acute distress Examination of the heart S1 and S2 Examination of the lungs bilateral breath sounds are heard Abdomen is soft nontender Examination of lower extremities shows no significant edema - Labs CBC & Chem 7: 04/10/24 02:47 04/10/24 02:47 Labs: Abnormal Lab Results - Last 24 Hours (Table) 04/09/24 04/09/24 04/10/24 Range/Units 16:51 21:16 02:47 WBC 12.20 H (4.50-10.00) X 10*3/uL RBC 3.95 L (4.40-5.60) X 10*6/uL Hgb 11.0 L (13.0-17.0) g/dL Hct 35.7 L (39.6-50.0) % MCHC 30.8 L (32.0-37.0) g/dL MPV 9.3 L (9.5-12.2) FL Est GFR (CKD-EPI) (>=60) BUN/Creatinine Ratio (12.00-20.00) Ratio POC Glucose (mg/dL) 168 H 132 H (70-110) mg/dL 04/10/24 04/10/24 04/10/24 Range/Units 02:47 06:35 11:21 WBC (4.50-10.00) X 10*3/uL RBC (4.40-5.60) X 10*6/uL Hgb (13.0-17.0) g/dL Hct (39.6-50.0) % MCHC (32.0-37.0) g/dL MPV (9.5-12.2) FL Est GFR (CKD-EPI) 53 L (>=60) BUN/Creatinine Ratio 11.07 L (12.00-20.00) Ratio POC Glucose (mg/dL) 111 H 161 H (70-110) mg/dL Assessment and Plan Assessment: 1. Acute kidney injury secondary to ATN secondary to contrast associated acute kidney injury as well as obstructive uropathy with bilateral hydronephrosis. Baseline creatinine near 1 and it is 1.5 today. 2. 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 3. Bilateral hydronephrosis being followed by urology. No plans for intervention as renal function is fairly stable. 4. Diabetes mellitus. 5. Benign hypertension. Controlled. Plan: Continue with IV fluids. Repeat labs in a.m. Urology will intervention if renal function worsens
--- NOTE | 2024-04-10 13:59 | P.PN ---
Subjective Progress Note Date: 04/10/24 The patient is status post TURBT by . He is recuperating nicely. From a urologic standpoint he Is doing well. His creatinine today is 1.5. Objective - Vital Signs Vital signs: Vital Signs Temp 97.0 F L 04/10/24 07:48 Pulse 80 04/10/24 08:43 Resp 16 04/10/24 08:43 BP 128/84 04/10/24 07:48 Pulse Ox 97 04/10/24 07:48 FiO2 Intake & Output 04/09/24 04/10/24 04/10/24 18:59 06:59 18:59 Output Total 900 1050 Balance -900 -1050 Output: Urine 900 1050 Other: Voiding Method Indwelling Catheter Indwelling Catheter Indwelling Catheter # Bowel Movements 1 - Labs CBC & Chem 7: 04/10/24 02:47 04/10/24 02:47 Labs: Abnormal Lab Results - Last 24 Hours (Table) 04/09/24 04/09/24 04/10/24 Range/Units 16:51 21:16 02:47 WBC 12.20 H (4.50-10.00) X 10*3/uL RBC 3.95 L (4.40-5.60) X 10*6/uL Hgb 11.0 L (13.0-17.0) g/dL Hct 35.7 L (39.6-50.0) % MCHC 30.8 L (32.0-37.0) g/dL MPV 9.3 L (9.5-12.2) FL Est GFR (CKD-EPI) (>=60) BUN/Creatinine Ratio (12.00-20.00) Ratio POC Glucose (mg/dL) 168 H 132 H (70-110) mg/dL 04/10/24 04/10/24 04/10/24 Range/Units 02:47 06:35 11:21 WBC (4.50-10.00) X 10*3/uL RBC (4.40-5.60) X 10*6/uL Hgb (13.0-17.0) g/dL Hct (39.6-50.0) % MCHC (32.0-37.0) g/dL MPV (9.5-12.2) FL Est GFR (CKD-EPI) 53 L (>=60) BUN/Creatinine Ratio 11.07 L (12.00-20.00) Ratio POC Glucose (mg/dL) 111 H 161 H (70-110) mg/dL Assessment and Plan Assessment: Impression: Bladder cancer status post TURBT. Chronic renal insufficiency stable Recommendations: The pathology report is pending. He should continue with indwelling catheter for at least another week.
--- NOTE | 2024-04-10 15:09 | P.PN ---
Subjective Progress Note Date: 04/10/24 Status post cystoscopy, TUR-BT , postop day #4. Postoperatively patient had developed acute kidney injury, obstructive uropathy with bilateral hydronephrosis. Per urology not requiring stents at this time ,renal function improving/stable, creatinine currently 1.5 in a patient with baseline of 1. 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 Oncology consult in place. maintained on IV fluid hydration, glez with hematuria. Urine culture of 04/04/2024 reporting no growth after 18 hours.Reports ongoing abdominal pain. Positive bowel movement this morning. Tmax 99.3, WBC 12.2. Objective - Vital Signs Vital signs: Vital Signs Temp 97.0 F L 04/10/24 07:48 Pulse 80 04/10/24 08:43 Resp 16 04/10/24 08:43 BP 128/84 04/10/24 07:48 Pulse Ox 97 04/10/24 07:48 FiO2 Intake & Output 04/09/24 04/10/24 04/10/24 18:59 06:59 18:59 Output Total 900 1050 Balance -900 -1050 Output: Urine 900 1050 Other: Voiding Method Indwelling Catheter Indwelling Catheter Indwelling Catheter # Bowel Movements 1 - Exam GENERAL:Alert and oriented x3, sitting up in bed, no acute distress. HEENT: Normocephalic, atraumatic ,pupils are round and equally reacting to light. EOMI. No scleral icterus. No conjunctival pallor. CARDIOVASCULAR: S1 and S2 present. No murmurs, rubs, or gallops. PULMONARY: Unlabored, equal air entry, chest is clear to auscultation, no wheezing or crackles. ABDOMEN: Soft, nondistended, status post surgery ,normoactive bowel sounds. EXTREMITIES: No edema, cyanosis or clubbing. NEUROLOGICAL: Gross neurological examination did not reveal any focal deficits. SKIN: Warm and dry, no rashes. - Labs CBC & Chem 7: 04/10/24 02:47 04/10/24 02:47 Labs: Abnormal Lab Results - Last 24 Hours (Table) 04/09/24 04/09/24 04/10/24 Range/Units 16:51 21:16 02:47 WBC 12.20 H (4.50-10.00) X 10*3/uL RBC 3.95 L (4.40-5.60) X 10*6/uL Hgb 11.0 L (13.0-17.0) g/dL Hct 35.7 L (39.6-50.0) % MCHC 30.8 L (32.0-37.0) g/dL MPV 9.3 L (9.5-12.2) FL Est GFR (CKD-EPI) (>=60) BUN/Creatinine Ratio (12.00-20.00) Ratio POC Glucose (mg/dL) 168 H 132 H (70-110) mg/dL 04/10/24 04/10/24 04/10/24 Range/Units 02:47 06:35 11:21 WBC (4.50-10.00) X 10*3/uL RBC (4.40-5.60) X 10*6/uL Hgb (13.0-17.0) g/dL Hct (39.6-50.0) % MCHC (32.0-37.0) g/dL MPV (9.5-12.2) FL Est GFR (CKD-EPI) 53 L (>=60) BUN/Creatinine Ratio 11.07 L (12.00-20.00) Ratio POC Glucose (mg/dL) 111 H 161 H (70-110) mg/dL Assessment and Plan Assessment: Abdominal lymphadenopathy Urinary bladder tumor Post transurethral resection of bladder tumor, pathology p ending. Moderate hydronephrosis postprocedure Acute urinary tract infection present on admission, urine culture reported no growth after 18 hours. Hematuria Leukocytosis Acute hypoxemic respiratory failure Acute kidney injury and contrast-induced nephropathy as well as obstructive uropathy with bilateral hydronephrosis. Baseline creatinine 1. Normocytic anemia Hypercalcemia resolved Vitamin D deficiency Constipation Diabetes mellitus type 2 Hypertension Hyperlipidemia Anxiety Nicotine dependence Daily marijuana use Plan: Continue on current medication resume ,monitoring and symptomatic alfonzo atment. Pain management. Pathology pending. oncology consult in place with recommendations pending. Smoking cessation nicotine/marijuana use. IV fluid hydration with close monitoring of renal function. The impression and plan of care has been dictated as directed. : I performed a history and examination of this patient, discussed the same with the dictator. I agree with the dictator's note ,documented as a scribe. Any additional findings or plans will be noted.
[2024-04-10 16:37] LABS: Glucose,Whole Blood 136 mg/dL (70-110)
[2024-04-10 19:55] LABS: Glucose,Whole Blood 163 mg/dL (70-110)
[2024-04-11 06:32] LABS: Glucose,Whole Blood 106 mg/dL (70-110)
--- NOTE | 2024-04-11 08:27 | P.PN ---
Subjective Progress Note Date: 04/11/24 The patient is in the hospital with abdominal pain and gross hematuria. The patient had a turbt by Dr Cuello which identified a large volume of bladder cancer. the ct scan identifed a large volume of retroperitoneal lymph node enlargement. the pathology came back yesterday as high grade muscle invasive b ladder cancer. With this pathology he most likely has metastatic disease. He had some post op hydro probably secondary to post surgical edema. Objective - Vital Signs Vital signs: Vital Signs Temp 99.0 F 04/11/24 01:45 Pulse 81 04/11/24 01:45 Resp 16 04/11/24 01:45 BP 105/74 04/11/24 01:45 Pulse Ox 96 04/11/24 01:45 FiO2 Intake & Output 04/10/24 04/10/24 04/11/24 06:59 18:59 06:59 Intake Total 1200 540 Output Total 1050 1300 2400 Balance -1050 -100 -1860 Intake: Oral 1200 540 Output: Urine 1050 1300 2400 Other: Voiding Method Indwelling Catheter Indwelling Catheter Indwelling Catheter # Bowel Movements 1 - Labs CBC & Chem 7: 04/10/24 02:47 04/10/24 02:47 Labs: Abnormal Lab Results - Last 24 Hours (Table) 04/10/24 04/10/24 04/10/24 Range/Units 02:47 02:47 11:21 WBC 12.20 H (4.50-10.00) X 10*3/uL RBC 3.95 L (4.40-5.60) X 10*6/uL Hgb 11.0 L (13.0-17.0) g/dL Hct 35.7 L (39.6-50.0) % MCHC 30.8 L (32.0-37.0) g/dL MPV 9.3 L (9.5-12.2) FL Est GFR (CKD-EPI) 53 L (>=60) BUN/Creatinine Ratio 11.07 L (12.00-20.00) Ratio POC Glucose (mg/dL) 161 H (70-110) mg/dL 04/10/24 04/10/24 Range/Units 16:35 19:53 WBC (4.50-10.00) X 10*3/uL RBC (4.40-5.60) X 10*6/uL Hgb (13.0-17.0) g/dL Hct (39.6-50.0) % MCHC (32.0-37.0) g/dL MPV (9.5-12.2) FL Est GFR (CKD-EPI) (>=60) BUN/Creatinine Ratio (12.00-20.00) Ratio POC Glucose (mg/dL) 136 H 163 H (70-110) mg/dL Assessment and Plan Assessment: Impression: High grade muscle invasive bladder cancer with probable metastasis to retroperitoneum. Recommedations. Unfortunately metastatic bladder cancer carries a poor progniosis He will need oncologic evaluation and treatment. I spent time with the patient explaining this to him. Pending oncologic assessment as to further urologic recommedations
[2024-04-11 08:41] LABS: Basophils # (A) 0.06 X 10*3/uL (0.00-0.10); Basophils % (A) 0.5 %; Eosinophils # (A) 0.23 X 10*3/uL (0.04-0.35); Eosinophils % (A) 1.9 %; HCT 32.2 % (39.6-50.0); HGB 10.1 g/dL (13.0-17.0); Lymphocytes # (A) 2.34 X 10*3/uL (0.90-5.00); Lymphocytes % (A) 19.5 %; MCH 27.7 pg (27.0-32.0); MCHC 31.4 g/dL (32.0-37.0); MCV 88.2 FL (80.0-97.0); Mean Platelet Volume 8.8 FL (9.5-12.2); Monocytes # (A) 0.98 X 10*3/uL (0.20-1.00); Monocytes % (A) 8.2 %; NRBC Per 100 WBC 0 X 10*3/uL (0.00-0.01); Neutrophils # (A) 8.37 X 10*3/uL (1.80-7.70); Neutrophils % (A) 69.6 %; Platelet Count 320 X 10*3/uL (140-440); RBC 3.65 X 10*6/uL (4.40-5.60); RDW 13.9 % (11.5-14.5); WBC 12.02 X 10*3/uL (4.50-10.00)
[2024-04-11 08:57] LABS: BUN/Creat Ratio 13.64 Ratio (12.00-20.00); Calcium 8.8 mg/dL (8.7-10.3); Carbon Dioxide 25.7 mmol/L (21.6-31.8); Chloride 106 mmol/L (96-109); Glucose 115 mg/dL (70-110); Potassium 4.2 mmol/L (3.5-5.5); Sodium 141 mmol/L (135-145)
--- NOTE | 2024-04-11 10:34 | P.PN ---
Subjective Progress Note Date: 04/11/24 Status post cystoscopy, TUR-BT , postop day #4. Postoperatively patient had developed acute kidney injury, obstructive uropathy with bilateral hydronephrosis. Per urology not requiring stents at this time ,renal function improving/stable, creatinine currently 1.5 in a patient with baseline of 1. 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 Oncology consult in place. maintained on IV fluid hydration, glez with hematuria. Urine culture of 04/04/2024 reporting no growth after 18 hours.Reports ongoing abdominal pain. Positive bowel movement this morning. Tmax 99.3, WBC 12.2. 04/11/2024 Tmax 99.9, WBC decreased to 12.02. Hemoglobin 10.1, platelets 320. Creatinine 1.1, GFR 53. Status post TURBT. 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 Positive for focal lymphovascular invasion. Uncontrolled abdominal pain, on Dilaudid, Duarte's, oxycodone-further recommendations as per oncology. Denies chest pain, palpitations or increased shortness of breath. Maintaining O2 sats in the mid 90s on 2 L nasal cannula. Objective - Vital Signs Vital signs: Vital Signs Temp 98.9 F 04/11/24 08:27 Pulse 94 04/11/24 08:34 Resp 19 04/11/24 08:34 BP 128/75 04/11/24 07:22 Pulse Ox 95 04/11/24 07:22 FiO2 Intake & Output 04/10/24 04/11/24 04/11/24 18:59 06:59 18:59 Intake Total 1200 540 Output Total 1300 2400 800 Balance -100 -1860 -800 Intake: Oral 1200 540 Output: Urine 1300 2400 800 Other: Voiding Method Indwelling Catheter Indwelling Catheter Indwelling Catheter - Exam GENERAL:Alert and oriented x3, sitting up in chair, no acute distress. HEENT: Normocephalic, atraumatic ,pupils are round and equally reactive. No scleral icterus. No conjunctival pallor. MMM. CARDIOVASCULAR: S1 and S2 present. No murmurs, rubs, or gallops. PULMONARY: Unlabored, equal air entry, chest is clear to auscultation, no w heezing or crackles. ABDOMEN: Soft, nondistended, status post surgery ,normoactive bowel sounds. EXTREMITIES: No edema, cyanosis or clubbing. NEUROLOGICAL: Gross neurological examination did not reveal any focal deficits. SKIN: Warm and dry, no rashes. - Labs CBC & Chem 7: 04/11/24 03:12 04/11/24 03:12 Labs: Abnormal Lab Results - Last 24 Hours (Table) 04/10/24 04/10/24 04/10/24 Range/Units 11:21 16:35 19:53 WBC (4.50-10.00) X 10*3/uL RBC (4.40-5.60) X 10*6/uL Hgb (13.0-17.0) g/dL Hct (39.6-50.0) % MCHC (32.0-37.0) g/dL MPV (9.5-12.2) FL Neutrophils # (1.80-7.70) X 10*3/uL Glucose (70-110) mg/dL POC Glucose (mg/dL) 161 H 136 H 163 H (70-110) mg/dL 04/11/24 04/11/24 Range/Units 03:12 03:12 WBC 12.02 H (4.50-10.00) X 10*3/uL RBC 3.65 L (4.40-5.60) X 10*6/uL Hgb 10.1 L (13.0-17.0) g/dL Hct 32.2 L (39.6-50.0) % MCHC 31.4 L (32.0-37.0) g/dL MPV 8.8 L (9.5-12.2) FL Neutrophils # 8.37 H (1.80-7.70) X 10*3/uL Glucose 115 H (70-110) mg/dL POC Glucose (mg/dL) (70-110) mg/dL Assessment and Plan Assessment: Abdominal lymphadenopathy Urinary bladder tumor Post transurethral resection of bladder tumor, pathology reporting high-grade 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 Moderate hydronephrosis postprocedure Acute urinary tract infection present on admission, urine culture reported no growth after 18 hours. Hematuria Leukocytosis Acute hypoxemic respiratory failure Acute kidney injury and contrast-induced nephropathy as well as obstructive uropathy with bilateral hydronephrosis. Baseline creatinine 1. Normocytic anemia Hypercalcemia resolved Vitamin D deficiency Constipation Diabetes mellitus type 2 Hypertension Hyperlipidemia Anxiety Nicotine dependence Daily marijuana use Plan: Continue on current medication resume ,monitoring and symptomatic treatment.Further recommendations per oncology, including pain management. Smoking cessation reinforced. Prognosis poor. The impression and plan of care has been dictated as directed. : I performed a history and examination of this patient, discussed the same with the dictator. I agree with the dictator's note ,documented as a scribe. Any additional findings or plans will be noted.
[2024-04-11 11:35] LABS: Glucose,Whole Blood 131 mg/dL (70-110)
[2024-04-11] MEDS: MORPHINE SULFATE IR 15 MG TABLET PO PRN (14:07)
[2024-04-11] MEDS: MORPHINE SULFATE ER 60 MG TABLET PO SCH ×2 (15:08→20:44)
[2024-04-11 16:47] LABS: Glucose,Whole Blood 132 mg/dL (70-110)
--- NOTE | 2024-04-11 18:48 | P.PN ---
Subjective Progress Note Date: 04/11/24 At today's visit, pt reporting persisting abdominal pain, but pain meds are helping manage pain. Denies n/v. Hematuria resolved within glez. Hgb stable, 10.1 today, plt 320, WBC 12.0, creatinine 1.1, GFR 76 Objective - Vital Signs Vital signs: Vital Signs Temp 98.9 F 04/11/24 08:27 Pulse 94 04/11/24 08:34 Resp 19 04/11/24 08:34 BP 128/75 04/11/24 07:22 Pulse Ox 95 04/11/24 07:22 FiO2 Intake & Output 04/10/24 04/11/24 04/11/24 18:59 06:59 18:59 Intake Total 1200 540 Output Total 1300 2400 800 Balance -100 -1860 -800 Intake: Oral 1200 540 Output: Urine 1300 2400 800 Other: Voiding Method Indwelling Catheter Indwelling Catheter Indwelling Catheter - Constitutional General appearance: Present: average body habitus, no acute distress - EENT Eyes: Present: anicteric sclerae, EOMI ENT: Present: hearing grossly normal - Respiratory Details: breathing is even and unlabored - Cardiovascular Details: skin warm and dry - Gastrointestinal General gastrointestinal: Present: soft, tenderness Localized gastrointestinal: tender: diffuse (mild diffuse tenderness, no guarding ) - Integumentary Integumentary: Absent: cyanotic, jaundiced - Psychiatric Psychiatric: Present: A&O x's 3 - Labs CBC & Chem 7: 04/11/24 03:12 04/11/24 03:12 Labs: Abnormal Lab Results - Last 24 Hours (Table) 04/10/24 04/10/24 04/11/24 Range/Units 16:35 19:53 03:12 WBC 12.02 H (4.50-10.00) X 10*3/uL RBC 3.65 L (4.40-5.60) X 10*6/uL Hgb 10.1 L (13.0-17.0) g/dL Hct 32.2 L (39.6-50.0) % MCHC 31.4 L (32.0-37.0) g/dL MPV 8.8 L (9.5-12.2) FL Neutrophils # 8.37 H (1.80-7.70) X 10*3/uL Glucose (70-110) mg/dL POC Glucose (mg/dL) 136 H 163 H (70-110) mg/dL 04/11/24 04/11/24 Range/Units 03:12 11:34 WBC (4.50-10.00) X 10*3/uL RBC (4.40-5.60) X 10*6/uL Hgb (13.0-17.0) g/dL Hct (39.6-50.0) % MCHC (32.0-37.0) g/dL MPV (9.5-12.2) FL Neutrophils # (1.80-7.70) X 10*3/uL Glucose 115 H (70-110) mg/dL POC Glucose (mg/dL) 131 H (70-110) mg/dL Assessment and Plan (1) Abdominal lymphadenopathy Current Visit: Yes Status: Acute Priority: High Code(s): R59.0 - LOCALIZED ENLARGED LYMPH NODES SNOMED Code(s): 296797462 (2) Bladder wall thickening Current Visit: Yes Status: Acute Priority: High Code(s): N32.89 - OTHER SPECIFIED DISORDERS OF BLADDER SNOMED Code(s): 877822508 (3) Gross hematuria Current Visit: Yes Status: Acute Priority: High Code(s): R31.0 - GROSS HEMATURIA SNOMED Code(s): 252806922 (4) Anemia Current Visit: Yes Status: Acute Priority: Medium Code(s): D64.9 - ANEMIA, UNSPECIFIED SNOMED Code(s): 473788977 (5) Urothelial carcinoma of bladder Current Visit: Yes Status: Acute Priority: High Code(s): C67.9 - MALIGNANT NEOPLASM OF BLADDER, UNSPECIFIED SNOMED Code(s): 206942495 Plan: Urothelial carcinoma: Presented to the ER c/o abdominal pain. He states pain is periumbical and has been ongoing over the last couple months but began to worsen over the last couple days. Also reports ongoing hematuria approx 8 months. Last colonoscopy was approx 10 years ago due to obstruction and underwent colectomy at that time. History of 50 pack year smoking, denies ETOH abuse. Reports 5-10lb weight loss with associated diminished appetite -On admit CT abdomen pelvis with contrast showing irregular wall thickening within urinary bladder. Extensive periaortic adenopathy. Prostate prominence. Diverticulosis without acute diverticulitis and mild diffuse wall thickening through the sigmoid colon. -MRI of T-spine and L-spine obtained on 03/20/2024 showed lymphadenopathy throughout the retroperitoneum, greatest measuring at 33 mm. Bony edema in T5, T6 and T7, favored to be degenerative. -Last PSA was 1.9 on 10/26/22. PSA obtained, mildly elevated at 4.3 -Urology following, s/p cystoscopy and bladder tumor resection. Path showing invasive high grade papillary urothelial carcinoma with invasive carcinoma infiltrating into the lamina propria/subepithelial tissue. Positive for focal lymphovascular invasion. -NGS, PDL-1 requested on pathology -CT chest negative for evidence of metastatic disease. NM bone scan ordered to complete staging -Clinic f/u upon discharge to further discuss goals of care and treatment options Normocytic anemia: -On admit, WBC 16.0, hemoglobin 12.5, MCV 88.6, platelets 427,000. Differential showing neutrophilia, otherwise no significant abnormalities -Upon trending labs, hgb typically in the 15-16 range, hgb was 15.5 on 09/20/23 -Anemia likely r/t ongoing hematuria. Anemia labs obtained to r/o nutritional deficiencies -Iron saturation 6.3%, ferritin 597. IV iron ordered by admitting team. No Vit B12 or folate def. noted -Hgb stable in 10 range. Continue to monitor CBC
[2024-04-11 20:28] LABS: Glucose,Whole Blood 197 mg/dL (70-110)
--- NOTE | 2024-04-11 20:34 | P.PN ---
Subjective Patient is seen for follow-up for acute kidney injury. Serum creatinine at 1.1 mg/dL. Maintained on IV fluids Patient has indwelling Street catheter. 24-hour urine output at 3700ml Objective - Vital Signs Vital signs: Vital Signs Temp 99.6 F 04/11/24 14:30 Pulse 94 04/11/24 14:30 Resp 17 04/11/24 14:30 BP 138/82 04/11/24 14:30 Pulse Ox 95 04/11/24 14:30 FiO2 Intake & Output 04/11/24 04/11/24 04/12/24 06:59 18:59 06:59 Intake Total 540 Output Total 2400 3000 Balance -1860 -3000 Intake: Oral 540 Output: Urine 2400 3000 Other: Voiding Method Indwelling Catheter Indwelling Catheter - Exam Patient is awake, comfortable, no acute distress Examination of the heart S1 and S2 Examination of the lungs bilateral breath sounds are heard Abdomen is soft nontender Examination of lower extremities shows no significant edema - Labs CBC & Chem 7: 04/11/24 03:12 04/11/24 03:12 Labs: Abnormal Lab Results - Last 24 Hours (Table) 04/11/24 04/11/24 04/11/24 Range/Units 03:12 03:12 11:34 WBC 12.02 H (4.50-10.00) X 10*3/uL RBC 3.65 L (4.40-5.60) X 10*6/uL Hgb 10.1 L (13.0-17.0) g/dL Hct 32.2 L (39.6-50.0) % MCHC 31.4 L (32.0-37.0) g/dL MPV 8.8 L (9.5-12.2) FL Neutrophils # 8.37 H (1.80-7.70) X 10*3/uL Glucose 115 H (70-110) mg/dL POC Glucose (mg/dL) 131 H (70-110) mg/dL 04/11/24 04/11/24 Range/Units 16:46 20:27 WBC (4.50-10.00) X 10*3/uL RBC (4.40-5.60) X 10*6/uL Hgb (13.0-17.0) g/dL Hct (39.6-50.0) % MCHC (32.0-37.0) g/dL MPV (9.5-12.2) FL Neutrophils # (1.80-7.70) X 10*3/uL Glucose (70-110) mg/dL POC Glucose (mg/dL) 132 H 197 H (70-110) mg/dL Assessment and Plan Assessment: 1. Acute kidney injury secondary to ATN secondary to contrast associated acute kidney injury as well as obstructive uropathy with bilateral hydronephrosis. Baseline creatinine near 1 and it is 1.1 today. 2. Metastatic muscle invasive bladder cancer status post partial tumor resection this admission. 3. Bilateral hydronephrosis being followed by urology. No plans for intervention as renal function is fairly stable. 4. Diabetes mellitus. 5. Benign hypertension. Controlled. Plan: Continue with IV fluids. Repeat labs in a.m. Follow-up with oncology
[2024-04-12 06:29] LABS: Glucose,Whole Blood 137 mg/dL (70-110)
[2024-04-12 08:36] VITALS: RESP 16
--- NOTE | 2024-04-12 10:30 | P.PN ---
Subjective Progress Note Date: 04/12/24 Patient is status post TURBT for a muscle invasive bladder cancer. He had some mild hydronephrosis postoperatively due to edema but this has normalized. His creatinine is now 1.1. Objective - Vital Signs Vital signs: Vital Signs Temp 94.1 F L 04/12/24 07:51 Pulse 77 04/12/24 07:51 Resp 16 04/12/24 07:51 BP 106/72 04/12/24 07:51 Pulse Ox 97 04/12/24 07:51 FiO2 Intake & Output 04/11/24 04/12/24 04/12/24 18:59 06:59 18:59 Intake Total 360 Output Total 3000 1850 Balance -3000 -1490 Intake: Oral 360 Output: Urine 3000 1850 Other: Voiding Method Indwelling Catheter Indwelling Catheter Indwelling Catheter - Labs CBC & Chem 7: 04/11/24 03:12 04/11/24 03:12 Labs: Abnormal Lab Results - Last 24 Hours (Table) 04/11/24 04/11/24 04/11/24 Range/Units 11:34 16:46 20:27 POC Glucose (mg/dL) 131 H 132 H 197 H (70-110) mg/dL 04/12/24 Range/Units 06:28 POC Glucose (mg/dL) 137 H (70-110) mg/dL Assessment and Plan Assessment: Impression: Status post TURBT. The patient has muscle invasive probable metastatic bladder cancer. Recommendations: From a urologic standpoint he can go home. He should follow-up with in 1 week for catheter removal. He needs to follow with oncology also.
[2024-04-12 12:03] LABS: Glucose,Whole Blood 268 mg/dL (70-110)
--- NOTE | 2024-04-12 13:17 | P.PN ---
Subjective Patient is seen for follow-up for acute kidney injury. Serum creatinine at 1.1 mg/dL. Status post IV fluids Patient has indwelling Street catheter. 24-hour urine output at 4.8 L Objective - Vital Signs Vital signs: Vital Signs Temp 94.1 F L 04/12/24 07:51 Pulse 77 04/12/24 07:51 Resp 16 04/12/24 07:51 BP 106/72 04/12/24 07:51 Pulse Ox 97 04/12/24 07:51 FiO2 Intake & Output 04/11/24 04/12/24 04/12/24 18:59 06:59 18:59 Intake Total 360 Output Total 3000 1850 Balance -3000 -1490 Intake: Oral 360 Output: Urine 3000 1850 Other: Voiding Method Indwelling Catheter Indwelling Catheter Indwelling Catheter - Exam Patient is awake, comfortable, no acute distress Examination of the heart S1 and S2 Examination of the lungs bilateral breath sounds are heard Abdomen is soft nontender Examination of lower extremities shows no significant edema - Labs CBC & Chem 7: 04/11/24 03:12 04/11/24 03:12 Labs: Abnormal Lab Results - Last 24 Hours (Table) 04/11/24 04/11/24 04/12/24 Range/Units 16:46 20:27 06:28 POC Glucose (mg/dL) 132 H 197 H 137 H (70-110) mg/dL 04/12/24 Range/Units 12:01 POC Glucose (mg/dL) 268 H (70-110) mg/dL Assessment and Plan Assessment: 1. Acute kidney injury secondary to ATN secondary to contrast associated acute kidney injury as well as obstructive uropathy with bilateral hydronephrosis. Baseline creatinine near 1 and it is 1.1 today. 2. Metastatic muscle invasive bladder cancer status post partial tumor resection this admission. 3. Bilateral hydronephrosis being followed by urology. No plans for intervention as renal function is fairly stable. 4. Diabetes mellitus. 5. Benign hypertension. Controlled. Plan: F/u with urology post discharge.
[2024-04-12 14:23] VITALS: BP 103/70; PULSE 72; TEMP 98.5
--- NOTE | 2024-04-12 15:06 | NM ---
EXAMINATION TYPE: NM bone scan whole body DATE OF EXAM: 04/12/2024 COMPARISON: Correlation CT 04/07/2024 CLINICAL INDICATION: Male, 59 years old with history of urothelial cancer, staging; Technique: Delayed whole-body scanning was performed following the injection of 23.7 mCi Tc 99m MDP. Images acquired 4.75 hours post injection. FINDINGS: Extensive increased tracer activity is seen throughout the spine, both sides of the pelvis, throughou t the sternum, shoulders, and a few faint foci of activity within the anterior lower ribs. IMPRESSION: Multiple areas of increased activity as above suspicious for osseous metastatic disease. [facility], Workstation: [email or web address], 04/12/2024 3:04 PM
--- NOTE | 2024-04-12 18:48 | P.PN ---
Subjective Progress Note Date: 04/12/24 At today's visit, pt reporting significant improvement in abd pain on current regimen. Hematuria resolved within glez. Hgb stable, 10.1, plt 320, WBC 12.0, creatinine 1.1, GFR 76 Plan for discharge today after bone scan obtained Objective - Vital Signs Vital signs: Vital Signs Temp 94.1 F L 04/12/24 07:51 Pulse 77 04/12/24 07:51 Resp 16 04/12/24 07:51 BP 106/72 04/12/24 07:51 Pulse Ox 97 04/12/24 07:51 FiO2 Intake & Output 04/11/24 04/12/24 04/12/24 18:59 06:59 18:59 Intake Total 360 Output Total 3000 1850 Balance -3000 -1490 Intake: Oral 360 Output: Urine 3000 1850 Other: Voiding Method Indwelling Catheter Indwelling Catheter Indwelling Catheter - Constitutional General appearance: Present: average body habitus, no acute distress - EENT Eyes: Present: anicteric sclerae, EOMI ENT: Present: hearing grossly normal - Respiratory Details: breathing is even and unlabored - Cardiovascular Details: skin warm and dry - Gastrointestinal General gastrointestinal: Present: soft. Absent: tenderness - Integumentary Integumentary: Absent: cyanotic - Psychiatric Psychiatric: Present: A&O x's 3 - Labs CBC & Chem 7: 04/11/24 03:12 04/11/24 03:12 Labs: Abnormal Lab Results - Last 24 Hours (Table) 04/11/24 04/11/24 04/12/24 Range/Units 16:46 20:27 06:28 POC Glucose (mg/dL) 132 H 197 H 137 H (70-110) mg/dL Assessment and Plan (1) Abdominal lymphadenopathy Status: Acute Priority: High Code(s): R59.0 - LOCALIZED ENLARGED LYMPH NODES SNOMED Code(s): 958993542 (2) Bladder wall thickening Status: Acute Priority: High Code(s): N32.89 - OTHER SPECIFIED DISORDERS OF BLADDER SNOMED Code(s): 737908825 (3) Gross hematuria Status: Acute Priority: High Code(s): R31.0 - GROSS HEMATURIA SNOMED Code(s): 915605681 (4) Anemia Status: Acute Priority: Medium Code(s): D64.9 - ANEMIA, UNSPECIFIED SNOMED Code(s): 572197569 (5) Urothelial carcinoma of bladder Status: Acute Priority: High Code(s): C67.9 - MALIGNANT NEOPLASM OF BLADDER, UNSPECIFIED SNOMED Code(s): 139724852 Plan: Urothelial carcinoma: Presented to the ER c/o abdominal pain. He states pain is periumbical and has been ongoing over the last couple months but began to worsen over the last couple days. Also reports ongoing hematuria approx 8 months. Last colonoscopy was approx 10 years ago due to obstruction and underwent colectomy at that time. History of 50 pack year smoking, denies ETOH abuse. Reports 5-10lb weight loss with associated diminished appetite -On admit CT abdomen pelvis with contrast showing irregular wall thickening within urinary bladder. Extensive periaortic adenopathy. Prostate prominence. Diverticulosis without acute diverticulitis and mild diffuse wall thickening through the sigmoid colon. -MRI of T-spine and L-spine obtained on 03/20/2024 showed lymphadenopathy throughout the retroperitoneum, greatest measuring at 33 mm. Bony edema in T5, T6 and T7, favored to be degenerative. -Last PSA was 1.9 on 10/26/22. PSA obtained, mildly elevated at 4.3 -Urology following, s/p cystoscopy and bladder tumor resection. Path showing invasive high grade papillary urothelial carcinoma with invasive carcinoma in filtrating into the lamina propria/subepithelial tissue. Positive for focal lymphovascular invasion. -NGS, PDL-1 requested on pathology -CT chest negative for evidence of metastatic disease. NM bone scan ordered to complete staging -Clinic f/u upon discharge to further discuss goals of care and treatment options Abdominal pain: -Transitioned to oral pain regimen, spoke with PharmD -Pain much improved on current regimen -Continue bowel regimen to prevent opiate induced constipation Pain medications sent from clinic for discharge Normocytic anemia: -On admit, WBC 16.0, hemoglobin 12.5, MCV 88.6, platelets 427,000. Differential showing neutrophilia, otherwise no significant abnormalities -Upon trending labs, hgb typically in the 15-16 range, hgb was 15.5 on 09/20/23 -Anemia likely r/t ongoing hematuria. Anemia labs obtained to r/o nutritional deficiencies -Iron saturation 6.3%, ferritin 597. IV iron ordered by admitting team. No Vit B12 or folate def. noted -Hgb stable in 10 range. Continue to monitor CBC
[2024-04-13] MEDS ORDERED: amLODIPine 5 MG TAB PO SCH (09:00)
== END 2024-04-12 15:49 | disposition home health service (06) | DRG 668 ==
LOC: EC 15:52 → 5NMEDONC 23:38 → 1SOBS 04-04 13:03 → 4SSUR 04-05 13:30 → OBSVTOIN 04-06 10:55
PROVIDERS: ADMIT Family Medicine; ATTEND Family Medicine
PROC: 0TBB8ZZ Excision of Bladder, Via Natural or Artificial Opening Endoscopic (ICD-10-PCS; principal; 2024-04-06 07:30)
PROC: 0TJB8ZZ Inspection of Bladder, Via Natural or Artificial Opening Endoscopic (ICD-10-PCS; 2024-04-06 07:30)
DX: C67.9 Malignant neoplasm of bladder, unspecified (principal); J96.01 Acute respiratory failure with hypoxia; N17.0 Acute kidney failure with tubular necrosis; N13.6 Pyonephrosis; C78.6 Secondary malignant neoplasm of retroperitoneum and peritoneum; N20.1 Calculus of ureter; E78.5 Hyperlipidemia, unspecified; E11.22 Type 2 diabetes mellitus with diabetic chronic kidney disease; E55.9 Vitamin D deficiency, unspecified; E86.0 Dehydration; F17.210 Nicotine dependence, cigarettes, uncomplicated; K57.30 Diverticulosis of large intestine without perforation or abscess without bleeding; R31.0 Gross hematuria; T50.8X5A Adverse effect of diagnostic agents, initial encounter; N40.0 Benign prostatic hyperplasia without lower urinary tract symptoms; N14.11 Contrast-induced nephropathy; X58.XXXA Exposure to other specified factors, initial encounter; D64.9 Anemia, unspecified; F12.90 Cannabis use, unspecified, uncomplicated; F41.9 Anxiety disorder, unspecified; I12.9 Hypertensive chronic kidney disease with stage 1 through stage 4 chronic kidney disease, or unspecified chronic kidney disease; J44.9 Chronic obstructive pulmonary disease, unspecified; M19.90 Unspecified osteoarthritis, unspecified site; M43.17 Spondylolisthesis, lumbosacral region; Z79.51 Long term (current) use of inhaled steroids; Z79.84 Long term (current) use of oral hypoglycemic drugs; Z79.899 Other long term (current) drug therapy; Z85.51 Personal history of malignant neoplasm of bladder; Z87.11 Personal history of peptic ulcer disease; Z87.442 Personal history of urinary calculi; Z90.49 Acquired absence of other specified parts of digestive tract; Z87.19 Personal history of other diseases of the digestive system
CPT/HCPCS: 36415; 71045; 71260; 74177; 78306; 80048; 80053; 81001; 82150; 82306; 82330; 82607; 82652; 82728; 82747; 83036; 83540; 83550; 83605; 83615; 83690; 83735; 83921; 83970; 84153; 84154; 85025; 85027; 86038; 86431; 87086; 88305; 88307; 94640; 94760; 96374; 96375; 96376; 99285

== ENCOUNTER → 2024-04-15 | Outpatient (CLI) | payer BC ==
[2024-04-15 22:30] LABS: HCT 33.2 % (39.6-50.0); HGB 10.5 g/dL (13.0-17.0); MCH 28.1 pg (27.0-32.0); MCHC 31.6 g/dL (32.0-37.0); MCV 88.8 FL (80.0-97.0); NRBC Per 100 WBC 0 X 10*3/uL (0.00-0.01); Platelet Count 401 X 10*3/uL (140-440); RBC 3.74 X 10*6/uL (4.40-5.60); RDW 14.4 % (11.5-14.5); WBC 22.27 X 10*3/uL (4.50-10.00)
[2024-04-15 22:55] LABS: BUN/Creat Ratio 15.44 Ratio (12.00-20.00); Blood Urea Nitrogen 13.9 mg/dL (9.0-27.0); Calcium 8.7 mg/dL (8.7-10.3); Carbon Dioxide 24.5 mmol/L (21.6-31.8); Chloride 103 mmol/L (96-109); Glucose 26 mg/dL (70-110); Potassium 3.8 mmol/L (3.5-5.5); Sodium 139 mmol/L (135-145)
== END | disposition home or self-care (01) ==
LOC: LABWHC1 10:11
PROVIDERS: ATTEND Nurse Practitioner
DX: I10 Essential (primary) hypertension (principal); N17.0 Acute kidney failure with tubular necrosis
CPT/HCPCS: 36415; 80048; 85027

== ENCOUNTER → 2024-07-06 | Outpatient (CLI) | payer BC ==
--- NOTE | 2024-07-06 12:35 | MR ---
EXAMINATION TYPE: MR brain wo/w con DATE OF EXAM: 07/06/2024 11:16 AM COMPARISON: Correlation CT body 04/07/2024 CLINICAL INDICATION: Male, 59 years old with history of C67.9 MALIGNANT NEOPLASM OF BLADDER, UNSPECIF IED, Bladder cancer, nausea and vomiting, Abnormal bone scan IV Contrast: 8 cc Gadobutrol (None if empty) TECHNIQUE: Multiplanar, multisequence images of the brain and brainstem were acquired before and aft er administration of 8 mL IV Gadobutrol. Diffusion weighted imaging is performed. FINDINGS: No evidence for acute infarction, hemorrhage, mass, mass effect, midline shift, herniation, effacemen t of basal cisterns, or extra-axial fluid collection. The ventricles and sulci are age-appropriate. Major intracranial flow voids are intact. T2/FLAIR weighted sequences show no abnormal white matter signal change. There is old wedge infarct l eft posterior inferior cerebellar hemisphere. Midline structures demonstrate normal morphology. The craniocervical junction is normal. Post contrast images demonstrate no evidence of pathologic enhancement. Dural venous sinuses are pat ent. Mild/moderate mucosal thickening ethmoid air cells. Mild within the sphenoid and frontal sinuses. Sev ere throughout the ethmoid air cells. Some rightward nasal septal deviation. Globes appear intact. IMPRESSION: 1. 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 2. No acute intracranial abnormality seen. No abnormal enhancement to suggest intracranial metastases . 3. Chronic pansinus disease, severe in the ethmoid air cells. [facility], Workstation: [email or web address], 07/06/2024 12:33 PM
== END | disposition home or self-care (01) ==
LOC: RADMRIMAIN 09:52
PROVIDERS: ATTEND Internal Medicine Hematology & Oncology
DX: C67.9 Malignant neoplasm of bladder, unspecified (principal); E11.9 Type 2 diabetes mellitus without complications; I10 Essential (primary) hypertension; R11.2 Nausea with vomiting, unspecified
CPT/HCPCS: 70553; A9585

== ENCOUNTER → 2024-07-07 | Outpatient (CLI) | payer BC ==
[2024-07-07 15:33] LABS: African American GFR (CKD) >90 (>60 ml/min/1.73 sqM); Blood Urea Nitrogen 14 mg/dL (9-20); Non-African American GFR(CKD) >90 (>60 ml/min/1.73 sqM)
--- NOTE | 2024-07-09 14:28 | CT ---
EXAMINATION TYPE: CT ChestAbdPelvis w con DATE OF EXAM: 07/07/2024 4:16 PM COMPARISON: 04/07/2024 CLINICAL INDICATION: Male, 59 years old with history of C67.9 MALIGNANT NEOPLASM OF BLADDER, UNSPECIF IED, F/u for bladder cancer. TECHNIQUE: CT ChestAbdPelvis w con , with sagittal coronal reformats. If MIP/3-D images were created, there are created on a separate workstation. Contrast used:100 ml mL of Isovue 300 with IV Contrast, (none if empty) Oral contrast used: without Oral Contrast (none if empty) CT DLP: 1853 mGycm, Automated exposure control for dose reduction was used. FINDINGS: CT CHEST: Portion of the thyroid visualized is normal. No suspicious lung nodules or focal infiltrates are present. No enlarged mediastinal or hilar adenopathy is evident. Mild coronary artery calcifications present. The ascending aorta diameter at the level of the main pulmonary artery is 3.8 cm. The main pulmonary artery diameter at the bifurcation is 2.[address] ABDOMEN: Liver: Normal Spleen: Normal Pancreas: Normal Adrenal glands: The adrenal glands are normal. Gallbladder: Not identified. Kidneys: No masses are evident. No hydronephrosis is present. Scattered small cortical renal cysts are present. Aorta: Vascular calcification is within the aorta. Inferior vena cava: Normal. CT PELVIS: Loops of bowel within the abdomen and pelvis are normal. This study is without oral contrast limi ting bowel evaluation. Appendix: Normal as visualized. Urinary bladder: Diffuse wall thickening compatible with the patient's urinary bladder cancer is pres ent. Genitourinary structures: Prostate appears normal Osseous structures: No suspicious lytic or sclerotic lesions. Lymphadenopathy: Persistent periaortic and retrocaval adenopathy is present appears stable. No new ad enopathy identified. IMPRESSION: 1. Diffuse urinary bladder wall thickening remains present. 2. Retroperitoneal adenopathy in the periaortic and retrocaval regions appears stable. 3. No new changes to suggest new metastatic lesions. [facility], , 07/09/2024 2:26 PM
== END | disposition home or self-care (01) ==
LOC: RADCTMAIN 14:53
PROVIDERS: ATTEND Internal Medicine Hematology & Oncology
DX: C67.9 Malignant neoplasm of bladder, unspecified (principal); E11.9 Type 2 diabetes mellitus without complications; I10 Essential (primary) hypertension; R59.0 Localized enlarged lymph nodes; R11.2 Nausea with vomiting, unspecified
CPT/HCPCS: 82565; 84520; 71260; 74177; 36415; Q9967

== ENCOUNTER → 2024-10-19 | Outpatient (CLI) | payer BC ==
--- NOTE | 2024-10-22 08:32 | PE ---
EXAMINATION TYPE: PET CT fusion skull to thigh DATE OF EXAM: 10/19/2024 CLINICAL INDICATION:Male, 59 years old with history of C67.4 bladder ca; TECHNIQUE: Following the intravenous administration of 11.0 mCi of F-18 FDG, whole body images are performed from the skull base to the midthigh. Images are reviewed on the computer in the coronal, a xial, and sagittal planes. Reconstructed rotating images are created on independent workstation and reviewed on the computer. A non-contrast CT is performed in conjunction with the PET scan. Glucose level 92 mg/dL CT DLP: 790 mGycm, Automated exposure control for dose reduction was used. COMPARISON: CT 07/07/2024, 04/07/2024, 04/03/2024 PET/CT None, MRI: 07/06/2024, nuclear medicine bone scan 04/12/2024 FINDINGS: Mediastinal SUV mean is 1.4. Hepatic parenchyma SUV mean is 1.7. SKULL BASE AND NECK: No suspicious radiotracer activity. CHEST, MEDIASTINUM, AND HILAR REGION: No suspicious radiotracer activity. ABDOMEN AND PELVIS: Circumferential wall thickening of the urinary bladder redemonstrated. No suspicious focal region of wall thickening or FDG activity within the limitations from concentrated radiotracer within the urina ry bladder. Previously seen retroperitoneal adenopathy is subcentimeter without suspicious FDG activity. MUSCULOSKELETAL STRUCTURES: No suspicious radiotracer activity. 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 Bilate ral carotid bifurcation calcifications. Atherosclerotic calcification of the aorta and branches. Mode rate coronary arterial calcifications. Long segment circumferential wall thickening of the descending colon and sigmoid colon. Scattered distal colonic diverticula. Postsurgical changes with anastomosis involving the right hemicolon. Central prostate calcifications. Degenerative changes of the bilatera l SI joints with anterior bridging. Multilevel degenerative changes of the spine. IMPRESSION: Urinary bladder wall thickening without suspicious radiotracer activity to suggest active metastasis. [facility], , 10/22/2024 8:29 AM
== END | disposition home or self-care (01) ==
LOC: RADPETMAIN 10:13
PROVIDERS: ATTEND Internal Medicine Hematology & Oncology
DX: C67.4 Malignant neoplasm of posterior wall of bladder (principal)
CPT/HCPCS: 78815; A9552